=== PATIENT | male | born 1945 | race Caucasian/White ===

== ENCOUNTER 2022-03-19 08:45 | Emergency (ER) | payer MEDICARE, OTHER, SELFPAY ==
[2022-03-19] VITALS (18 sets, daily range): BP systolic 104–157; BP diastolic 66–95; PULSE 64–103; RESP 16–40; TEMP 36.3; O2SAT 93–99; BMI 30.7
--- NOTE | 2022-03-19 10:55 | CRLHL7_ITS ---
For Patients: As a result of the Century Cures Act, medical imaging exams and procedure reports are released immediately into your electronic medical record. You may view this report before your referring provider. If you have questions, please contact your health care provider. INDICATION: SHORTNESS OF BREATH TECHNIQUE: Chest 2 views COMPARISON: 01/22/2021 FINDINGS: Cardiovascular and mediastinum: Postop changes. Cardiac silhouette is mildly prominent. Lungs and pleural spaces: Lungs are clear. No sign of infiltrate or mass. No sign of pleural effusion. No pneumothorax. Bones and soft tissues: No significant findings. IMPRESSION: No acute findings. Dictated by Panda Grullon MD @ 03/19/2022 12:01:42 PM (Electronically Signed)
[2022-03-19 11:39] LABS: Basophils Absolute Auto 0.03 K/uL (0.00-0.30); Basophils Percent Auto 0.4 % (0.0-3.0); Eosinophils Absolute Auto 0.15 K/uL (0.00-0.50); Eosinophils Percent Auto 1.8 % (0.0-7.0); Hematocrit 46.3 % (37.0-53.0); Hemoglobin* 15.8 gm/dL (13.5-17.5); Immature Granulocytes Abs Auto 0.02 K/uL (0.00-0.30); Immature Granulocytes Pct Auto 0.2 %; Lymphocytes Absolute Auto 2.79 K/uL (0.90-2.90); Lymphocytes Percent Auto 33.2 % (20-44); Mean Corpuscular HGB Conc 34 gm/dL (32-36); Mean Corpuscular Hemoglobin 32 pg (26-34); Mean Corpuscular Volume 95 fL (80-100); Monocytes Percent Auto 10.2 % (0.0-11.0); Neutrophils Absolute Auto 4.55 K/uL (1.7-7.0); Neutrophils Percent Auto 54.2 % (42.0-72.0); Platelet Count* 242 K/uL (140-440); RDW Coefficient of Variation % 11.8 % (11.5-15.5); Red Blood Count 4.89 m/uL (4.30-5.90)
[2022-03-19 11:43] LABS: Slide Review Reflex No
[2022-03-19 11:54] LABS: Chloride* 104 mmol/L (96-114); Potassium* 4.3 mmol/L (3.6-5.1); Sodium* 138 mmol/L (135-149)
[2022-03-19 11:55] LABS: INR 2.01 (0.91-1.10); Partial Thromboplastin Time* 43 Seconds (23-33); Prothrombin Time 23.8 Seconds
[2022-03-19 11:57] LABS: Blood Urea Nitrogen* 16 mg/dL (7-30); Carbon Dioxide* 25 mmol/L (20-32); Creatinine* 0.8 mg/dL (0.5-1.5); Est. Creatinine Clearance* 55.83; Estimated Glomerular Filt Rate 91 ml/min; Glucose* 116 mg/dL (60-115)
[2022-03-19 11:58] LABS: Calcium* 9.8 mg/dL (8.4-10.6)
[2022-03-19 12:10] LABS: Troponin I* 0.01 ng/mL (0.01-0.04)
[2022-03-19 12:11] LABS: NT Pro B Type NatriureticPept* 932 pg/mL
[2022-03-19 12:34] LABS: PCR FLU A Negative PCR FLU A (Negative); PCR FLU B Negative PCR FLU B (Negative); PCR RSV Negative PCR RSV (Negative)
[2022-03-19 12:44] LABS: SARS PCR* Negative SARS-CoV-2 (Negative)
--- NOTE | 2022-03-19 12:56 | ED.SOB ---
HPI - SOB/Dyspnea General Date Seen: 03/19/22 Chief Complaint: Shortness of Breath/Dyspnea Stated Complaint: Shortness of breath Time Seen by Provider: 03/19/22 10:46 Source: patient and family Mode of arrival: ambulatory Limitations: no limitations History of Present Illness HPI Narrative: Patient is a very nice 76-year-old gentleman who presents here with the feeling that he needs cardioversion. He has had this multiple times in the past, he has a history of atrial flutter, and since the last 36 hours is noted his heart was a little bit more elevated in nature. By elevated he means rounding faster. He has some very mild shortness of breath when he walks around he denies any chest pain, he has had no leg swelling, coughing hemoptysis fevers chills or other issues. He has been taking his medications regularly, including his Coumadin and is anti dysrhythmic. Presents here with his , Related Data Home oxygen amount: none Home Medications Medication Instructions Recorded Confirmed aspirin 81 mg capsule 81 mg PO DAILY 03/19/22 03/19/22 lisinopril 5 mg tablet 5 mg PO DAILY 03/19/22 03/19/22 metoprolol succinate 100 mg 100 mg PO BID 03/19/22 03/19/22 tablet,extended release 24 hr triamterene-hydrochlorothiazid .ROUTE 03/19/22 warfarin 4 mg tablet 4 mg PO DAILY 03/19/22 03/19/22 Allergies Allergy/AdvReac Type Severity Reaction Status Date / Time No Known Drug Allergies Allergy Verified 03/19/22 09:17 Review of Systems Status of ROS: Reports: 10 or more systems reviewed and unremarkable except as noted in History and below PFSH PFS Social History Smoking Status: Never smoker Do you use any of these nicotine containing products: None Second hand tobacco smoke exposure: No How often do you have a drink containing alcohol: never How often do you have six or more drinks on one occasion: Never AUDIT-C Alcohol total score: 0 Non-prescribed substance use: denies use service: No Exam Narrative: Exam Narrative: Patient is speaking normally, problem with no slurring words, oriented x3. Head eyes ears nose and throat exam show equal pupils, no scleral icterus, extraocular muscles are normal, no facial droop, speech is normal, trachea normal and midline. Thyroid normal midline palpable not enlarged. Chest shows symmetrical rise bilaterally, normal auscultation with no wheezes, no increased work of breathing, no overt bruising or lesions seen, no tenderness is noted on auscultation. Heart sounds normal with no S3-S4 no murmurs clicks or gallops. Abdomen shows no obvious masses or hepatosplenomegaly, no organomegaly, bowel sounds are normal in all quadrants. No tenderness is noted also in all quadrants. Upper and lower extremities show normal power, normal range of motion, pulses are normal, sensations normal, fine motor movements are normal, pelvis is stable to rocking. Cervical spine shows normal range of motion, and palpably not tender. Thoracic spine shows normal range of motion, and palpably not tender, lumbar spine shows no tenderness to palpation percussion and is otherwise normal range of motion. Skin shows no rashes, petechiae or eccymosis. Is rather rate seems to be regular at 110. I reviewed the EKG which showed atrial flutter to 2-1 conduction. Const: Vital Signs, click to edit/add: Vital Signs - 24 hr 03/19/22 09:11 03/19/22 13:37 03/19/22 11:36 Temperature 97.3 F L Pulse Rate 102 H Pulse Rate [Right Pulse Oximeter] 98 Respiratory Rate 16 Blood Pressure Blood Pressure [Ri ght Upper Arm] 134/84 Pulse Oximetry 95 99 93 Oxygen Delivery Me thod Room Air Nasal Cannula Oxygen Flow Rate 2 03/19/22 11:45 03/19/22 12:00 03/19/22 12:02 Temperature Pulse Rate 101 H 100 99 Pulse Rate [Right Pulse Oximeter] Respiratory Rate Blood Pressure 122/88 Blood Pressure [Ri ght Upper Arm] Pulse Oximetry 94 93 93 Oxygen Delivery Me thod Oxygen Flow Rate 03/19/22 12:15 03/19/22 12:30 03/19/22 12:31 Temperature Pulse Rate 99 101 H 101 H Pulse Rate [Right Pulse Oximeter] Respiratory Rate Blood Pressure 112/85 Blood Pressure [Ri t Upper Arm] Pulse Oximetry 95 94 93 Oxygen Delivery Me thod Oxygen Flow Rate 03/19/22 12:45 03/19/22 13:08 03/19/22 13:15 Temperature Pulse Rate 102 H 103 H 102 H Pulse Rate [Right Pulse Oximeter] Respiratory Rate 23 Blood Pressure Blood Pressure [Ri ght Upper Arm] Pulse Oximetry 93 96 98 Oxygen Delivery Me thod Oxygen Flow Rate 03/19/22 13:23 03/19/22 13:27 03/19/22 13:30 Temperature Pulse Rate 67 68 Pulse Rate [Right Pulse Oximeter] Respiratory Rate 20 40 H 33 H Blood Pressure 157/95 H 123/78 Blood Pressure [Ri ght Upper Arm] Pulse Oximetry 97 97 Oxygen Delivery Me thod Oxygen Flow Rate 03/19/22 13:32 03/19/22 13:36 Temperature Pulse Rate 67 64 Pulse Rate [Right Pulse Oximeter] Respiratory Rate 31 H 19 Blood Pressure 117/66 104/67 Blood Pressure [Ri ght Upper Arm] Pulse Oximetry 97 97 Oxygen Delivery Me thod Nasal Cannula Oxygen Flow Rate 2 Documenting provider has reviewed patient's vital signs: yes Common normals: no apparent distress Course Reevaluation(s) Reevaluation #1: With a 2nd ER provider present, we use propofol, for conscious sedation, we were able to do 1 synchronized cardioversion at 50 joules, into normal sinus rhythm, patient tolerated this well is currently in recovery, once he has recovered, we can discharge him home, if he is doing well. Repeat EKG shows normal sinus rhythm, with a rate of 75, Time: 13:34 Vital Signs Vital signs: Initial Vital Signs Temperature 97.3 F L 03/19/22 09:11 Temperature Source Temporal Artery Scan 03/19/22 09:11 Pulse Rate 98 03/19/22 09:11 Respiratory Rate 16 03/19/22 09:11 Blood Pressure 134/84 03/19/22 09:11 Blood Pressure Mean 100 03/19/22 09:11 Blood Pressure Position Sitting 03/19/22 09:11 Pulse Oximetry 95 03/19/22 09:11 Oxygen Delivery Method 03/19/22 09:11 Vital Signs Temperature 97.3 F L 03/19/22 09:11 Pulse Rate 98 03/19/22 09:11 Respiratory Rate 16 03/19/22 09:11 Blood Pressure 134/84 03/19/22 09:11 Pulse Oximetry 95 03/19/22 09:11 Oxygen Delivery Method 03/19/22 09:11 Temperature 97.3 F L 03/19/22 09:11 Pulse Rate 64 03/19/22 13:36 Respiratory Rate 19 03/19/22 13:36 Blood Pressure 104/67 03/19/22 13:36 Pulse Oximetry 99 03/19/22 13:37 Oxygen Delivery Method 03/19/22 13:37 Oxygen Flow Rate 2 03/19/22 13:37 MDM - SOB/Dyspnea MDM Narrative Medical decision making narrative: Differential diagnosis includes but is not limited to psychosocial stress, thyroid abnormalities, CHF, SVT, atrial fibrillation, ventricular tachycardia and ventricular fibrillation. This includes the life-threatening complications of heart failure, V-tach, and VFib Medical Records Attestation: I reviewed the patient's medical records. Lab Data Attestation: I reviewed the patient's lab results. Labs: Lab Results 03/19/22 03/19/22 03/19/22 Range/Units 10:50 10:50 10:50 WBC 8.40 (4.50-11.00) K/uL RBC 4.89 (4.30-5.90) m/uL Hgb 15.8 (13.5-17.5) gm/dL Hct 46.3 (37.0-53.0) % MCV 95 (80-100) fL MCH 32 (26-34) pg MCHC 34 (32-36) gm/dL RDW Coeff of Toy 11.8 (11.5-15.5) % Plt Count 242 (140-440) K/uL Neut % (Auto) 54.2 (42.0-72.0) % Lymph % (Auto) 33.2 (20-44) % [place] % (Auto) 10.2 (0.0-11.0) % Eos % (Auto) 1.8 (0.0-7.0) % Baso % (Auto) 0.4 (0.0-3.0) % Neut # (Auto) 4.55 (1.7-7.0) K/uL Lymph # (Auto) 2.79 (0.90-2.90) K/uL [place] # (Auto) 0.90 (0.00-0.90) K/UL Eos # (Auto) 0.15 (0.00-0.50) K/uL Baso # (Auto) 0.03 (0.00-0.30) K/uL INR 2.01 H (0.91-1.10) APTT 43 H (23-33) Seconds Sodium (135-149) mmol/L Potassium (3.6-5.1) mmol/L Chloride (96-114) mmol/L Carbon Dioxide (20-32) mmol/L BUN (7-30) mg/dL Creatinine (0.5-1.5) mg/dL Estimated Creat Clear Estimated GFR ml/min Glucose (60-115) mg/dL Calcium (8.4-10.6) mg/dL Troponin I (0.01-0.04) ng/mL NT-Pro-B Natriuret Pep pg/mL TSH (0.270-4.20) uIU/mL SARS-CoV-2 (PCR) Negative SARS-CoV-2 (Negative) Influenza Type A (PCR) Negative PCR FLU A (Negative) Influenza Type B (PCR) Negative PCR FLU B (Negative) RSV (PCR) Negative PCR RSV (Negative) 03/19/22 03/19/22 03/19/22 Range/Units 10:50 10:50 10:55 WBC (4.50-11.00) K/uL RBC (4.30-5.90) m/uL Hgb (13.5-17.5) gm/dL Hct (37.0-53.0) % MCV (80-100) fL MCH (26-34) pg MCHC (32-36) gm/dL RDW Coeff of Toy (11.5-15.5) % Plt Count (140-440) K/uL Neut % (Auto) (42.0-72.0) % Lymph % (Auto) (20-44) % [place] % (Auto) (0.0-11.0) % Eos % (Auto) (0.0-7.0) % Baso % (Auto) (0.0-3.0) % Neut # (Auto) (1.7-7.0) K/uL Lymph # (Auto) (0.90-2.90) K/uL [place] # (Auto) (0.00-0.90) K/UL Eos # (Auto) (0.00-0.50) K/uL Baso # (Auto) (0.00-0.30) K/uL INR (0.91-1.10) APTT (23-33) Seconds Sodium 138 (135-149) mmol/L Potassium 4.3 (3.6-5.1) mmol/L Chloride 104 (96-114) mmol/L Carbon Dioxide 25 (20-32) mmol/L BUN 16 (7-30) mg/dL Creatinine 0.8 (0.5-1.5) mg/dL Estimated Creat Clear 55.83 Estimated GFR 91 ml/min Glucose 116 H (60-115) mg/dL Calcium 9.8 (8.4-10.6) mg/dL Troponin I 0.01 (0.01-0.04) ng/mL NT-Pro-B Natriuret Pep 932 pg/mL TSH 1.130 (0.270-4.20) uIU/mL SARS-CoV-2 (PCR) (Negative) Influenza Type A (PCR) (Negative) Influenza Type B (PCR) (Negative) RSV (PCR) (Negative) ECG Data Attestation: I personally reviewed and interpreted this ECG as follows: Prior ECG tracings: available for review Interpretation: atrial flutter 2-1 conduction, Discharge Plan Discharge Clinical Impression: Anticoagulation adequate, Atrial flutter, Encounter for cardioversion procedure Patient Disposition: Home w/ Parent or Adult Condition: Improved Instructions: Atrial Flutter (ED), Safe Use of Anticoagulants (ED) Additional Instructions: home rest continue medications as directed follow-up as needed with primary care, return as needed if increasing chest pain shortness of breath or other symptoms. Prescriptions: No Action metoprolol succinate 100 mg tablet extended release 24 hr 100 mg PO BID aspirin 81 mg capsule 81 mg PO DAILY triamterene-hydrochlorothiazid .ROUTE lisinopril 5 mg tablet 5 mg PO DAILY warfarin 4 mg tablet 4 mg PO DAILY Follow Up/Referrals: Junior Woods MD [Primary Care Provider] - Stand Alone Forms: [employer] Info Instructions
[2022-03-19] MEDS: PROPOFOL 10 MG/ML INJ 75 MG IVP (13:42)
[2022-03-19] MEDS: 0.9 % SODIUM CHLORIDE 1000 ml 1,000 ML IV (13:42)
--- NOTE | 2022-03-19 13:45 | RESP.RT ---
?Cardioversion with propofol, for conscious sedation; patient placed on Nasal Cannula 2 Lpm with EtCO2 in line 36 torr, SaO2 98%, respiratory rate 16/minute. Post cardioversion patient held in jaw thrust maneuver for couple of minutes to assist with patient breathing. Continue with Nasal Cannula 2 Lpm, SaO2 98%, EtCO2 34 torr, respiratory rate 18/minute.
== END 2022-03-19 14:28 | disposition home or self-care (01) ==
PROVIDERS: Emergency Provider Family Medicine; PCP Family Medicine
DX: I48.92 Unspecified atrial flutter (principal); Z79.01 Long term (current) use of anticoagulants
CPT/HCPCS: 36415; 71046; 80048; 83880; 84443; 84484; 85025; 85610; 85730; 87502; 87634; 87635; 92960; 93005; 99285; 99291; J2704; J7030

== ENCOUNTER 2022-07-12 07:01 | Emergency (ER) | payer MEDICARE, OTHER, SELFPAY ==
[2022-07-12] VITALS (41 sets, daily range): BP systolic 88–144; BP diastolic 54–97; PULSE 49–97; RESP 16; TEMP 35.9; O2SAT 88–98; BMI 30.7
--- NOTE | 2022-07-12 07:23 | ED_ITS ---
HPI - General Adult General Time Seen by Provider: 07:10 Date Seen: 07/12/22 Chief complaint: Arrhythmia/Palpitations Stated complaint: afib Time Seen by Provider: 07/12/22 07:08 Source: patient, RN notes reviewed and old records reviewed Mode of arrival: ambulatory Limitations: no limitations History of Present Illness HPI narrative: 77-year-old male with history of atrial fibrillation/flutter who presents today with 2 days of shortness of breath and irregular heartbeat. Patient says he 1st noticed this night before last. He has no chest pain, as noted little bit dyspnea on exertion. No orthopnea, cough, or leg swelling. Reports last INR a month ago was 2.1 and that he has been taking his medications. Took his metoprolol this morning, otherwise has been NPO since last night. Has had prior cardioversion is requesting this again. Denies any recent illness or change of medications. Related Data Home Medications Medication Instructions Recorded Confirmed aspirin 81 mg capsule 81 mg PO DAILY 03/19/22 03/19/22 lisinopril 5 mg tablet 5 mg PO DAILY 03/19/22 03/19/22 metoprolol succinate 100 mg 100 mg PO BID 03/19/22 03/19/22 tablet,extended release 24 hr triamterene-hydrochlorothiazid .ROUTE 03/19/22 warfarin 4 mg tablet 4 mg PO DAILY 03/19/22 03/19/22 Allergies Allergy/AdvReac Type Severity Reaction Status Date / Time No Known Drug Allergies Allergy Verified 03/19/22 09:17 [facility] Social History Smoking Status: Never smoker Do you use any of these nicotine containing products: None Second hand tobacco smoke exposure: No How often do you have a drink containing alcohol: never How often do you have six or more drinks on one occasion: Never AUDIT-C Alcohol total score: 0 Non-prescribed substance use: denies use service: No Exam Narrative: Exam Narrative: General: Well-developed and well-nourished, no acute distress Head: Atraumatic and normocephalic Eyes: Pupils are equal reactive, extraocular motions intact, conjunctiva clear ENT: External nose and ears are normal, posterior pharynx without erythema or exudate Neck: No midline cervical tenderness, full spontaneous range of motion the neck, trachea midline, no adenopathy Heart: Regular rate and rhythm no murmurs or thrills Lungs: Clear to auscultation bilaterally without wheezes or crackles Abdomen: Soft, nontender, nondistended with active bowel sounds Musculoskeletal: No tenderness, deformity, or edema Neurologic: Awake, alert, and oriented x3, no gross focal neurologic deficits, cranial nerves intact as tested Psych: Mood and affect are appropriate Skin: No rashes Const: Vital Signs, click to edit/add: Vital Signs - 24 hr 07/12/22 07:05 Temperature 96.6 F L Pulse Rate [Femora l] 96 Respiratory Rate 16 Blood Pressure [Le ft Upper Arm] 142/97 H Pulse Oximetry 96 Oxygen Delivery Me thod Room Air Course Course Hospital Course: Patient seen and examined, prior records reviewed. Patient presents with dyspnea on exertion, initial EKG demonstrates atrial flutter with 2-1 block. Lungs are clear, no lower extremity swelling. Given time of onset of symptoms and patient is anticoagulated, he is a good candidate for cardioversion. Even if the INR is little bit low today, risk thrombus is low given time of onset of symptoms and patient is requesting to proceed after discussion of risk. Anesthesia is consulted and plan for sedation and cardioversion this morning. Reevaluation(s) Reevaluation #1: Electrical cardioversion for symptomatic atrial flutter. Risks and benefits were discussed with the patient, written consent was signed. Sedation with propofol per anesthesia. A single synchronized shock of 100 joules was delivered with conversion to sinus rhythm initially little bradycardic in the 50s. Patient tolerated this well and was recovered from sedation. Total time 5 minutes Time: 07:32 Reevaluation #2: Labs independently interpreted by me are reassuring with normal electrolytes, normal magnesium, slightly elevated BNP but indeterminate range, INR is pending. When patient recovered from sedation is stable for discharge. Time: 08:01 Vital Signs Vital signs: Initial Vital Signs Temperature 96.6 F L 07/12/22 07:05 Temperature Source Temporal Artery Scan 07/12/22 07:05 Pulse Rate 96 07/12/22 07:05 Pulse Rhythm Regular 07/12/22 07:05 Respiratory Rate 16 07/12/22 07:05 Blood Pressure 142/97 H 07/12/22 07:05 Blood Pressure Mean 112 H 07/12/22 07:05 Pulse Oximetry 96 07/12/22 07:05 Oxygen Delivery Method Room Air 07/12/22 07:05 Vital Signs Temperature 96.6 F L 07/12/22 07:05 Pulse Rate 96 07/12/22 07:05 Respiratory Rate 16 07/12/22 07:05 Blood Pressure 142/97 H 07/12/22 07:05 Pulse Oximetry 96 07/12/22 07:05 Oxygen Delivery Method Room Air 07/12/22 07:05 Temperature 96.6 F L 07/12/22 07:05 Pulse Rate 96 07/12/22 07:05 Respiratory Rate 16 07/12/22 07:05 Blood Pressure 142/97 H 07/12/22 07:05 Pulse Oximetry 96 07/12/22 07:05 Oxygen Delivery Method Room Air 07/12/22 07:05 Medical Decision Making Lab Data Labs: Lab Results 07/12/22 Range/Units 07:20 WBC 7.86 (4.50-11.00) K/uL RBC 5.02 (4.30-5.90) m/uL Hgb 15.8 (13.5-17.5) gm/dL Hct 46.7 (37.0-53.0) % MCV 93 (80-100) fL MCH 32 (26-34) pg MCHC 34 (32-36) gm/dL RDW Coeff of Toy 11.6 (11.5-15.5) % Plt Count 239 (140-440) K/uL Neut % (Auto) 55.8 (42.0-72.0) % Lymph % (Auto) 30.3 (20-44) % [place] % (Auto) 10.1 (0.0-11.0) % Eos % (Auto) 3.1 (0.0-7.0) % Baso % (Auto) 0.3 (0.0-3.0) % Neut # (Auto) 4.40 (1.7-7.0) K/uL Lymph # (Auto) 2.38 (0.90-2.90) K/uL [place] # (Auto) 0.80 (0.00-0.90) K/UL Eos # (Auto) 0.24 (0.00-0.50) K/uL Baso # (Auto) 0.02 (0.00-0.30) K/uL Sodium 133 L (135-149) mmol/L Potassium 3.9 (3.6-5.1) mmol/L Chloride 98 (96-114) mmol/L Carbon Dioxide 25 (20-32) mmol/L BUN 15 (7-30) mg/dL Creatinine 0.8 (0.5-1.5) mg/dL Estimated Creat Clear 54.94 Estimated GFR 91 ml/min Glucose 139 H (60-115) mg/dL Calcium 9.3 (8.4-10.6) mg/dL Magnesium 1.8 (1.5-2.6) mg/dL NT-Pro-B Natriuret Pep 945 pg/mL POC Troponin I 0.02 (0.01-0.04) ng/ml ECG Data Attestation: I personally reviewed and interpreted this ECG as follows: Prior ECG tracings: available for review Interpretation: Performed at 7:05 a.m. demonstrates atrial flutter with 2-1 ventricular block rate 98, left axis deviation, no acute ischemic changes, QTC 464, WI 172. Compared to prior of March 2022, atrial flutter has replaced sinus rhythm but compared to earlier that same day in March 2022, no change Repeat EKG performed after cardioversion at 7:40 a.m. demonstrates sinus rhythm rate 51, nonspecific intraventricular conduction delay, no acute ST elevations or depressions, normal intervals, normal axis. Compared to prior of earlier today sinus rhythm has replaced atrial flutter. Compared to prior of March 04, rate has decreased but otherwise no changes Critical Care Time Critical Care Time Critical Care Time: Yes (Symptomatic atrial flutter (short of breath) ) Attestation: The patient required my highest level preparedness to intervene emergently and I personally spent this critical care time directly and personally managing the patient. This critical care time included: Obtaining a history; Examining the patient; Pulse oximetry; Ordering and reviewing of studies; Arranging urgent treatment with development of a management plan; Evaluation of patients response to treatment; Frequent reassessment discussions with other providers. This critical care time was performed to assess and manage the high probability of imminent life-threatening deterioration that could result in multiorgan failure. It was exclusive of separate billable procedures and treating other patients and teaching time. Total Critical Care Time in Minutes: 25 Discharge Plan Discharge Clinical Impression: Atrial flutter Patient Disposition: Home w/ Parent or Adult Condition: Improved Instructions: Atrial Flutter (DC), Procedural Sedation (ED) Additional Instructions: Continue your current medications and follow up with primary care. No strenuous activity today. Activity Level: No strenuous activity Prescriptions: No Action metoprolol succinate 100 mg tablet extended release 24 hr 100 mg PO BID aspirin 81 mg capsule 81 mg PO DAILY triamterene-hydrochlorothiazid .ROUTE lisinopril 5 mg tablet 5 mg PO DAILY warfarin 4 mg tablet 4 mg PO DAILY Follow Up/Referrals: Junior Woods MD [Primary Care Provider] - Stand Alone Forms: [employer] Info Instructions
[2022-07-12 07:29] LABS: Basophils Absolute Auto 0.02 K/uL (0.00-0.30); Basophils Percent Auto 0.3 % (0.0-3.0); Eosinophils Absolute Auto 0.24 K/uL (0.00-0.50); Eosinophils Percent Auto 3.1 % (0.0-7.0); Hematocrit 46.7 % (37.0-53.0); Hemoglobin* 15.8 gm/dL (13.5-17.5); Immature Granulocytes Abs Auto 0.03 K/uL (0.00-0.30); Immature Granulocytes Pct Auto 0.4 %; Lymphocytes Absolute Auto 2.38 K/uL (0.90-2.90); Lymphocytes Percent Auto 30.3 % (20-44); Mean Corpuscular HGB Conc 34 gm/dL (32-36); Mean Corpuscular Hemoglobin 32 pg (26-34); Mean Corpuscular Volume 93 fL (80-100); Monocytes Percent Auto 10.1 % (0.0-11.0); Neutrophils Percent Auto 55.8 % (42.0-72.0); Platelet Count* 239 K/uL (140-440); RDW Coefficient of Variation % 11.6 % (11.5-15.5); Red Blood Count 5.02 m/uL (4.30-5.90); White Blood Count* 7.86 K/uL (4.50-11.00)
[2022-07-12] MEDS: 0.9 % SODIUM CHLORIDE 1000 ml 1,000 ML IV (07:30)
[2022-07-12 07:42] LABS: Chloride* 98 mmol/L (96-114)
[2022-07-12 07:43] LABS: Potassium* 3.9 mmol/L (3.6-5.1); Sodium* 133 mmol/L (135-149)
[2022-07-12 07:45] LABS: Creatinine* 0.8 mg/dL (0.5-1.5); Est. Creatinine Clearance* 54.94; Estimated Glomerular Filt Rate 91 ml/min
[2022-07-12 07:46] LABS: Blood Urea Nitrogen* 15 mg/dL (7-30); Calcium* 9.3 mg/dL (8.4-10.6); Carbon Dioxide* 25 mmol/L (20-32); Glucose* 139 mg/dL (60-115); Magnesium* 1.8 mg/dL (1.5-2.6)
[2022-07-12 07:47] LABS: Troponin, Point-of-Care* 0.02 ng/ml (0.01-0.04)
[2022-07-12 07:57] LABS: Slide Review Reflex No
[2022-07-12 07:58] LABS: NT Pro B Type NatriureticPept* 945 pg/mL
[2022-07-12 08:00] LABS: INR 2.65 (0.91-1.10); Prothrombin Time 29.5 Seconds
--- NOTE | 2022-07-12 08:04 | W.ANESCHARGE ---
Anesthesia Charges Start Date/Time Anesthesia Start Date: 07/12/22 Anesthesia Start Time: 07:30 Stop Date/Time Anesthesia Stop Date: 07/12/22 Anesthesia Stop Time: 07:38 Summary Emergency: MDA Extremes of Age - Over 70 or under 1: MDA
--- NOTE | 2022-07-12 08:10 | ED.NURSE ---
Cardioversion started at 0732 with jesika leiva and Dr Joseph. Anesthesia gave 75mg propofol at 0732. Pt was cardioverted at 0734. Pt recovered and was able to d/c at 0805. 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 ahas a few appointments and will milk pickup driver pt around [phone]
--- NOTE | 2022-07-12 08:14 | P.ANES_ITS ---
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
--- NOTE | 2022-07-12 08:14 | W.ANESCHARGE ---
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
== END 2022-07-12 09:53 | disposition home or self-care (01) ==
PROVIDERS: Emergency Provider Family Medicine; PCP Family Medicine
DX: I48.92 Unspecified atrial flutter (principal)
CPT/HCPCS: 00410; 36415; 80048; 83735; 83880; 84484; 85025; 85610; 92960; 93005; 94761; 99100; 99140; 99285; 99291; J2704; J7030

== ENCOUNTER 2022-09-03 07:01 | Emergency (ER) | payer OTHER, MEDICARE, SELFPAY ==
[2022-09-03] VITALS (25 sets, daily range): BP systolic 90–141; BP diastolic 56–92; PULSE 49–98; RESP 16–18; TEMP 35.8; O2SAT 91–98; BMI 29.8
--- NOTE | 2022-09-03 07:16 | CRLHL7_ITS ---
For Patients: As a result of the Cures Act, medical imaging exams and procedure reports are released immediately into your electronic medical record. You may view this report before your referring provider. If you have questions, please contact your health care provider. INDICATION: Palpitation COMPARISON: March 19, 2022 TECHNIQUE: Single-view study FINDINGS: TUBES AND LINES: None. HEART AND MEDIASTINUM: The heart size is normal. The mediastinal contour appears normal for patient age.Sternotomy LUNGS AND PLEURAL SPACES: The lungs appear normal.The pleural spaces are unremarkable. OSSEOUS STRUCTURES: Age-appropriate appearance. No acute focal finding. IMPRESSION: No evidence of active pulmonary disease. Sternotomy. Dictated by Natanael Hanks MD @ 09/03/2022 8:02:09 AM (Electronically Signed)
--- NOTE | 2022-09-03 07:17 | ED.ARRPALP ---
HPI - Arrhythmia/Palpitations General Chief Complaint: Arrhythmia/Palpitations Stated Complaint: a-fib Time Seen by Provider: 09/03/22 07:05 History of Present Illness HPI narrative: Patient is a 77-year-old gentleman who has been having symptoms of irregular heartbeat for the last 18-24 hours. Patient has history of paroxysmal atrial flutter and is been cardioverted many times. Patient describes no chest pain no shortness of breath no nausea no vomiting no fevers no chills. His most recent cardioversion was roughly 2 months ago. When asked how many times he has been cardioverted he states more times and he can remember. No other illness recently patient has otherwise been in his usual state of health. Patient is on Coumadin and has been compliant with his medication. Related Data Home Medications Medication Instructions Recorded Confirmed aspirin 81 mg capsule 81 mg PO DAILY 03/19/22 03/19/22 lisinopril 5 mg tablet 5 mg PO DAILY 03/19/22 03/19/22 metoprolol succinate 100 mg 100 mg PO BID 03/19/22 03/19/22 tablet,extended release 24 hr triamterene-hydrochlorothiazid .ROUTE 03/19/22 warfarin 4 mg tablet 4 mg PO DAILY 03/19/22 03/19/22 Allergies Allergy/AdvReac Type Severity Reaction Status Date / Time No Known Drug Allergies Allergy Verified 03/19/22 09:17 Review of Systems Status of ROS: Reports: 6 or more systems reviewed and unremarkable except as noted in History and below [facility] Medical History Hypertension ?I10 - Essential (primary) hypertension (ICD-10) Atrial flutter ?I48.92 - Unspecified atrial flutter (ICD-10) Social History Smoking Status: Never smoker Do you use any of these nicotine containing products: None Second hand tobacco smoke exposure: No How often do you have a drink containing alcohol: never How often do you have six or more drinks on one occasion: Never AUDIT-C Alcohol total score: 0 Non-prescribed substance use: denies use service: Yes Exam Narrative: Exam Narrative: EXAM GENERAL: Patient appears comfortable and well. EYES: No scleral icterus. ENT: Tympanic membranes and oropharynx normal. THYROID: no thyroid nodules or thyromegaly. LYMPH: No supraclavicular or cervical lymphadenopathy. SKIN: Visible skin seen during exam normal or with benign process only. EXT: No dependent lower extremity pedal edema. HEART: Regular rate and rhythm with no murmurs, rubs, or gallops. LUNGS: Clear to auscultation bilaterally with no crackles or wheezes. ABD: Soft, non tender, non distended. PSYCH: Good eye contact, speech is not pressured. Const: Vital Signs, click to edit/add: Vital Signs - 24 hr 09/03/22 07:10 Temperature 96.5 F L Pulse Rate [Right Pulse Oximeter] 96 Respiratory Rate 18 Blood Pressure [Ri ght Upper Arm] 127/92 H Pulse Oximetry 95 Oxygen Delivery Me thod Room Air Course Course Hospital Course: Patient seen examined. Chest x-ray ordered. EKG upon my review shows atrial flutter with 2-1 AV conduction. CBC basic metabolic panel troponin INR pending. Anticipate cardioversion when laboratory studies return. Vital Signs Vital signs: Initial Vital Signs Temperature 96.5 F L 09/03/22 07:10 Temperature Source Temporal Artery Scan 09/03/22 07:10 Pulse Rate 96 09/03/22 07:10 Respiratory Rate 18 09/03/22 07:10 Blood Pressure 127/92 H 09/03/22 07:10 Blood Pressure Mean 103 09/03/22 07:10 Blood Pressure Position Sitting 09/03/22 07:10 Pulse Oximetry 95 09/03/22 07:10 Oxygen Delivery Method Room Air 09/03/22 07:10 Vital Signs Temperature 96.5 F L 09/03/22 07:10 Pulse Rate 96 09/03/22 07:10 Respiratory Rate 18 09/03/22 07:10 Blood Pressure 127/92 H 09/03/22 07:10 Pulse Oximetry 95 09/03/22 07:10 Oxygen Delivery Method Room Air 09/03/22 07:10 Temperature 96.5 F L 09/03/22 07:10 Pulse Rate 96 09/03/22 07:10 Respiratory Rate 18 09/03/22 07:10 Blood Pressure 127/92 H 09/03/22 07:10 Pulse Oximetry 95 09/03/22 07:10 Oxygen Delivery Method Room Air 09/03/22 07:10 MDM - Arrhythmia/Palpitations MDM Narrative Medical decision making narrative: Patient is a 77-year-old gentleman comes in today with atrial flutter with 2-1 conduction. He has been cardioverted many times. I did send off CBC basic metabolic panel on INR. Patient is fully anticoagulated. He is medically stable. I did review the risks and benefits of cardioversion with him and under the sedation of propofol fall with normal saline running at cardiovert him with 50 joules synchronized cardioversion. The the remainder of his laboratory studies will be reviewed by my colleague and patient will be allowed to recover with continuation of his home medications and discharge to home. Critical care time 30 minutes. Differential Diagnosis Differential diagnosis: Likely palpitations, anxiety, sinus tachycardia, artial fibrillation, artial flutter, ventricular premature beats, supraventricular tachycardia, ventricular tachycardia and WPW Lab Data Labs: Lab Results 09/03/22 Range/Units 07:20 WBC 8.71 (4.50-11.00) K/uL RBC 5.17 (4.30-5.90) m/uL Hgb 16.3 (13.5-17.5) gm/dL Hct 48.0 (37.0-53.0) % MCV 93 (80-100) fL MCH 32 (26-34) pg MCHC 34 (32-36) gm/dL RDW Coeff of Toy 11.9 (11.5-15.5) % Plt Count 257 (140-440) K/uL Neut % (Auto) 51.7 (42.0-72.0) % Lymph % (Auto) 35.8 (20-44) % [place] % (Auto) 8.7 (0.0-11.0) % Eos % (Auto) 3.3 (0.0-7.0) % Baso % (Auto) 0.3 (0.0-3.0) % Neut # (Auto) 4.49 (1.7-7.0) K/uL Lymph # (Auto) 3.12 H (0.90-2.90) K/uL [place] # (Auto) 0.80 (0.00-0.90) K/UL Eos # (Auto) 0.29 (0.00-0.50) K/uL Baso # (Auto) 0.03 (0.00-0.30) K/uL INR 2.38 H (0.91-1.10) Sodium 136 (135-149) mmol/L Potassium 4.1 (3.6-5.1) mmol/L Chloride 100 (96-114) mmol/L Carbon Dioxide 23 (20-32) mmol/L BUN 14 (7-30) mg/dL Creatinine 0.7 (0.5-1.5) mg/dL Estimated Creat Clear 56.92 Estimated GFR 94 ml/min Glucose 145 H (60-115) mg/dL Calcium 9.4 (8.4-10.6) mg/dL Discharge Plan Discharge Clinical Impression: Atrial flutter Patient Disposition: Home, Self-Care Condition: Stable Instructions: Atrial Flutter (ED) Additional Instructions: Continue current medications Follow-up with your doctor this week. Activity Level: Activity as Tolerated Discharge Diet: Regular Prescriptions: No Action metoprolol succinate 100 mg tablet extended release 24 hr 100 mg PO BID aspirin 81 mg capsule 81 mg PO DAILY triamterene-hydrochlorothiazid .ROUTE lisinopril 5 mg tablet 5 mg PO DAILY warfarin 4 mg tablet 4 mg PO DAILY Follow Up/Referrals: Junior Woods MD [Primary Care Provider] - Stand Alone Forms: [employer] Info Instructions
[2022-09-03 07:30] LABS: Basophils Absolute Auto 0.03 K/uL (0.00-0.30); Basophils Percent Auto 0.3 % (0.0-3.0); Eosinophils Absolute Auto 0.29 K/uL (0.00-0.50); Eosinophils Percent Auto 3.3 % (0.0-7.0); Hemoglobin* 16.3 gm/dL (13.5-17.5); Immature Granulocytes Abs Auto 0.02 K/uL (0.00-0.30); Immature Granulocytes Pct Auto 0.2 %; Lymphocytes Absolute Auto 3.12 K/uL (0.90-2.90); Lymphocytes Percent Auto 35.8 % (20-44); Mean Corpuscular HGB Conc 34 gm/dL (32-36); Mean Corpuscular Hemoglobin 32 pg (26-34); Mean Corpuscular Volume 93 fL (80-100); Monocytes Percent Auto 8.7 % (0.0-11.0); Neutrophils Absolute Auto 4.49 K/uL (1.7-7.0); Neutrophils Percent Auto 51.7 % (42.0-72.0); Platelet Count* 257 K/uL (140-440); RDW Coefficient of Variation % 11.9 % (11.5-15.5); Red Blood Count 5.17 m/uL (4.30-5.90); White Blood Count* 8.71 K/uL (4.50-11.00)
[2022-09-03 07:38] LABS: Slide Review Reflex No
[2022-09-03 07:49] LABS: Chloride* 100 mmol/L (96-114); Potassium* 4.1 mmol/L (3.6-5.1); Sodium* 136 mmol/L (135-149)
[2022-09-03 07:52] LABS: Blood Urea Nitrogen* 14 mg/dL (7-30); Calcium* 9.4 mg/dL (8.4-10.6); Carbon Dioxide* 23 mmol/L (20-32); Creatinine* 0.7 mg/dL (0.5-1.5); Est. Creatinine Clearance* 56.92; Estimated Glomerular Filt Rate 94 ml/min; Glucose* 145 mg/dL (60-115); INR 2.38 (0.91-1.10); Prothrombin Time 27.2 Seconds
[2022-09-03] MEDS: 0.9 % SODIUM CHLORIDE 1000 ml 1,000 ML IV (08:25)
[2022-09-03] MEDS: PROPOFOL 10 MG/ML INJ 200 MG IVP (08:29)
--- NOTE | 2022-09-03 08:48 | ED.NURSE ---
Conc sedation procedure for 50J cardioversion by Dr. Dave, propofol by Dr. Perry. RT at BS.
--- NOTE | 2022-09-03 08:58 | RESP.RT ---
Airway management for cardioversion. PT tolerated well 4L NC RR 16 before and after procedure. light snoring, no airway management required. SPO2 97%. See nursing charting for the rest of vitals.
[2022-09-03 09:13] LABS: Magnesium* 2.1 mg/dL (1.5-2.6)
[2022-09-03 09:40] LABS: Troponin I* < 0.01 ng/mL (0.01-0.04)
--- NOTE | 2022-09-03 10:04 | PC.NURSE ---
witnessed waste 100mg propofol with Carmelina Joy RN
== END 2022-09-03 09:56 | disposition home or self-care (01) ==
PROVIDERS: Emergency Provider Internal Medicine; PCP Family Medicine
DX: I48.92 Unspecified atrial flutter (principal)
CPT/HCPCS: 36415; 71045; 80048; 83735; 84484; 85025; 85610; 92960; 93005; 99284; 99291; J2704; J7030

== ENCOUNTER 2023-11-13 07:09 | Emergency (ER) | payer MEDICARE, OTHER, SELFPAY ==
[2023-11-13 07:15] VITALS: BP 136/87; PULSE 93; RESP 16; TEMP 36.2; O2SAT 94; BMI 29.8
[2023-11-13 07:48] LABS: Troponin, Point-of-Care* 0.01 ng/ml (0.01-0.04)
--- NOTE | 2023-11-13 08:00 | ED.GENADULT ---
HPI - General Adult General Date Seen: 11/13/23 Chief complaint: Arrhythmia/Palpitations Stated complaint: A-Fib Time Seen by Provider: 11/13/23 07:32 History of Present Illness HPI narrative: 78-year-old gentleman with a history of AFib (and a flutter on 09/03 22 and by 07/12/22 in ER) presenting to the ER this morning for palpitations. He also has a history of previous open cardiac surgery for repair of PFO, stroke about 25 years ago on chronic anticoagulation with warfarin. He says he has had multiple episodes of paroxysmal AFib over the years, roughly about once per year. He underwent cardioversion in August and prior to that had undergone cardioversion in July. He has a history of paroxysmal AFib and is on warfarin for stroke prophylaxis. Patient notes that he checks his vital signs every morning with his blood pressure cuff. Blood pressure is typically normal in pulse rates typically in the 50s because he is on a beta-fredo. Yesterday today when he checked his vital signs he noticed that his pulse rate was higher, in the 90s. She was suspicious that he had gone into AFib. He is not feeling any palpitations but he does feel a little bit jittery and shaky and little bit weak. No chest pain. No shortness of breath. No dizzy spells. No fainting. No swelling in his legs. He came to the ER this morning suspecting that he was in AFib. He has had cardioversions for this in the past. Last meal was 6:00 a.m. last night. Nothing eat or drink this morning. He has had no history of problems with sedation from his previous cardioversions. His summer babysitter is through the [facility]. He sees them at the clinic in [place]. He has some primary care through [facility], [facility] INR in October was about 2.3 Related Data Home Medications ?Medication ?Instructions ?Recorded ?Confirmed aspirin 81 mg capsule 81 mg PO DAILY 03/19/22 03/19/22 lisinopril 5 mg tablet 5 mg PO DAILY 03/19/22 03/19/22 metoprolol succinate 100 mg 100 mg PO BID 03/19/22 03/19/22 tablet,extended release 24 hr triamterene-hydrochlorothiazid .ROUTE 03/19/22 warfarin 4 mg tablet 4 mg PO DAILY 03/19/22 03/19/22 Allergies Allergy/AdvReac Type Severity Reaction Status Date / Time No Known Drug Allergies Allergy Verified 03/19/22 09:17 [facility] Medical History Hypertension ?I10 - Essential (primary) hypertension (ICD-10) Atrial flutter ?I48.92 - Unspecified atrial flutter (ICD-10) Social History Smoking Status: Never smoker Do you use any of these nicotine containing products: None Second hand tobacco smoke exposure: No How often do you have a drink containing alcohol: never How often do you have six or more drinks on one occasion: Never AUDIT-C Alcohol total score: 0 Non-prescribed substance use: denies use service: Yes Exam Narrative: Exam Narrative: Constitutional: Appears well-developed and well-nourished. Alert. Conversant. Non toxic. HENT: Head: Atraumatic. Nose: Nose normal. Mouth/Throat: Oral mucosa is clear and moist. no trismus. Pharynx normal. Tonsils symmetric. No tonsillar enlargement, erythema, or exudate. Mallampati grade 3 Eyes: Conjunctivae normal. EOM normal. Pupils equal, round, and reactive to light. No scleral icterus. Neck: Normal range of motion . full flexion extension. Neck supple. No tracheal deviation present. No JVD Cardiovascular: Normal rate, regular rhythm. No gallop. No friction rub. No murmur heard. Symmetric radial artery pulses Pulmonary/Chest: Effort normal. No stridor. No respiratory distress. No wheezes. No rales. No rhonchi . No tenderness. Abdominal: Soft.No distension. No mass. No tenderness. No rebound. No guarding. Musculoskeletal: RUE: Normal range of motion. No tenderness. No deformity LUE: Normal range of motion. No tenderness. No deformity RLE: Normal range of motion. No edema. No tenderness. No deformity LLE: Normal range of motion. No edema. No tenderness. No deformity Neurological: Alert and oriented to person, place, and time. Normal strength. CN II-VII intact. No sensory deficit. GCS eye subscore is 4. GCS verbal subscore is 5. GCS motor subscore is 6. Normal coordination Skin: Skin is warm and dry. No rash noted. No pallor. Normal capillary refill. Psychiatric: Normal mood. Normal affect. Const: Vital Signs, click to edit/add: Vital Signs - 24 hr 11/13/23 07:15 Temperature 97.1 F L Pulse Rate [Left P ulse Oximeter] 93 Respiratory Rate 16 Blood Pressure [Le ft Upper Arm] 136/87 Pulse Oximetry 94 Oxygen Delivery Me thod Room Air Course Course ED Course: Patient's labs came back showing therapeutic INR. Discussed with cardiology from [facility], Dr. Rosales. He agrees with the plans to cardiovert this morning and if successful discharge home. He will arrange outpatient follow-up with the [facility] and EP clinic. For now stay on the patient is a medications metoprolol, lisinopril, warfarin. Reevaluation(s) Reevaluation #1: We were able to contact [employer]. They came to the ER to help administer some sedation medications and monitor the patient for procedural sedation. See their notes for procedural sedation. We performed synchronized electrical cardioversion for his atrial flutter Procedure: Electrical cardioversion Indication-atrial flutter-symptomatic. Verbal and written consent were obtained from the patient prior to the procedure. Discussed risks and benefits, alternatives. After appropriate anesthesia was induced by [employer] procedure was performed Defibrillator pads were placed in the anterior-posterior position. Positioning and fit was checked by me. We charge the defibrillator to 120 joules. It was synchronized. A single 120 joule shock was administered. Patient had anglican of sinus rhythm. He converted from atrial flutter with 2:1 conduction to sinus bradycardia with occasional PVCs. He awoke from the sedation without complication. He was feeling better after cardioversion. Vital Signs Vital signs: Initial Vital Signs Temperature 97.1 F L 11/13/23 07:15 Temperature Source Temporal Artery Scan 11/13/23 07:15 Pulse Rate 93 11/13/23 07:15 Pulse Rhythm Regular 11/13/23 07:15 Pulse Strength 3+ Normal 11/13/23 07:15 Respiratory Rate 16 11/13/23 07:15 Blood Pressure 136/87 11/13/23 07:15 Blood Pressure Mean 103 11/13/23 07:15 Blood Pressure Position Semi-Fowlers 11/13/23 07:15 Pulse Oximetry 94 11/13/23 07:15 Oxygen Delivery Method Room Air 11/13/23 07:15 Vital Signs Temperature 97.1 F L 11/13/23 07:15 Pulse Rate 93 11/13/23 07:15 Respiratory Rate 16 11/13/23 07:15 Blood Pressure 136/87 11/13/23 07:15 Pulse Oximetry 94 11/13/23 07:15 Oxygen Delivery Method Room Air 11/13/23 07:15 Temperature 97.1 F L 11/13/23 07:15 Pulse Rate 93 11/13/23 07:15 Respiratory Rate 16 11/13/23 07:15 Blood Pressure 136/87 11/13/23 07:15 Pulse Oximetry 94 11/13/23 07:15 Oxygen Delivery Method Room Air 11/13/23 07:15 Medications Administered Medications: Discontinued Medications Generic Name Dose Route Start Last Admin Trade Name Freq PRN Reason Stop Dose Admin Sodium Chloride 1,000 mls @ 1,000 mls/hr 11/13/23 08:34 11/13/23 08:42 0.9 % Sodium Chloride 1000 Ml IV 11/13/23 09:33 1,000 mls/hr .Q1H PREM Administration Medical Decision Making MDM Narrative Medical decision making narrative: This patent presents for evaluation of palpitations. He has a history of paroxysmal AFib in his had this for many years. He is on metoprolol for rate control and warfarin for stroke prophylaxis. Recent INRs have been therapeutic an INR this morning is[]. Time of onset is a little bit unclear but he definitely had it yesterday morning because his heart rate was elevated in the 90s on his monitor, typical rate is in the 50s. Probably started overnight Friday night into Friday. EKG does not show AFib this morning but actually shows atrial flutter with 2:1 conduction. Heart rate is a bit low for 2:1 a flutter (would expect 150) but I suspect this is is slower than normal because he is beta blocked.. Since he does have chronic paroxysmal AFib and is therapeutically anticoagulated on warfarin, I think it is reasonable to proceed with cardioversion. He is a good historian and after obtaining informed consent, electrical cardioversion was successful in converting rhythm back to normal sinus. I doubt acute coronary syndrome, thyroid issues, PE, dissection, drug ingestion, acute electrolyte imbalance, etc. Labs reassuring. Repeat EKG looks excellent. Asymptomatic after cardioversion now and would not hospitalize. Discussed with patient and the patient is in agreement. Discussed post sedation is restrictions and precautions. He will follow-up outpatient with [facility]. Will not change medication at this point as already quite beta-blocked and would not increase. Should see cardiology for recheck. [facility] will reach out to the patient to schedule that appointment. Lab Data Labs: Lab Results 11/13/23 11/13/23 11/13/23 Range/Units 07:30 07:47 08:34 WBC 7.04 (4.50-11.00) K/uL RBC 4.82 (4.30-5.90) m/uL Hgb 15.3 (13.5-17.5) gm/dL Hct 46.1 (37.0-53.0) % MCV 96 (80-100) fL MCH 32 (26-34) pg MCHC 33 (32-36) gm/dL RDW Coeff of Toy 11.9 (11.5-15.5) % Plt Count 252 (140-440) K/uL Neut % (Auto) 54.8 (42.0-72.0) % Lymph % (Auto) 28.7 (20-44) % [place] % (Auto) 10.8 (0.0-11.0) % Eos % (Auto) 4.8 (0.0-7.0) % Baso % (Auto) 0.6 (0.0-3.0) % Neut # (Auto) 3.86 (1.7-7.0) K/uL Lymph # (Auto) 2.02 (0.90-2.90) K/uL [place] # (Auto) 0.80 (0.00-0.90) K/UL Eos # (Auto) 0.34 (0.00-0.50) K/uL Baso # (Auto) 0.04 (0.00-0.30) K/uL Abs Immat Gran (auto) 0.02 (0.00-0.30) K/uL Imm/Tot Granulo (auto) 0.3 % INR 2.00 H (0.91-1.10) Sodium 137 (135-149) mmol/L Potassium 3.8 (3.6-5.1) mmol/L Chloride 103 (96-114) mmol/L Carbon Dioxide 23 (20-32) mmol/L Anion Gap 11 (7-15) mEq/L BUN 16 (7-30) mg/dL Creatinine 0.8 (0.5-1.5) mg/dL Estimated Creat Clear 56.00 Estimated GFR 90 ml/min Glucose 140 H (60-115) mg/dL Calcium 9.2 (8.4-10.6) mg/dL POC Troponin I 0.01 (0.01-0.04) ng/ml Discharge Plan Discharge Clinical Impression: Atrial flutter Patient Disposition: Home, Self-Care Condition: Stable Instructions: Atrial Flutter (DC) Additional Instructions: As we discussed, come back to the ER right away if you have any problems such as more palpitations, dizzy spells, chest pain, trouble breathing. For today be careful. Light activities are okay but avoid strenuous physical activity. Do not drive or operate power tools because the sedation medications may make you a little bit drowsy and slow your reflexes. You should receive a phone call from the [facility] to arrange a follow-up appointment. If you do not hear from them by tomorrow, call your summer babysitter to arrange a follow-up appointment. Continue on your current medications including warfarin and metoprolol at their current doses. Prescriptions: No Action metoprolol succinate 100 mg tablet extended release 24 hr 100 mg PO BID aspirin 81 mg capsule 81 mg PO DAILY triamterene-hydrochlorothiazid .ROUTE lisinopril 5 mg tablet 5 mg PO DAILY warfarin 4 mg tablet 4 mg PO DAILY Follow Up/Referrals: Junior Woods MD [Primary Care Provider] - Stand Alone Forms: [employer] Info Instructions
[2023-11-13 08:19] VITALS: O2SAT 99
[2023-11-13 08:27] LABS: Basophils Absolute Auto 0.04 K/uL (0.00-0.30); Basophils Percent Auto 0.6 % (0.0-3.0); Eosinophils Absolute Auto 0.34 K/uL (0.00-0.50); Eosinophils Percent Auto 4.8 % (0.0-7.0); Hematocrit 46.1 % (37.0-53.0); Hemoglobin* 15.3 gm/dL (13.5-17.5); Immature Granulocytes Abs Auto 0.02 K/uL (0.00-0.30); Immature Granulocytes Pct Auto 0.3 %; Lymphocytes Absolute Auto 2.02 K/uL (0.90-2.90); Lymphocytes Percent Auto 28.7 % (20-44); Mean Corpuscular HGB Conc 33 gm/dL (32-36); Mean Corpuscular Hemoglobin 32 pg (26-34); Mean Corpuscular Volume 96 fL (80-100); Monocytes Percent Auto 10.8 % (0.0-11.0); Neutrophils Absolute Auto 3.86 K/uL (1.7-7.0); Neutrophils Percent Auto 54.8 % (42.0-72.0); Platelet Count* 252 K/uL (140-440); RDW Coefficient of Variation % 11.9 % (11.5-15.5); Red Blood Count 4.82 m/uL (4.30-5.90); White Blood Count* 7.04 K/uL (4.50-11.00)
[2023-11-13 08:30] LABS: Slide Review Reflex No
[2023-11-13 08:40] LABS: Chloride* 103 mmol/L (96-114); Sodium* 137 mmol/L (135-149)
[2023-11-13 08:41] LABS: Potassium* 3.8 mmol/L (3.6-5.1)
[2023-11-13] MEDS: 0.9 % SODIUM CHLORIDE 1000 ml 1,000 ML IV (08:42)
[2023-11-13 08:43] LABS: Creatinine* 0.8 mg/dL (0.5-1.5); Estimated Glomerular Filt Rate 90 ml/min
[2023-11-13 08:44] LABS: Anion Gap 11 mEq/L (7-15); Blood Urea Nitrogen* 16 mg/dL (7-30); Calcium* 9.2 mg/dL (8.4-10.6); Carbon Dioxide* 23 mmol/L (20-32); Glucose* 140 mg/dL (60-115)
--- OUTSIDE RECORDS SUMMARY | 2023-11-13 08:48 | XMS_ITS | Encounter Summary ---
Author Name [facility] Organization [facility] Address [address] [place] [id number] Care Team Providers Care Chief Enterprise Architect Name Role Phone CATIE GAN Primary Care Provider Unavailabl e Insurance Providers: All historical and current Section Date Range: From patient's date of to the date document was created. This section includes the names of all active insurance providers for the patient. Insurance Provider Type of Coverage Plan Name Start of Policy Coverage End of Policy Coverage Group Number Member ID Insurance Provider's Telephone Number Policy Reyez's Name Patient's Relationship to Policy Reyez [employer] [facility] MEDICARE ADVANTAGE [facility] ([facility]) Mar 03, 2018 [id number] FLEX FRAGOSO PATIENT [facility] ([facility]) MEDICARE ADVANTAGE [facility] ([facility]) Mar 03, 2021 [id number] FLEX FRAGOSO PATIENT Selected Encounter This section includes the information on record at [place] for the Encounter. Date/Time Encounter Type Encounter Description Reason Provider Source Mar 11, 2023 09:00 AM OFFICE O/P EST MOD 30 MIN DERMATOLOGY ICD-10-CM D48.5 Neoplasm of uncertain behavior of skin DINORAH SCHWAB Encounter Template Text not used by [place] Assessments - Encounter Diagnoses This section includes the primary and secondary diagnoses documented for the Encounter. Date/Time Primary/Secondary Diagnosis Diagnosis Name Provider Source Mar 11, 2023 09:26 AM PRIMARY Neoplasm of uncertain behavior of skin DYLON MCCRAY [facility] Mar 11, 2023 09:26 AM SECONDARY Personal history of other malignant neoplasm of skin SHAZIADEBORAS MIRANDA Mikki [facility] Plan of Treatment: Future Appointments (+ 6 months) and Future Tests (+/- 45 days) The Plan of Treatment section includes future care activities for the patient from all [place] treatmentfacilities. This section includes future appointments and future orders which are active, pending or scheduled. Future Appointments This section includes appointments that were scheduled to occur 6 months from the date of the Encounter, up to a maximum of 20 appointments. The data comes from all [place] treatment facilities. Appointment Date/Time Appointment Type Appointme nt Facility Name May 06, 2023 08:00 AM AMB[facility]ATORY - NONE [place] [facility] Jun 03, 2023 08:15 AM AMBULATORY - NONE [place] [facility] Jun 03, 2023 08:30 AM AMBULATORY - NONE [place] [facility] Jun 09, 2023 01:30 PM AMBULATORY [place] SURGERY [place] [facility] July 22, 2023 08:15 AM AMBULATORY - NONE [place] [facility] Aug 15, 2023 08:00 AM AMBULATORY - SURGERY [place] [facility] Aug 27, 2023 08:00 AM AMBUL[place]ORY [place]ICINE [place] [facility] Aug 27, 2023 08:45 AM AMBULATORY - NONE [place] [facility] Aug 27, 2023 09:00 AM AM[facility]ORY - NONE [facility] Lab Results: +/- 30 days of the encounter This section includes the Chemistry and Hematology Lab Results on record with [place] for the patient. Radiology Reports and Pathology Reports are provided separately, in subsequent sections. Lab Results This section contains the Chemistry/Hematology Results that were resulted 30 days before or 30 daysafter the date of the Encounter. Date/Time Source Result Type Result - Unit Interpretation Reference Range Comment Mar 11, 2023 07:48 AM [facility] POC INR(COAGUCHEK) Specimen Type: BLOOD No comment entered. Ordering Provider: GUY LINDSAY Report Released Date/Time: Mar 11, 2023 07:51 AM Reporting Lab: [facility] [id number] Performing Lab: [facility] [id number] POC INR(COAGU CHEK) 2.5 {INR} H 0.8-1.1 Social History: Smoking Status (Most current) and Tobacco Use (All prior to encounter date) This section includes the most current, and the historical, smoking and tobacco- related health factors from the [place] facility where the Encounter took place. Current Smoking Status This section includes the most current smoking, or tobacco-related health factor, from the [place] facility where the Encounter took place. Date/Time Current Smoking Status Comment Facil ity May 09, 2022 08:45 AM VA-TOBACCO FORMER USER [facility] Tobacco Use History This section includes a history of the smoking, or tobacco-related health factors, that were collected on or before the date of the Encounter. The data comes from the [place] facility where the Encounter took place. Date/Time Smoking Status/Tobacco Use Comment F acility May 09, 2022 08:45 AM VA-TOBACCO QUIT 15 YRS OR MORE [facility] May 30, 2021 08:15 AM VA-TOBACCO FORMER USER [facility] May 30, 2021 08:15 AM VA-TOBACCO QUIT 15 YRS OR MORE [facility] May 29, 2020 08:30 AM VA-TOBACCO FORMER USER [facility] May 29, 2020 08:30 AM VA-TOBACCO QUIT 15 YRS OR MORE [facility] Feb 09, 2019 09:07 AM VA-TOBACCO FORMER USER [facility] Feb 09, 2019 09:07 AM VA-TOBACCO QUIT 15 YRS OR MORE [facility] Apr 22, 2018 10:04 AM VA-TOBACCO FORMER USER [facility] Apr 22, 2018 10:04 AM VA-TOBACCO QUIT 15 YRS OR MORE [facility] Apr 02, 2017 09:41 AM FORMER TOBACCO USER 7Y OR GREATE R [facility] Apr 02, 2016 02:38 PM FORMER TOBACCO USER 7Y OR GREATE R [facility] Apr 26, 2015 08:09 AM FORMER TOBACCO USER 7Y OR GREATE R [facility] May 17, 2014 08:12 AM FORMER TOBACCO USER 7Y OR GREATE R [facility] Sep 11, 2010 12:27 PM FORMER TOBACCO USER 7Y OR GREATE R [facility] Pathology Reports: +/- 30 days of the encounter Pathology Reports For cases when an order for pathology services may have been completed prior to the date of the Encounter, the report list includes the Pathology Reports that were completed up to 30 days before dateof the Encounter. For cases when an order for pathology services may have been completed after the date of the Encounter, the report list also includes the Pathology Reports that were completed up to30 days after date of the Encounter. The data comes from all [place] treatment facilities. Date/Time Pathology Report Provider Source Mar 14, 2023 01:07 PM LR SURGICAL PATHOL OGY REPORT: LOCAL TITLE: LR SURGICAL PATHOLOGY REPORT STANDARD TITLE: PATHOLOGY REPORT DATE OF NOTE: MAR 14, 2023@13:07:51 ENTRY DATE: MAR 14, 2023@13:07:51 AUTHOR: KASI MÉNDEZ EXP COSIGNER: URGENCY: STATUS: COMPLETED $APHDR Reporting Lab: [facility] [CLIA# [id number]] [place] [address] - - - - - - - - - - - - - - - - - - - - - - - - - - - - - - - - - - - - - - - - MEDICAL RECORD SURGICAL PATHOLOGY - - - - - - - - - - - - - - - - - - - - - - - - - - - - - - - - - - - - - - - - PATHOLOGY REPORT Accession No. [id number] - - - - - - - - - - - - - - - - - - - - - - - - - - - - - - - - - - - - - - - - $TEXT Submitted by: DIONNE MCCRAY Date obtained: Mar 11, 2023 - - - - - - - - - - - - - - - - - - - - - - - - - - - - - - - - - - - - - - - - Specimen (Received Mar 11, 2023 13:22): RIGHT DENOMINATIONAL - - - - - - - - - - - - - - - - - - - - - - - - - - - - - - - - - - - - - - - - BRIEF CLINICAL HISTORY: Pearly papule with telangiectasias Procedure: Shave - - - - - - - - - - - - - - - - - - - - - - - - - - - - - - - - - - - - - - - - PREOPERATIVE DIAGNOSIS: BCC vs vikash hyperplasia - - - - - - - - - - - - - - - - - - - - - - - - - - - - - - - - - - - - - - - - OPERATIVE FINDINGS: - - - - - - - - - - - - - - - - - - - - - - - - - - - - - - - - - - - - - - - - POSTOPERATIVE DIAGNOSIS: Surgeon/physician: DIONNE MCCRAY =-=-=-=-=-=-=-=-=-=-=-=-=- =-=-=-=-=-=-=-=-=-=-=-=-=- =-=-=-=-=-=-=-=-=-=-=-=-=- = - - - - - - - - - - - - - - - - - - - - - - - - - - - - - - - - - - - - - - - - PATHOLOGY REPORT Accession No. [id number] - - - - - - - - - - - - - - - - - - - - - - - - - - - - - - - - - - - - - - - - GROSS DESCRIPTION: The requisition form and specimen identification is confirmed. The specimen is labeled right hinduism and consists of two shave biopsies of indurated abbott skin measuring 0.5 X 0.5 X 0.1 cm and 0.7 X 0.5 X 0.1 cm. Both tissue fragments are inked. ce (D) SMcCoy/er MICROSCOPIC DESCRIPTION: Microscopic examination performed. This case was seen in consultation by Dr. Maverick Medina, dermatopathologist. RS. DIAGNOSIS: Skin, right hinduism, shave biopsy-- - Nodular and infiltrative basal cell carcinoma - Deep and peripheral margins involved /es/ KASI MÉNDEZ STAFF PATHOLOGIST, PATHOLOGY & LABORATORY [facility] [place] Signed Mar 14, 2023@13:07 Performing Laboratory: Surgical Pathology Report Performed By: [facility] [CLIA# [id number]] [place] [address] $FTR - - - - - - - - - - - - - - - - - - - - - - - - - - - - - - - - - - - - - - - - (End of report) KASI ellis Date Mar 14, 2023 - - - - - - - - - - - - - - - - - - - - - - - - - - - - - - - - - - - - - - - - CECI FRAGOSO STANDARD FORM 515 ID:[id number] SEX:M :[id number] AGE: 77 LOC:[id number] PCP: AXEL Young /bryant/ KASI MÉNDEZ STAFF PATHOLOGIST, PATHOLOGY & LABORATORY [facility] [place] Signed: 03/14/2023 13:07 KASI MÉNDEZ [facility] Encounter Notes: All associated encounter notes This section contains the clinical notes associated to the Encounter. 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 This case was seen in consultation by Dr. Maverick Medina, dermatopathologist. RS. DIAGNOSIS: Skin, right hinduism, shave biopsy-- - Nodular and infiltrative basal cell carcinoma - Deep and peripheral margins involved S: Otherwise feeling well and biopsy site healing well. A/P: Informed patient of results above. Patient will be referred for Mohs at [facility]. Procedure explained to patient. Will await call for scheduling MMS. Clinically indicated date 12 W Total encounter time: 15 min Staff: Dr. Hernandez /bryant/ DIONNE MCCRAY DO RESIDENT, DERM Signed: 03/18/2023 11:40 Receipt Acknowledged By: 04/29/2023 09:42 /bryant/ NARESH HERNANDEZ MD [facility]AIN JERK 03/19/2023 ADDENDUM STATUS: COMPLETED I have attempted to reach the pateinet to schedule his MOHS appt no answer. I left with my name and phone number. /bryant/ ASIA ORTEGA state director Nurse Surgery Coordinator Signed: 03/19/2023 11:07 04/29/2023 ADDENDUM STATUS: COMPLETED I discussed the patient with the resident, reviewed any available photos and agree with the assessment and plan as written in the resident's note. /bryant/ NARESH HERNANDEZ MD [facility] [employer] Signed: 04/29/2023 09:42 DIONNE MCCRAY [facility] Mar 11, 2023 10:22 AM DERMATOLOGY NURSIN G OUTPATIENT NOTE: LOCAL TITLE: DERMATOLOGY CLINIC NURSING NOTE STANDARD TITLE: DERMATOLOGY NURSING OUTPATIENT NOTE DATE OF NOTE: MAR 11, 2023@10:22 ENTRY DATE: MAR 11, 2023@10:22:21 AUTHOR: SRAVANTHI COLEMAN COSIGNER: URGENCY: STATUS: COMPLETED Dermatology Clinic Nursing Note Post Procedure Nursing Note vaseline, band-aid applied to biopsy site on the right scalp. This bandage should be kept clean and dry for 1 days. After 1 days the bandage can be removed and the biopsy site should be gently cleaned once per day with a damp washcloth, patted dry, then covered with vaseline and a bandage. Daily cleaning and dressing changes should be done until skin is fully healed. No other products should be used on the biopsy site i.e., hydrogen peroxide, rubbing alcohol, skin oils, creams, prescriptions until the area is completely healed. Educational Screening: Barriers to Learning/Special Needs: No Barriers Identified Preferred Style of Learning: No preference stated Teaching Strategy: 1:1 Written/printed material Instruction: Patient/family/caregiver instructed in standard Post-Biopsy and Cryotherapy wound care. Printed instruction sheet provided for home reference: Skin Biopsy Patient Instruction, Care After Freezing with Liquid Nitrogen Understanding: Patient/family/caregiver: Able to verbalize understanding. 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 - Patient reports that he has a spot on his right hinduism that he has noticed, referred from [facility] - Personal history of skin cancer: as above - Family history of skin cancer: no history of melanoma - Denies other lesions that are tender, non-healing or bleeding. - Dermatitis has improved after triamcinolone, no concerns on this at this time - No other spots or areas of concern OBJECTIVE: GEN: A&O x3. No acute distress. SKIN: UBSE of the head, neck, chest, abdomen, back, bilateral upper extremities, and hands was performed and notable for the following significant findings: - small linear pigemented lesion to the glabella, pigement network regular 2-3 mm - pearly papule ~ 4 mm in diameter with arborizing vessels and heaped borders present, no umbilication noted - On the trunk and extremities, there are scattered flesh-colored to brown, waxy, stuck-on papules and plaques - On the trunk and extremities with accentuation in sun-exposed areas, there are light brown macules with uniform appearance - On the trunk and extremities, there are scattered medium brown macules with uniform pigment networkds under dermoscopy - On trunk and extremities, there are scattered bright red papules. - Previous sites of skin cancer noted above were examined. No evidence for recurrence by inspection or palpation ASSESSMENT & PLAN: # NUB, right hinduism, s/p shave 03/11/2023 - ddx: bcc vs vikash hyperplasia # History of NMSC. - No evidence of recurrence on exam today. # iSK, right popliteal fossa - LN2 as below # Benign skin findings - Seborrheic keratoses - Solar lentigines - Sethi hemangiomas - Clinically benign melanocytic nevi - Reassured of benign etiology - ABCDEs of melanoma discussed - Encouraged sunscreen and sun protective behaviors PROCEDURES CRYOTHERAPY PROCEDURE NOTE: iSK on right popliteal fossa On the, 1 lesion(s) treated with 1-2 freeze-thaw cycles of liquid nitrogen cryotherapy. Counseled that lesions will become red, may blister, and then heal in 1-2 weeks. Risks including recurrence and scarring were dicussed. Patient endorsed understanding. SHAVE BIOPSY PRODEDURE NOTE: right hinduism A time-out was taken prior to the procedure to verify correct patient, correct site(s) and correct procedure. After verifying patients identification and obtaining verbal informed consent, including discussions of the risks of bleeding, infection, and scarring, the lesion(s) was cleansed with an alcohol swab then injected with 1% lidocaine with epinephrine. A Berenice blade and/or Dermablade was used to shave the lesion(s). Specimen(s) was labeled and sent to pathology in formalin. Aluminum chloride was applied for chemical cauterization. Petrolatum and bandaid were applied to the biopsy site(s). Post- biopsy wound care was discussed in detail. RTC [address] Schwab saw and evaluated the patient with me, and agrees with the findings, assessment and plan as outlined. /bryant/ DIONNE MCCRAY DO RESIDENT, DERM Signed: 03/11/2023 09:36 Receipt Acknowledged By: 03/22/2023 18:56 /po SCHWAB MD INTERNAL MEDICINE/DERMATOLOGY STAFF 03/22/2023 ADDENDUM STATUS: COMPLETED I saw and evaluated the patient. I reviewed the resident's note and agree. I was physically present during the granados portions of the procedure and available during the entire procedure as the attending surgeon, providing medically necessary supervision, and ready to perform any service required as the surgeon. /po SCHWAB MD INTERNAL MEDICINE/DERMATOLOGY STAFF Signed: 03/22/2023 18:56 DOINNE MCCRAY [facility]
--- OUTSIDE RECORDS SUMMARY | 2023-11-13 08:48 | XMS_ITS | Encounter Summary ---
Author Name [facility] [place] [place] Organization [facility] [place] [facility] [place] Address [address] [place] [address] Care Team Providers Care Heating Unit Mechanic Name Role Phone CATIE GAN Primary Care [...] Name Patient's Relationship to Policy Reyez HUMANA [facility] ([facility]) MEDICARE ADVANTAGE [facility] ([facility]) Mar 03, 2018 [id number] FLEX BETHEA IP PATIENT [facility] ([facility]) MEDICARE ADVANTAGE [facility] ([facility]) Mar 03, 2021 [id number] FLEX BETHEA PATIENT Selected Encounter This section includes the information on record at [place] for the Encounter. Date/Time Encounter Type Encounter Description Reason Provider Source Jan 14, 2023 08:45 AM OFFICE O/P EST LOW 20-29 MIN PRIMARY CARE/MEDICINE ICD-10-CM I10 Essential (primary) hypertension ERIC JESUS Maria Esther Encounter Template Text not used by [place] Assessments - Encounter Diagnoses This section includes the primary and secondary diagnoses documented for the Encounter. Date/Time Primary/Secondary Diagnosis Diagnosis Name Provider Source Jan 19, 2023 04:06 PM PRIMARY Essential (primary) hypertension ERIC JESUS [facility] Jan 19, 2023 04:06 PM SECONDARY Carcinoma in situ of skin of other sites ERIC JESUS [facility] Jan 19, 2023 04:06 PM SECONDARY Encounter for immunization LYNNE WILSON [facility] Jan 19, 2023 04:06 PM SECONDARY Hyperlipidemia, unspecified ERIC JESUS [facility] Jan 19, 2023 04:06 PM SECONDARY Nummular dermatitis ERIC JESUS [facility] Jan 19, 2023 04:06 PM SECONDARY Obstructive sleep apnea (adult) (pediatric) ERIC JESUS [facility] Jan 19, 2023 04:06 PM SECONDARY Paroxysmal atrial fibrillation ERIC JESUS [facility] Jan 19, 2023 04:06 PM SECONDARY Type 2 diabetes mellitus without complications ERIC JESUS [facility] Plan of Treatment: Future Appointments (+ 6 months) and Future Tests (+/- 45 days) The Plan of Treatment section includes future care activities for the patient from all [place] [facility]. This section includes future appointments and future orders which are active, pending or scheduled. Future Appointments This section includes appointments that were scheduled to occur 6 months from the date of the Encounter, up to a maximum of 20 appointments. The data comes from all [facility] facilities. Appointment Date/Time Appointment Type Appointme nt Facility Name Mar 11, 2023 08:00 AM AMBULATORY - NONE [facility] Mar 11, 2023 09:00 AM AMBULATORY - SURGERY [facility] May 06, 2023 08:00 AM AMBULATORY - NONE [facility] Jun 03, 2023 08:15 AM AMBULATORY NONE [facility] Jun 03, 2023 08:30 AM AMBULATORY - NONE [facility] Jun 09, 2023 01:30 PM AMBULATORY - SURGERY [facility] Lab Results: +/- 30 days of the encounter This section includes the Chemistry and Hematology Lab Results on record with [place] for the patient. Radiology Reports and Pathology Reports are provided separately, in subsequent sections. Lab Results This section contains the Chemistry/Hematology Results that were resulted 30 days before or 30 daysafter the date of the Encounter. Date/Time Source Result Type Result - Unit Interpretation Reference Range Comment Jan 14, 2023 07:42 AM [facility] POC INR([place]K) Specimen Type: BLOOD No comment entered. Ordering Provider: GUY LINDSAY Report Released Date/Time: Jan 14, 2023 07:47 AM Reporting Lab: [facility] [id number] Performing Lab: [facility] [id number] POC INR([place]K) 2.1 {INR} H Jan 14, 2023 07:40 AM [facility] HEMOGLOBIN A1C Specimen Type: BLOOD Comment: Values obtained from A1C measurements can vary. For typical A1C assays, a reported value of 7.0 could actually be between 6.7 and 7.3 if measured by a reference method. A reported value of 9.0 could actually be between 8.7 and 9.3. Ref: http://www.ng sp.org/CAPdat a.asp Ordering Provider: LAURA XIAO Report Released Date/Time: May 09, 2022 09:23 AM Reporting Lab: [facility] [id number] Performing Lab: [facility] [phone] HEMOGLOBIN A1C 6.2 H 4.0-6.0 Jan 14, 2023 07:40 AM [facility] COMPREHENSIVE METABOLIC PANEL+MG Specimen Type: PLASMA No comment entered. Ordering Provider: LAURA XIAO Report Released Date/Time: May 09, 2022 09:23 AM Reporting Lab: [facility] [id number] Performing Lab: [facility] [phone] CREATININE 0.8 mg/dL 0.7-1.2 UREA NITROGEN 11 mg/dL 8-26 GLUCOSE 131 mg/dL H 70-100 SODIUM 136 mmol/L 136-145 POTASSIUM 4.1 mmol/L 3.5-5.1 CHLORIDE 101 mmol/L 98-107 CO2 26 mmol/L 22-29 CALCIUM 9.3 mg/dL 8.4-10.2 PROTEIN,TOTAL 7.2 g/dL 6.0-8.3 ALBUMIN 4.4 g/dL 3.5-5.2 BILIRUBIN, TOTAL 0.7 mg/dL 0.2-1.2 MAGNESIUM 2.1 mg/dL 1.6-2.6 ANION GAP 9 mmol/L 5-15 ALKALINE PHOSPHATASE 47 U/L 40-150 ALT/SGPT 41 U/L <55 AST/SGOT 31 U/L <34 .CREAT EGFR(CKD-EPI) >90 >60 Vital Signs: All taken on the encounter date This section contains inpatient and outpatient Vital Signs collected on the date of the Encounter. Date/Time Temperature Pulse Blood Pressure Respiratory Rate SP02 Pain Height Weight Body Mass Index Source Jan 14, 2023 08:40 AM 98.4 F 50 /min 148/65 mm[Hg] 18 /min 95 % 0 198 lb 31 [place] [facility] Immunizations: All administered on the encounter date This section contains immunizations associated to the Encounter. Immunization Series Date Issued Reaction Comments COVID-19 (PFIZER), MRNA, LNP -S, PF, [place]-SUCROSE, 30 MCG/0.3 ML (AGES 12+ YEARS) 1 Jan 14, 2023 INFLUENZA, HIGH-DOSE, QUADRIVALENT Jan 14, 2023 Social History: Smoking Status (Most current) and Tobacco Use (All prior to encounter date) This section includes the most current, and the historical, smoking and tobacco- related health factors from the [place] facility where the Encounter took place. Current Smoking Status This section includes the most current smoking, or tobacco-related health factor, from the [place] facility where the Encounter took place. Date/Time Current Smoking Status Comment Facil ity May 09, 2022 08:45 AM VA-TOBACCO FORMER USER [facility] Tobacco Use History This section includes a history of the smoking, or tobacco-related health factors, that were collected on or before the date of the Encounter. The data comes from the [place] facility where the Encounter took place. Date/Time Smoking Status/Tobacco Use Comment F acility May 09, 2022 08:45 AM VA-TOBACCO QUIT 15 YRS OR MORE [facility] May 30, 2021 08:15 AM VA-TOBACCO FORMER USER [facility] May 30, 2021 08:15 AM VA-TOBACCO QUIT 15 YRS OR MORE [facility] May 29, 2020 08:30 AM VA-TOBACCO FORMER USER [facility] May 29, 2020 08:30 AM VA-TOBACCO QUIT 15 YRS OR MORE [facility] Feb 09, 2019 09:07 AM VA-TOBACCO FORMER USER [facility] Feb 09, 2019 09:07 AM VA-TOBACCO QUIT 15 YRS OR MORE [facility] Apr 22, 2018 10:04 AM VA-TOBACCO FORMER USER [facility] Apr 22, 2018 10:04 AM VA-TOBACCO QUIT 15 YRS OR MORE [facility] Apr 02, 2017 09:41 AM FORMER TOBACCO USER 7Y OR GREATE R [facility] Apr 02, 2016 02:38 PM FORMER TOBACCO USER 7Y OR MELVINE R [facility] Apr 26, 2015 08:09 AM FORMER TOBACCO USER 7Y OR COLETTE R [facility] May 17, 2014 08:12 AM FORMER TOBACCO USER 7Y OR COLETTE R [facility] Sep 11, 2010 12:27 PM FORMER TOBACCO USER 7Y OR COLETTE R [facility] Encounter Notes: All associated encounter notes This section contains the clinical notes associated to the Encounter. Date/Time Encounter Note(s) Provider Source Jan 14, 2023 08:56 AM INTERNAL MEDICINE NOTE: LOCAL TITLE: MEDICINE CLINIC NOTE STANDARD TITLE: INTERNAL MEDICINE NOTE DATE OF NOTE: JAN 14, 2023@08:56 ENTRY DATE: JAN 14, 2023@08:57 AUTHOR: ERIC JESUSIGNER: URGENCY: STATUS: COMPLETED Nurse's Notes Reviewed. Chief Complaint: 6 month f/u (PACT DIMITRI) HPI: Ceci Bethea is a 77 year old male with hypertension, hyperlipidemia, PFO (S/P repair 2000), sleep apnea, Paroxysmal atrial fibrillation, diabetes type II, CVA 2000, who presents for 6 month co-managed care visit; followd via [facility]. Episode of atrial flutter and underwent a cardioversion 03/19/2022. f/u appt w/community [facility] in August, and interim visit w/community PCP for UTI. Today he concerned about a lesion on his L adventism that was previously treated w/LN and then returned. Hx of both SCC and BCC. He does not recall Derm f/u for previously dx skin cancers. In addition, rash on neck - scattered erythematous, pruritic macules. He also c/o coughing up clear phlegm w/clear rhinorrhea every day for 2-3 days. Home SBPs 120s-130s, takes lisinopril in evening, due to increased BP in the evening. Dental hygiene 4x/year, RX for amoxicillin prior. Liver enzymes previously elevated (mild), now normalized. Past medical history/Active Problems: Active Problems: Active problems - Computerized Problem List is the source for the followin. Hearing loss (SNOMED CT 71336084) - Total loss leftear( [place] did not rec cochlear implant - Hearing aid - right ear. 2. Insomnia (SNOMED CT 701346743) 3. Hypertension 4. PATENT FORAMEN OVALE - Repair through sternotomy 2000- [facility] 5. Long-term current use of anticoagulant (SNOMED CT 924582375) 6. History of malignant neoplasm of skin - H/O of SCCA and BCCA. 7. Hyperlipidemia 8. Obstructive sleep apnea 9. Paroxysmal atrial fibrillation 10. co-mgd - [facility] Dr. Jimenez 11. History of colonoscopy - 2013 Cscope w/diverticuli o/w nl, [facility]. F/u rec 10yr 12. Diabetes mellitus 13. History of cerebrovascular accident - Cerebellar infarct 07/17/2000 14. Ex-smoker - 30pack yr. Quit 15. Aortic root dilatation - 2014 echo ([facility]) aortic root 4.3cm; ascending aorta 3.9cm - TTE 10/2018: EF 61%, ascending aorta 4.0cm, arch 3.0cm Tobacco/ETOH Use: former pipe smoker Physical Exam: VS: Temp: 98.4 F [36.9 C] (01/14/2023 08:40) BP: 148/65 (01/14/2023 08:40) Pulse:50 (01/14/2023 08:40) Resp: 18 (01/14/2023 08:40) Weight: 198 lb [89.81 kg] (01/14/2023 08:40) Pain: 0 (01/14/2023 08:40) O2 Sat: 95% (01/14/2023 08:40) BMI: 31.1 General: alert and oriented, normal unassisted gait without focal deficit, NAD HEENT: PERRL EOMI Cardiac: RRR with normal S1 and S2; + murmur, gallop, rub. Chest/Lungs: Bilaterally clear, Clear to auscultation Abdominal: Soft, Non-Tender, Non-Distended, Bowel Sounds Present Extremities: trace edema Assessment/Plan: # hypertension: BP mildly elevated today, home BPs at goal on lisinopril, HCTZ/triamterene, Metoprolol. Lytes/renal function WNL, check annually # Hyperlipidemia: at goal on Pravastatin # Paroxysmal afib/PFO closure 2000, continues with Warfarin. Following with [facility]. S/P recent cardioversion for atrial flutter (symptomatic) # Murmur, following with cardiology through [facility]. Recent echocardiogram completed 05/2021. # Sleep apnea: adherent w/APAP # Diabetes type II, HgbA1c 6.2, stable. Diet controlled at this time. # lesion on R adventism: previously treated w/LN, recurrent, concern for BCC vs. SCC - Tele-Derm consult # scattered lesions on neck: appearance of numular eczema - RX triamcinolone ointment, Tele-Derm consult for confirmation # Elevated liver enzymes: resolved RTC in 1 year w/labs (co-managed) sooner prn More than 50% of this 30 min appt was spent counseling/coordinating care for the medical problems outlined above. Medication Reconciliation: Education Evaluations *Was medication education provided for NEW medications or CHANGES to medications? (including medication name, dose, route, reason for use, and potential side effects). Yes. Verbal education was provided to patient/caregiver and patient/caregiver verbalized understanding. Additional Comment: triamcinolone No new medications or medication changes during this encounter. TERATOGENIC MED & CONTRACEPTION REVIEW (Optional)... ======= MEDICATION RECONCILIATION ======= Review Done: The medication list shown below was verified for accuracy and it includes all pending medications/active medications/all medications or discontinued within the last 90 days/all remote medications and non-VA medications. If a given category (i.e. remote meds) is not shown, that means that a patient doesn't have a medication(s) in that category. Allergies listed below were also reviewed/updated for accuracy. Allergies/ADR from [employer] may not display in CPRS. Use JLV MRT5 - Allergies/ADRs FACILITY ALLERGY/ADR -------- No Remote Allergy/ADR Data available for this patient [facility] No Known Allergies Active and Recently Outpatient Medications (including Supplies): Issue Date Status Last Fill Active Outpatient Medications Refills Expiration 1) HCTZ 50/TRIAMTERENE 75MG TAB Qty: 90 ACTIVE Issu:03-11-22 for 90 days Sig: TAKE 1 TABLET BY Refills: 0 Last:12-28-22 MOUTH EVERY MORNING FOR BLOOD PRESSURE Expr:03-12-23 2) LISINOPRIL 10MG TAB Qty: 45 for 90 days ACTIVE Issu:11-11-22 Sig: TAKE ONE-HALF TABLET BY MOUTH Refills: 2 Last:12-28-22 EVERY DAY Expr:11-12-23 3) METOPROLOL TARTRATE 100MG TAB Qty: 180 ACTIVE Issu:03-11-22 for 90 days Sig: TAKE ONE TABLET BY Refills: 1 Last:09-27-22 MOUTH TWICE A DAY Expr:03-12-23 4) MULTIVITAMIN CAP/TAB Qty: 100 for 90 ACTIVE Issu:03-11-22 days Sig: TAKE 1 TABLET BY MOUTH Refills: 1 Last:10-29-22 EVERY MORNING Expr:03-12-23 5) PRAVASTATIN NA 80MG TAB Qty: 90 for 90 ACTIVE Issu:03-11-22 days Sig: TAKE ONE TABLET BY MOUTH Refills: 1 Last:11-14-22 DAILY FOR CHOLESTEROL Expr:03-12-23 6) PSYLLIUM SF ORAL PWD Qty: 300 for 20 ACTIVE Issu:06-25-22 days Sig: TAKE 1 TABLESPOONFUL BY Refills: 3 Last:12-19-22 MOUTH EVERY DAY MIXED IN JUICE OR Expr:06-26-23 WATER DIRECTED 7) WARFARIN NA ([place]) 5MG TAB Qty: ACTIVE Issu:03-12-22 50 for 90 days Sig: TAKE ONE-HALF Refills: 2 Last:08-18-22 TABLET BY MOUTH EVERY DAY OR Expr:03-13-23 DIRECTED BY [facility] TO TREAT AND/OR PREVENT BLOOD CLOTS 8) ZOLPIDEM TARTRATE 10MG TAB Qty: 30 for ACTIVE Issu:08-21-22 30 days Sig: TAKE ONE TABLET BY MOUTH Refills: 2 Last:08-21-22 AT BEDTIME FOR SLEEP. TAKE ON AN EMPTY Expr:02-21-23 STOMACH Issue Date Status Last Fill Inactive Outpatient Medications Refills Expiration 1) AMOXICILLIN 500MG CAP Qty: 4 for 10 Issu:12-17-21 days Sig: TAKE FOUR CAPSULES BY MOUTH Refills: 0 Last:08-18-22 DIRECTED ONE HOUR BEFORE PROCEDURE Expr:12-18-22 2) ASPIRIN 81MG EC TAB Qty: 120 for 90 Issu:12-12-21 days Sig: TAKE ONE TABLET BY MOUTH Refills: 0 Last:11-10-22 EVERY DAY Expr:12-13-22 3) LISINOPRIL 10MG TAB Qty: 45 for 90 days DISCONTINUED Issu:03-11-22 Sig: TAKE ONE-HALF TABLET BY MOUTH Refills: 0 Last:10-09-22 EVERY DAY Expr:03-12-23 Start Date Active Non-VA Medications Refills Expiration 1) Non-VA IBUPROFEN 200MG TAB SiMG ACTIVE MOUTH NEEDED 2) Non-VA ZINC GLUCONATE TAB Sig: ACTIVE 13 Total Medications /es/ ERIC JESUS APRN, FAST FOOD ATTENDANT NURSE PRACTITIONER Signed: 01/19/2023 16:06 ERIC JESUS [facility] Jan 14, 2023 08:42 AM INTERNAL MEDICINE OUTPATIENT NOTE: LOCAL TITLE: MEDICINE CLINIC NURSING NOTE STANDARD TITLE: INTERNAL MEDICINE OUTPATIENT NOTE DATE OF NOTE: JAN 14, 2023@08:42 ENTRY DATE: JAN 14, 2023@08:42:52 AUTHOR: LYNNE WILSON EXP COSIGNER: URGENCY: STATUS: COMPLETED MEDICINE CLINIC NURSING NOTE Has ADDENDA TYPE OF VISIT: Appointment Check In Type of appointment: In-person appointment REASON FOR VISIT: F/u 6 month ALLERGIES: Patient has answered NKA VITAL SIGNS: Blood Pressure: 148/65 (01/14/2023 08:40)re check 152/77 denies chest pain Pulse: 50 (01/14/2023 08:40) Respiration: 18 (01/14/2023 08:40) Temperature: 98.4 F [36.9 C] (01/14/2023 08:40) Weight: 198 lb [89.81 kg] (01/14/2023 08:40) Height: 67 in [170.2 cm] (05/09/2022 08:20) BMI: 31.1 O2 Sat: 95% (01/14/2023 08:40) Pain: 0 (01/14/2023 08:40) PAIN SCREEN: Patient is not having significant pain that they wish to discuss with their provider today. Alcohol Use Screen (AUDIT-C): Alcohol Screen: SCREEN FOR ALCOHOL (AUDIT-C) An alcohol screening test (AUDIT-C) was negative (score=4). 1. How often did you have a drink containing alcohol in the past year? Four or more times a week 2. How many drinks containing alcohol did you have on a typical day when you were drinking in the past year? One or two drinks 3. How often did you have six or more drinks on one occasion in the past year? Never Homelessness/Food Insecurity Screen: In the past 2 months, have you been living in stable housing that you own, rent, or stay in as part of a household? Yes - Living in stable housing. Are you worried or concerned that in the next 2 months you may NOT have stable housing that you own, rent, or stay in as part of a household? No - Not worried about housing near future The reports the following: Within the past 12 months, you worried whether your food would run out before you got money to buy more. Never true Within the past 12 months, the food you bought just didn't last and you didn't have money to get more. Never true Food Insecurity Resources Nursing Annual Screening: Fall History Screen During the past 12 months, have you had any falls? Patient does not report any falls in the past 12 months. MEDICATIONS: Patient is on one of the following medication classes: Antihypertensives, Antidepressants, Antipsychotics, Diuretics, or Controlled substance medication used for pain. FALL RISK ADVICE: Fall Risk Advice provided. Handout entitled Fall Prevention At Home reviewed and given to patient and/or significant other. Script Talk Screen Are you able to read your prescription bottles with your glasses, magnifiers or other aids? Yes or patient not taking any prescriptions. Skin Screen Patient reports any current pressure ulcers, a history of pressure ulcers, or a wound from a medical accountant or Patient is bed-confined or a wheelchair-user or Patient requires assistance to transfer/change position No, Skin Screen is Negative Home Abuse/Violence Screen Is your home free of abuse and violence? Yes MOVE! Program Screen Body Mass Index (BMI)= 31.1 [place]: Collection DT Specimen Test Name Result Units Ref Range 01/14/2023 07:40 BLOOD !! HEMOGLOBIN A1C 6.2 H % 4.0 - 6.0 !! Indicates COMMENTS AVAILABLE...Refer to Interim Lab Report. Ayan Brady Hgb A1C: No data available [place] Hgb A1C: No data available Point of Care Hgb A1C: POC HGB A1C____ Outpatient Nutrition Screen Body Mass Index (BMI)= 31.1 [place]: Collection DT Specimen Test Name Result Units Ref Range 01/14/2023 07:40 BLOOD !! HEMOGLOBIN A1C 6.2 H % 4.0 - 6.0 !! Indicates COMMENTS AVAILABLE...Refer to Interim Lab Report. Ayan [place] Hgb A1C: No data available [place] Hgb A1C: No data available Point of Care Hgb A1C: POC HGB A1C____ Is patient's BMI less than 18.5? No Does patient have swallowing, coughing, or chewing problems affecting oral intake? No Has patient experienced unplanned weight loss or gain greater than 10 pounds over the last 2 months? No Is patient's Hgb A1C (Glycosylated Hemoglobin) greater than 9.5? No Is patient receiving Total Parenteral Nutrition (TPN) or Tube Feedings? No Patient Health Education Screen BARRIERS/SPECIAL NEEDS: No barriers identified PREFERRED STYLE OF LEARNING: Listening Client Assistive Service (ELISABETH) Screen Does the patient require assistance with outpatient visit? Sade /bryant/ LYNNE WILSON LPN LPN Signed: 01/14/2023 08:46 01/14/2023 ADDENDUM STATUS: COMPLETED Influenza Immunization: The patient was given the influenza VIS which lists the benefits and side effects of the vaccine and which reviews the risks of not receiving the flu vaccine. The VIS was reviewed with the patient and they were given an opportunity to ask questions. The patient was provided education on how to decrease the risk of influenza infection including social distancing and use of good hand hygiene. The patient denied any prior severe reaction to the flu vaccine or its components. The patient gave verbal consent to receive the vaccine. Influenza, High Dose, Quadrivalent (Fluzone - syringe) Administered: INFLUENZA, HIGH-DOSE, QUADRIVALENT Date Administered: Jan 14, 2023 08:45 Card Grinder: [employer] PA[employer] Lot: [id number] Exp Date: Aug 31, 2023 [facility]: [phone] Admin Route/Site: INTRAMUSCULAR/RIGHT DELTOID Dosage: 0.7mL Vaccine Information Statement(s): INFLUENZA(FLU) VACC(INACTIVATED OR RECOMBINANT)VIS Oct 06, 2020 (VIET[place]ESE) Order By: Policy Administered By: Lynne Wilson COVID-19 Immunization: Pfizer Monovalent (Comirnaty) Vaccine information reviewed with the patient. The patient denied any prior severe reaction to this vaccine or its components or a severe allergic reaction such as anaphylaxis to any vaccine or to any injectable therapy. The patient gave verbal consent to receive vaccine. Administered: COVID-19 (PFIZER), MRNA, LNP-S, PF, [place]-SUCROSE, 30 MCG/0.3 ML (AGES 12+ YEARS) Date Administered: Jan 14, 2023 08:45 Series: Series 1 Card Grinder: [employer] Lot: [id number] Exp Date: Mar 02, 2023 [place]: [id number] Admin Route/Site: INTRAMUSCULAR/LEFT DELTOID Dosage: 0.3mL Vaccine Information Statement(s): COVID-19 MRNA VACCINE (12+ YRS) VACCINE VIS Dec 19, 2022 (VIET[place]ESE) Order By: Policy Administered By: Lynne Wilson Vaccine administered without complications. The patient was advised to remain in the facility for 15 minutes post vaccination. /bryant/ LYNNE WILSON LPN LPN Signed: 01/14/2023 08:49 LYNNE WILSON [facility]
--- OUTSIDE RECORDS SUMMARY | 2023-11-13 08:48 | XMS_ITS | Encounter Summary ---
Author Name [facility] [place] Organization [facility] [place] Address [address] [place] [id number] Care Team Providers Care Thread Cutter Tender Name Role Phone CATIE GAN Primary Care [...] Name Patient's Relationship to Policy Reyez HUMANA [facility] ([facility]) MEDICARE ADVANTAGE [facility] ([facility]) Mar 03, 2018 [id number] FLEX FRAGOSO PATIENT [facility] ([facility]) MEDICARE ADVANTAGE [facility] ([facility]) Mar 03, 2021 [id number] FLEX FRAGOSO PATIENT Selected Encounter This section includes the information on record at [place] for the Encounter. Date/Time Encounter Type Encounter Description Reason Provider Source Aug 15, 2023 08:00 AM OFFICE O/P EST MOD 30 MIN OPHTHALMOLOGY ICD-10-CM E11.9 Type 2 diabetes mellitus without complications ROBERT MORALES Maria Esther Encounter Template Text not used by [place] Assessments - Encounter Diagnoses This section includes the primary and secondary diagnoses documented for the Encounter. Date/Time Primary/Secondary Diagnosis Diagnosis Name Provider Source Aug 15, 2023 08:23 AM PRIMARY Type 2 diabetes mellitus without complications ROBERT MORALES [facility] Aug 15, 2023 08:23 AM SECONDARY Age-related nuclear cataract, left eye ROBERT MORALES [facility] Aug 15, 2023 08:23 AM SECONDARY Dermatochalasis of left upper eyelid ROBERT MORALES [facility] Aug 15, 2023 08:23 AM SECONDARY Dermatochalasis of right upper eyelid ROBERT MORALES [facility] Aug 15, 2023 08:23 AM SECONDARY Preglaucoma, unspecified, right eye ROBERT MORALES [facility] Aug 15, 2023 08:23 AM SECONDARY Presence of intraocular lens ROBERT MORALES [facility] Aug 15, 2023 08:23 AM SECONDARY Unspecified astigmatism, bilateral ROBERT MORALES [facility] Plan of Treatment: Future Appointments (+ 6 months) and Future Tests (+/- 45 days) The Plan of Treatment section includes future care activities for the [facility] [place] [facility] This section includes future appointments and future orders which are active, pending or scheduled. Future Appointments This section includes appointments that were scheduled to occur 6 months from the date of the Encounter, up to a maximum of 20 appointments. The data comes from all [place] treatment facilities. Appointment Date/Time Appointment Type Appointme nt Facility Name Aug 27, 2023 08:00 AM AMBULATORY - MEDICINE [facility] Aug 27, 2023 08:45 AM AMBULATORY - NONE [facility] Aug 27, 2023 09:00 AM AMBULATORY - NONE [facility] Oct 27, 2023 08:00 [facility] Dec 22, 2023 08:00 AM AMBULATORY - NONE [facility] Lab Results: +/- 30 days of the encounter This section includes the Chemistry and Hematology Lab Results on record with [place] for the patient. Radiology Reports and Pathology Reports are provided separately, in subsequent sections. Lab Results This section contains the Chemistry/Hematology Results that were resulted 30 days before or 30 daysafter the date of the Encounter. Date/Time Source Result Type Result - Unit Interpretation Reference Range Comment Aug 27, 2023 04:58 PM [facility] ALBUMIN/CREATININE RATIO URINE Specimen Type: URINE No comment entered. Ordering Provider: GUY LINDSAY Report Released Date/Time: Aug 27, 2023 08:33 AM Reporting Lab: [facility] [id number] Performing Lab: [facility] [id number] CREATININE,U R RANDOM 46.8 mg/dL L 58.0-161.0 ALB/CREAT RATIO,UR 16.9 mg/g{creat} <29.9 ALBUMIN,UR 7.9 mg/L <29.9 Aug 27, 2023 08:38 AM [facility] POC INR(COAGUCHEK) Specimen Type: BLOOD No comment entered. Ordering Provider: GUY LINDSAY Report Released Date/Time: Aug 27, 2023 08:41 AM Reporting Lab: [facility] [id number] Performing Lab: [facility] [id number] POC INR([place]AGUCHE K) 2.2 {INR} H 0.8-1.1 Aug 27, 2023 08:35 AM [facility] BASIC METABOLIC PANEL+MG Specimen Type: PLASMA No comment entered. Ordering Provider: GUY LINDSAY Report Released Date/Time: Aug 27, 2023 08:33 AM Reporting Lab: [facility] [id number] Performing Lab: [facility] [id number] CREATININE 0.8 mg/dL 0.7-1.2 UREA NITROGEN 12 mg/dL 8-26 GLUCOSE 112 mg/dL H 70-100 SODIUM 136 mmol/L 136-145 POTASSIUM 4.0 mmol/L 3.5-5.1 CHLORIDE 103 mmol/L 98-107 CO2 24 mmol/L 22-29 CALCIUM 9.6 mg/dL 8.4-10.2 MAGNESIUM 2.2 mg/dL 1.6-2.6 ANION GAP 9 mmol/L 5-15 .CREAT EGFR(CKD-EPI ) 90 >60 July 22, 2023 07:48 AM [facility] POC INR([place]) Specimen Type: BLOOD No comment entered. Ordering Provider: GUY LINDSAY Report Released Date/Time: July 22, 2023 07:51 AM Reporting Lab: [facility] [id number] Performing Lab: [facility] [id number] POC INR([place]AGUCHE K) 2.9 {INR} H 0.8-1.1 Social History: Smoking Status (Most current) and Tobacco Use (All prior to encounter date) This section includes the most current, and the historical, smoking and tobacco- related health factors from the [facility] where the Encounter took place. Current Smoking Status This section includes the most current smoking, or tobacco-related health factor, from the [place] facility where the Encounter took place. Date/Time Current Smoking Status Comment Facil ity May 09, 2022 08:45 AM VA-TOBACCO FORMER USER [facility] Tobacco Use History This section includes a history of the smoking, or tobacco-related health factors, that were collected on or before the date of the Encounter. The data comes from the [place] facility where the Encounter took place. Date/Time Smoking Status/Tobacco Use Comment F acility May 09, 2022 08:45 AM VA-TOBACCO QUIT 15 YRS OR MORE [facility] May 30, 2021 08:15 AM VA-TOBACCO FORMER USER [facility] May 30, 2021 08:15 AM VA-TOBACCO QUIT 15 YRS OR MORE [facility] May 29, 2020 08:30 AM VA-TOBACCO FORMER USER [facility] May 29, 2020 08:30 AM VA-TOBACCO QUIT 15 YRS OR MORE [facility] Feb 09, 2019 09:07 AM VA-TOBACCO FORMER USER [facility] Feb 09, 2019 09:07 AM VA-TOBACCO QUIT 15 YRS OR MORE [facility] Apr 22, 2018 10:04 AM VA-TOBACCO FORMER USER [facility] Apr 22, 2018 10:04 AM VA-TOBACCO QUIT 15 YRS OR MORE [facility] Apr 02, 2017 09:41 AM FORMER TOBACCO USER 7Y OR GREATE R [facility] Apr 02, 2016 02:38 PM FORMER TOBACCO USER 7Y OR GREATE R [facility] Apr 26, 2015 08:09 AM FORMER TOBACCO USER 7Y OR GREATE R [facility] May 17, 2014 08:12 AM FORMER TOBACCO USER 7Y OR GREATE R [facility] Sep 11, 2010 12:27 PM FORMER TOBACCO USER 7Y OR GREATE R [facility] Encounter Notes: All associated encounter notes This section contains the clinical notes associated to the Encounter. Date/Time Encounter Note(s) Provider Source Aug 15, 2023 08:10 AM OPHTHALMOLOGY ATTE MOOSE NOTE: LOCAL TITLE: OPHTHALMOLOGY CLINIC NOTE STANDARD TITLE: OPHTHALMOLOGY ATTENDING NOTE DATE OF NOTE: AUG 15, 2023@08:10 ENTRY DATE: AUG 15, 2023@08:10:26 AUTHOR: ROBERT MORALES COSIGNER: URGENCY: STATUS: COMPLETED 78 yo here for a DM exam. Results HEMOGLOBIN A1C BLOOD SP LB #[id number] Collection time: Jan 14, 2023@07:40 Test Name Result Units Range --------- ------ ----- ----- HEMOGLOBIN A1C 6.2 H % 4.0 - 6.0 I have reviewed and agree with the hazardous waste material technician note of today Patient is alert and oriented X3 and mood and affect are appropriate. SLE: Ext: Nl ou LLL: Nl ou C/S: W and Q ou K: Clear ou AC: D and Q ou Iris: R and F ou Lens: PCL OD, 1+ NSC 2+ CC OS DFE ON: Enlarged cupping OD C/D: 0.5/0.4 MVP: Nl OU Assessment/Plan: # DM - No DR, control BS/BP. # Enlarged ON cupping OD - Will get an RNFL next year. # Cataract OS - Some decreased vision but the pt is happy with his vision. # PCL OD - Stable. # Dermatochalasis OU - No complaints. # Atigmatism OU - New Rx today. RTC: 1 year vtdmr rnfl LOCAL TITLE: GUM WORKER NOTE STANDARD TITLE: GUM WORKER NOTE DATE OF NOTE: AUG 15, 2023@07:49 ENTRY DATE: AUG 15, 2023@07:49:28 AUTHOR: SEAN PRINCE EXP COSIGNER: URGENCY: STATUS: COMPLETED Eye Start Exam Patient: CECI FRAGOSO Sex: MALE SSN: [id number] Birthdate: [birth year] CC/HPI: Diabetic Eye exam, VTDMR. Patient reports no vision changes OU. Denies eye pain, discomfort, new flashes or floaters OU. No eye drops/ eye vitamins. Active Problems List: Active problems - Computerized Problem List is the source for the followin. Hearing loss (SNOMED CT 01302037) - Total loss leftear( [facility] not rec cochlear implant - Hearing aid - right ear. 2. Insomnia (SNOMED CT 726164398) 3. Hypertension 4. PATENT FORAMEN OVALE - Repair through sternotomy 2000- [facility] 5. Long-term current use of anticoagulant (SNOMED CT 822890324) 6. 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 Hyperlipidemia 8. Obstructive sleep apnea 9. Paroxysmal atrial fibrillation 10. co-mgd - [facility] Dr. Jimenez 11. History of colonoscopy - 2013 Cscope w/diverticuli o/w nl, [facility]. F/u rec 10yr 12. Diabetes mellitus 13. History of cerebrovascular accident - Cerebellar infarct 07/17/2000 14. Ex-smoker - 30pack yr. Quit 1970s 15. Aortic root dilatation - 2014 echo ([place]) aortic root 4.3cm; ascending aorta 3.9cm - TTE 10/2018: EF 61%, ascending aorta 4.0cm, arch 3.0cm Surgeries: JUN 21, 2020 Proc: CE IOL RIGHT EYE Follow Up Exam Eye Medications Allergies: Patient has answered NKA Last refraction: Vision: OD:CC(with glasses) OD: 20/20 Pinhole: 20/ Vision: OS:CC(with glasses) 0S: 20/30-1 Pinhole: 20/ NEW MR: OD: -1.50 +1.25 x003 20/20 OS: -1.25 +1.25 x180 20/30-2 OU: 20/20-1 Add: +2.75 20/30 BAT: 20/80 OS Confrontational Zhao: Full to finger counting: Right: Yes, full with lid lift Left: Yes, full with lid lift Extra Ocular Movement: Normal Pupils: Right: Round Left: Round Size: Right: 4 Left: 4 React to light: Right: Yes Left: Afferent pupil defect: Right:No Grade: Left: No Grade: Note: Intra-ocular pressure (IOP): OD: 12 OS: 13 iCare Dilation: mydriacyl 1% and neosynephrine OU @ 8:03AM /bryant/ [facility] Retail Support Manager Signed: 08/15/2023 08:04 /es/ ROBERT MORALES MD STAFF MILL CONTROL OPERATOR Signed: 08/15/2023 08:24 ROBERT MORALES [facility] Aug 15, 2023 07:49 AM OPHTHALMOLOGY TECH NICIAN NOTE: LOCAL TITLE: GUM WORKER NOTE STANDARD TITLE: GUM WORKER NOTE DATE OF NOTE: AUG 15, 2023@07:49 ENTRY DATE: AUG 15, 2023@07:49:28 AUTHOR: SEAN PRINCE EXP COSIGNER: URGENCY: STATUS: COMPLETED Eye Start Exam Patient: CECI FRAGOSO Sex: MALE SSN: [id number] Birthdate: [birth year] CC/HPI: Diabetic Eye exam, VTDMR. Patient reports no vision changes OU. Denies eye pain, discomfort, new flashes or floaters OU. No eye drops/ eye vitamins. Active Problems List: Active problems - Computerized Problem List is the source for the followin. Hearing loss (SNOMED CT 15379057) - Total loss leftear( [facility] not rec cochlear implant - Hearing aid - right ear. 2. Insomnia (SNOMED CT 238200912) 3. Hypertension 4. PATENT FORAMEN OVALE - Repair through sternotomy 2000- [facility] 5. Long-term current use of anticoagulant (SNOMED CT 222987474) 6. 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 Hyperlipidemia 8. Obstructive sleep apnea 9. Paroxysmal atrial fibrillation 10. co-mgd - [place] Dr. Phyo 11. History of colonoscopy - 2013 Cscope w/diverticuli o/w nl, [facility]. F/u rec 10yr 12. Diabetes mellitus 13. History of cerebrovascular accident - Cerebellar infarct 07/17/2000 14. Ex-smoker - 30pack yr. Quit 1970s 15. Aortic root dilatation - 2014 echo ([place]) aortic root 4.3cm; ascending aorta 3.9cm - TTE 10/2018: EF 61%, ascending aorta 4.0cm, arch 3.0cm Surgeries: JUN 21, 2020 Proc: CE IOL RIGHT EYE Follow Up Exam Eye Medications Allergies: Patient has answered NKA Last refraction: Vision: OD:CC(with glasses) OD: 20/20 Pinhole: 20/ Vision: OS:CC(with glasses) 0S: 20/30-1 Pinhole: 20/ NEW MR: OD: -1.50 +1.25 x003 20/20 OS: -1.25 +1.25 x180 20/30-2 OU: 20/20-1 Add: +2.75 20/30 BAT: 20/80 OS Confrontational Zhao: Full to finger counting: Right: Yes, full with lid lift Left: Yes, full with lid lift Extra Ocular Movement: Normal Pupils: Right: Round Left: Round Size: Right: 4 Left: 4 React to light: Right: Yes Left: Afferent pupil defect: Right:No Grade: Left: No Grade: Note: Intra-ocular pressure (IOP): OD: 12 OS: 13 iCare Dilation: mydriacyl 1% and neosynephrine OU @ 8:03AM /bryant/ Sean Prince [facility] Retail Support Manager Signed: 08/15/2023 08:04 SEAN PRINCE [facility]
--- OUTSIDE RECORDS SUMMARY | 2023-11-13 08:48 | XMS_ITS | Continuity of Care Document ---
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 It does not include entries that were removed or entered in error. Problem Status Onset Date Problem Type Date of Resolution Comments Source Aortic root dilatation Active Condition May 30, 2020 Entered By: FABIAN GIBSON Comment: 2014 echo ([place]) aortic root 4.3cm; ascending aorta 3.9cmApr 2020 Entered By: FABIAN GIBSON Comment: TTE 10/2018: EF 61%, ascending aorta 4.0cm, arch 3.0cm [facility] Basal cell carcinoma of forehead Active Condition May 17, 2014 Entered By: TERRIE PARK Comment: H/O of SCCA and BCCA.Aug 27, 2023 Entered By: GUY LINDSAY Comment: BCC 1-24 Bx, MOHS 4-24 [facility] co-mgd Active Condition Apr 22 19 Entered By: FABIAN GIBSON Comment: [place] [facility] Jim[facility] Diabetes mellitus [facility] Ex-smoker Active Condition May 30 Entered By: FABIAN GIBSON Comment: 30pack yr. Quit 1970s [facility] Hearing loss (SNOMED CT 50123765) Active Condition Mar 20, 2011 Entered By: JUDITH THOMPSON Comment: Total loss leftear( [place] did not rec cochlear implantMar 20, 2011 Entered By: JUDITH THOMPSON Comment: Hearing aid - right ear. [facility] History of cerebrovascular accident Active Condition May 30, 2020 Entered By: FABIAN GIBSON Comment: Cerebellar infarct 07/17/2000 [facility] History of colonoscopy Active Condition May 06, 2019 Entered By: FABIAN GIBSON Comment: 2013 Cscope w/diverticuli o/w nl, [facility]. F/u rec 10yr [facility] Hyperlipidemia Active Condition [facility] Hypertension Active Condition [facility] Insomnia (SNOMED CT 673683948) Active Condition [facility] Long-term current use of anticoagulant (SNOMED CT 903189634) Active Condition [facility] Obstructive sleep apnea Active Condition [facility] Paroxysmal atrial fibrillation Active Condition [facility] PATENT FORAMEN OVALE Active Condition Mar 20, 2011 Entered By: JUDITH THOMPSON Comment: Repair through sternotomy 2000- [facility] Diagnosis: ICD-10-CM Z51.81 Encounter for therapeutic drug level monitoring [facility] Diagnosis: ICD-10-CM I10 Essential (primary) hypertension Active Diagnosis [facility] Diagnosis: ICD-10-CM E11.9 Type 2 diabetes mellitus without complications Active Diagnosis [facility] Diagnosis: ICD-10-CM Z23 Encounter for immunization Active Diagnosis [facility] Diagnosis: ICD-10-CM Z79.01 detention (current) use of anticoagulants Active Diagnosis SCAR Wallace [facility] Diagnosis: ICD-10-CM D48.5 Neoplasm of uncertain behavior of skin Active Diagnosis [facility] Diagnosis: ICD-10-CM R21 Rash and other nonspecific skin eruption Active Diagnosis [facility] Medications Combined list of outpatient medications from Department of Defense and Veterans Affairs facilities.Medications provided include 1) outpatient medications from the last 15 months, and 2) patient-reported medications. Medication Details Route Status Patient Instructions Prescription Expires Prescription Number Last Dispense Date Ordering Provider Order Date Order Qty Source AMOXICILLIN TRIHYDRATE 500MG CAP AMOXICIL RAMAN TRIHYDRA TE 500MG CAP Active TAKE FOUR CAPSULES BY MOUTH DIRECTED ONE HOUR BEFORE PROCEDUR E Jan 14, 2023 4 Jan 15, 2024 [id number] E Aug 22, 2023 ALBERTO JESUS [facility] 01/15/2024 [id number] MEGHAN JESUS 2022 4 [facility] AMOXICILLIN TRIHYDRATE 500MG CAP AMOXICIL RAMAN TRIHYDRA TE 500MG CAP Disconti nued TAKE FOUR CAPSULES BY MOUTH DIRECTED ONE HOUR BEFORE PROCEDUR E Dec 17, 2021 4 Dec 18, 2022 [id number] D Aug 18, 2022 NANETTE CUEVAS [facility] ORAL DISCONT INUED 12/18/2022 [id number] JENNYFER CUEVAS 2021 4 [facility] ASPIRIN 81MG TAB,EC ASPIRIN 81MG TAB,EC Disconti nued TAKE ONE TABLET BY MOUTH EVERY DAY Jan 14, 2023 120 Jan 15, 2024 [id number] A Jan 29, 2023 EDINALBERTO Brewster [facility] ORAL DISCONT INUED BY PROVIDE R 01/15/2024 [id number] MEGHAN JESUS 2022 120 [facility] ASPIRIN 81MG TAB,EC ASPIRIN 81MG TAB,EC Disconti nued TAKE ONE TABLET BY MOUTH EVERY DAY Dec 12, 2021 120 Dec 13, 2022 [id number] Nov 10, 2022 ERNESTINA XIAO [facility] ORAL DISCONT INUED 12/13/2022 [id number] EMILY XIAO 2021 120 [facility] HYDROCHLORO THIAZIDE 50MG/TRIAMT ERENE 75MG TAB HYDROCHL OROTHIAZ MAIKOL 50MG/TRI AMTERENE 75MG TAB Active TAKE 1 TABLET BY MOUTH EVERY MORNING FOR BLOOD PRESSURE Jan 14, 2023 90 Jan 15, 2024 [id number] H Sep 12, 2023 ALBERTO JESUS Narcisa [facility]ARK [facility] ORAL ACTIVE 01/15/2024 [id number] MEGHAN JESUS 2023 90 [facility] HYDROCHLORO THIAZIDE 50MG/TRIAMT ERENE 75MG TAB HYDROCHL OROTHIAZ MAIKOL 50MG/TRI AMTERENE 75MG TAB Disconti nued TAKE 1 TABLET BY MOUTH EVERY MORNING FOR BLOOD PRESSURE Mar 11, 2022 90 Mar 12, 2023 [id number] G Dec 28, 2022 ERNESTINA XIAO [facility] ORAL DISCONT INUED 03/12/2023 [id number] EMILY XIAO 2022 90 [facility] LISINOPRIL 10MG TAB LISINOPR [place] 10MG TAB Active TAKE ONE TABLET BY MOUTH EVERY DAY FOR BLOOD PRESSURE FOR BLOOD PRESSURE Aug 27, 2023 90 Aug 27, 2024 [id number] Aug 28, 2023 JAYE LINDSAY [facility] 08/27/2024 [id number] SHAE LINDSAY 2023 90 [facility] LISINOPRIL 10MG TAB LISINOPR [place] 10MG TAB Disconti nued TAKE ONE-HALF TABLET BY MOUTH EVERY DAY July 16, 2023 45 July 16, 2024 [id number] D Sep 14, 2023 JAYE LINDSAY [facility] ORAL DISCONT INUED (EDIT) 07/16/2024 [id number] SHAE LINDSAY 2023 45 [facility] LISINOPRIL 10MG TAB LISINOPR [place] 10MG TAB Disconti nued TAKE ONE-HALF TABLET BY MOUTH EVERY DAY Nov 11, 2022 45 Nov 12, 2023 [id number] C Jun 16, 2023 INES ORTEGA W [facility] ORAL DISCONT INUED 11/12/2023 [id number] KANNAN ORTEGA 2022 45 [facility] LISINOP[facility]MG TAB LISINOPR [place] 10MG TAB Disconti nued TAKE ONE-HALF TABLET BY MOUTH EVERY DAY Mar 11, 2022 45 Mar 12, 2023 [id number] B Oct 09, 2022 ERNESTINA XIAO [facility] ORAL DISCONT INUED 03/12/2023 [id number] EMILY XIAO 2022 45 [facility] METOPROLOL TARTRATE 100MG TAB METOPROL OL TARTRATE 100MG TAB Active: Susp TAKE ONE TABLET BY MOUTH TWICE A DAY Mar 19, 2023 180 Mar 19, 2024 [id number] Dec 05, 2023 [facility] ORAL SUSPEND ED 03/19/2024 [id number] SHAE LINDSAY 2023 180 [facility] METOPROLOL TARTRATE 100MG TAB METOPROL OL TARTRATE 100MG TAB Disconti nued TAKE ONE TABLET BY MOUTH TWICE A DAY Mar 11, 2022 180 Mar 12, 2023 [id number] Sep 27, 2022 ERNESTINA XIAO [facility] ORAL DISCONT INUED 03/12/2023 [id number] EMILY XIAO 2022 180 [facility] MULTIVITAMI NS CAP/TAB MULTIVIT AMINS CAP/TAB Active: Susp TAKE 1 TABLET BY MOUTH EVERY MORNING Mar 19, 2023 100 Mar 19, 2024 [id number] K Dec 05, 2023 JAYE LINDSAY [facility] ORAL SUSPEND ED 03/19/2024 [id number] SHAE LINDSAY A 2023 100 [facility] MULTIVITAMI NS CAP/TAB MULTIVIT AMINS CAP/TAB Disconti nued TAKE 1 TABLET BY MOUTH EVERY MORNING Mar 11, 2022 100 Mar 12, 2023 [id number] J Oct 29, 2022 ERNESTINA XIAO [facility] ORAL DISCONT INUED 03/12/2023 [id number] 3 EMILY XIAO 2022 100 [facility] PRAVASTATIN NA 80MG TAB PRAVASTA TIN NA 80MG TAB Active: Susp TAKE ONE TABLET BY MOUTH DAILY FOR CHOLESTE ROL Mar 19, 2023 90 Mar 19, 2024 [id number] I Dec 05, 2023 JAYE LINDSAY [facility] ORAL SUSPEND ED 03/19/2024 [id number] 4 SHAE LINDSAY A 2023 90 [facility] PRAVASTATIN NA 80MG TAB PRAVASTA TIN NA 80MG TAB Disconti nued TAKE ONE TABLET BY MOUTH DAILY FOR CHOLESTE ROL Mar 11, 2022 90 Mar 12, 2023 [id number] H Nov 14, 2022 ERNESTINA XIAO [facility] ORAL DISCONT INUED 03/12/2023 [id number] 3 EMILY XIAO 2022 90 [facility] PSYLLIUM SUGAR FREE PWDR,ORAL PSYLLIUM SUGAR FREE PWDR,ORA L Active TAKE 1 TABLESPO ONFUL BY MOUTH EVERY DAY MIXED IN JUICE OR WATER DIRECTED Mar 26, 2023 300 Mar 26, 2024 [id number] A Sep 12, 2023 NEFTALIJAYE HUGGINS A [facility] 03/26/2024 [id number] 4 NEFTALISHAE NISHI A 2023 300 [facility] PSYLLIUM SUGAR FREE PWDR,ORAL PSYLLIUM SUGAR FREE PWDR,ORA L Disconti nued TAKE 1 TABLESPO ONFUL BY MOUTH EVERY DAY MIXED IN JUICE OR WATER DIRECTED Jun 25, 2022 300 Jun 26, 2023 [id number] Mar 15, 2023 Mikki JONES Y [facility] ORAL DISCONT INUED 06/26/2023 [id number] TONI JONES NDE Y 2022 300 [facility] TRIAMCINOLO NE ACETONIDE 0.1% CREAM,TOP TRIAMCIN OLONE ACETONID E 0.1% CREAM,TO P Active APPLY THIN LAYER TOPICALL Y TWICE A DAY FOR RASH ON NECK FOR RASH Jan 14, 2023 80 Jan 15, 2024 [id number] Sep 11, 2023 ALBERTO JESUS [facility] TOPICA L ACTIVE 01/15/2024 [id number] MEGHAN JESUS 2022 80 [facility] WARFARIN NA ([place]) 5MG TAB WARFARIN NA ([place]) 5MG TAB Active TAKE THIS MEDICATI ON BY MOUTH EVERY DAY TO PREVENT STROKES DIRECTED BY THE [facility] (PHONE: ) TO PREVENT STROKES Mar 12, 2023 50 Mar 12, 2024 [id number] Aug 29, 2023 SARAH BOO [facility] ORAL ACTIVE 03/12/2024 [id number] Shabana BOO 2023 50 [facility] WARFARIN NA ([place]) 5MG TAB WARFARIN NA ([place]) 5MG TAB Disconti nued TAKE ONE-HALF TABLET BY MOUTH EVERY DAY OR DIRECTED BY [facility] TO TREAT AND/OR PREVENT BLOOD CLOTS Mar 12, 2022 50 Mar 13, 2023 [id number] C Aug 18, 2022 Shabana BOLDEN [facility] ORAL DISCONT INUED 03/13/2023 [id number] INES BOLDEN 2022 50 [facility] ZINC GLUCONATE TAB ZINC GLUCONAT E TAB Non-VA TAKE Apr 16, 2012 Non-VA Document ed by: JUDITH THOMPSON Document ed at: [facility] Mikki THOMPSON 2012 [facility] ZOLPIDEM TARTRATE 10MG TAB ZOLPIDEM TARTRATE 10MG TAB TAKE ONE TABLET BY MOUTH AT BEDTIME FOR SLEEP. TAKE ON AN EMPTY STOMACH Aug 21, 2022 30 Feb 21, 2023 [id number] B Feb 20, 2023 ASHLEY,MARIZA PAN A [facility] ORAL 02/21/2023 [id number] NORMAN RAMIREZ ER A 2022 30 [facility] Immunizations Combined list of available immunizations from the Department of Defense and [facility] Affairs facilities. Immunization Series Date Given Administered By Site Reaction Lot Number CVX Code Drug Computer Application Developer Status Comments Source COVID-19 (Dopios), MRNA, LNP-S, PF, [place]-SUCROSE, 30 MCG/0.3 ML (AGES 12+ YEARS) 1 2023 Yeimy GREEN E LEFT DELTO ID [id number] 309 complet ed [facility] COVID-19 (Dopios), MRNA, LNP-S, PF, [place]-SUCROSE, 30 MCG/0.3 ML (AGES 12+ YEARS) 1 2022 COSTA ,ANDOM G LEFT DELTO ID [id number] 309 complet ed [facility] INFLUENZA, HIGH-DOSE, QUADRIVALENT 2022 HABTESELASSIE ,ANDOM G RIGHT DELTO ID [id number] 197 complet ed [facility] COVID-19 (PFIZER), MRNA, LNP-S, BIVALENT BOOSTER, PF, 30 MCG/0.3 ML DOSE 2 2022 EVETTE ROBLERO L LEFT DELTO ID [id number] 300 complet ed [facility] COVID-19, MRNA, LNP-S, BIVALENT BOOSTER, PF, 30 MCG/0.3 ML DOSE 1 2021 300 complet ed PFR; [id number]; 3 [facility] INFLUENZA VACCINE, QUADRIVALENT, ADJUVANTED 2021 205 complet ed [facility] COVID-19 (PFIZER), MRNA, LNP-S, PF, 30 MCG/0.3 ML DOSE, [place]OR[place]-SUCROSE (AGES 12+ YEARS) 4 2021 217 complet ed PFR; [id number]; 2 [facility] COVID-19 (Dopios), MRNA, LNP-S, PF, 30 MCG/0.3 ML DOSE 3 2020 208 complet ed PFR; [id number]; 1 [facility] INFLUENZA, INJECTABLE, QUADRIVALENT, PRESERVATIVE FREE 2020 150 complet ed [facility] INFLUENZA, HIGH DOSE SEASONAL 2020 135 complet ed [facility] TD (ADULT), 2 LF TETANUS TOXOID, PRESERVATIVE FREE, ADSORBED 2020 09 complet ed SD [facility] COVID-19 (PFIZER), MRNA, LNP-S, PF, 30 MCG/0.3 ML DOSE 2 2020 208 complet ed [facility] COVID-19 (Dopios), MRNA, LNP-S, PF, 30 MCG/0.3 ML DOSE 1 2020 208 complet ed [facility] INFLUENZA, INJECTABLE, QUADRIVALENT, PRESERVATIVE FREE 2019 150 complet ed [facility] INFLUENZA, HIGH DOSE SEASONAL 2019 135 complet ed [facility] INFLUENZA, RECOMBINANT, QUADRIVALENT, INJECTABLE, PRESERVATIVE FREE 2018 185 complet ed [facility] INFLUENZA, HIGH DOSE SEASONAL 2018 135 complet ed [facility] ZOSTER RECOMBINANT 2 2018 187 complet ed [facility] ZOSTER RECOMBINANT 1 2018 187 complet ed [facility] INFLUENZA, SEASONAL, INJECTABLE, PRESERVATIVE FREE 2017 140 complet ed [facility] INFLUENZA, HIGH DOSE SEASONAL 2017 135 complet ed [facility] INFLUENZA, HIGH DOSE SEASONAL 2016 135 complet ed [facility] INFLUENZA, HIGH DOSE SEASONAL 2015 135 complet ed [facility] INFLUENZA, SEASONAL, INJECTABLE 2015 141 complet ed [facility] INFLUENZA, HIGH DOSE SEASONAL 2014 135 complet ed [facility] INFLUENZA, UNSPECIFIED FORMULATION 2014 88 complet ed [facility] PNEUMOCOCCAL CONJUGATE PCV 13 2014 133 complet ed [facility] PNEUMOCOCCAL CONJUGATE PCV 13 2014 133 complet ed [facility] INFLUENZA, SEASONAL, INJECTABLE 2013 141 complet ed [facility] INFLUENZA, HIGH DOSE SEASONAL 2013 135 complet ed [facility] ZOSTER LIVE 2013 121 complet ed [facility] INFLUENZA, UNSPECIFIED FORMULATION 2012 88 complet ed [facility] INFLUENZA, UNSPECIFIED FORMULATION 2012 88 complet ed [facility] ZOSTER LIVE 2011 121 complet ed [employer] Lot# [id number] Exp.11/28 [facility] INFLUENZA, UNSPECIFIED FORMULATION 2011 88 complet ed [facility] INFLUENZA, SEASONAL, INJECTABLE 2011 141 complet ed [facility] INFLUENZA, UNSPECIFIED FORMULATION 2010 88 complet ed [facility] INFLUENZA, UNSPECIFIED FORMULATION 2010 88 complet ed [facility] TDAP 2010 115 complet ed glaxPersonal Style Finderit hkline, [id number] A, 05/25/12 [facility] PNEUMOCOCCAL POLYSACCHARID E PPV23 2010 33 complet ed [facility] PNEUMOCOCCAL, UNSPECIFIED FORMULATION 2010 109 complet ed [place], [id number], [id number] [facility] INFLUENZA, UNSPECIFIED FORMULATION 2009 88 complet ed [facility] NOVEL INFLUENZA-H1N 1-09, ALL FORMULATIONS 2008 128 complet ed [facility] PNEUMOCOCCAL, UNSPECIFIED FORMULATION 2000 109 complet ed [facility] Results Combined list of recent chemistry, hematology and other laboratory results from Department of Defense and Veterans Affairs, ranging from 15 months to all on record, depending upon the facility. Order Name Results Value Reference Range Date Interpretation Specimen Comments Source POC INR(COAGU CHEK) INR IN BLOOD BY COAGULATION ASSAY 2.3 {INR} 0.8 - 1.1 10/26 H Specimen Type: BLOOD No comment entered. Ordering Provider: GUY LINDSAY Report Released Date/Time: Oct 27, 2023 07:48 AM Reporting Lab: [facility] [phone] Performing Lab: [facility] [address] [facility] ALBUMIN/C REATININE RATIO URINE CREATININE [MASS/VOLUM E] IN URINE 46.8 mg/dL 58.0 - 161.0 08/26 L Specimen Type: URINE No comment entered. Ordering Provider: GUY LINDSAY Report Released Date/Time: Aug 27, 2023 08:33 AM Reporting Lab: [facility] [address] Performing Lab: [facility] [phone] [facility] ALBUMIN/C REATININE RATIO URINE MICROALBUMI N/CREATININ E [MASS RATIO] IN URINE 16.9 mg/g{c reat} <29.9 - 29.9 08/26 Specimen Type: URINE No comment entered. Ordering Provider: GUY LINDSAY Report Released Date/Time: Aug 27, 2023 08:33 AM Reporting Lab: [facility] [address] Performing Lab: [facility] [address] [facility] ALBUMIN/C REATININE RATIO URINE MICROALBUMI N [MASS/VOLUM E] IN URINE 7.9 mg/L <29.9 - 29.9 08/26 Specimen Type: URINE No comment entered. Ordering Provider: GUY LINDSAY Report Released Date/Time: Aug 27, 2023 08:33 AM Reporting Lab: [facility] [phone] Performing Lab: [facility] [phone] [facility] POC INR(COAGU CHEK) INR IN BLOOD BY COAGULATION ASSAY 2.2 {INR} 0.8 - 1.1 08/26 H Specimen Type: BLOOD No comment entered. Ordering Provider: GUY LINDSAY Report Released Date/Time: Aug 27, 2023 08:41 AM Reporting Lab: [facility] [phone] Performing Lab: [facility] [address] [place] [facility] BASIC METABOLIC PANEL+MG CREATININE [MASS/VOLUM E] IN SERUM OR PLASMA 0.8 mg/dL 0.7 - 1.2 08/26 Specimen Type: PLASMA No comment entered. Ordering Provider: GUY LINDSAY Report Released Date/Time: Aug 27, 2023 08:33 AM Reporting Lab: [facility] [address] Performing Lab: [facility] [address] [place] [facility] BASIC METABOLIC PANEL+MG UREA NITROGEN [MASS/VOLUM E] IN SERUM OR PLASMA 12 mg/dL 8 - 08/26 Specimen Type: PLASMA No comment entered. Ordering Provider: GUY LINDSAY Report Released Date/Time: Aug 27, 2023 08:33 AM Reporting Lab: [facility] [address] Performing Lab: [facility] [address] [place] [facility] BASIC METABOLIC PANEL+MG GLUCOSE [MASS/VOLUM E] IN SERUM OR PLASMA 112 mg/dL 70 - 100 08/26 H Specimen Type: PLASMA No comment entered. Ordering Provider: GUY LINDSAY Report Released Date/Time: Aug 27, 2023 08:33 AM Reporting Lab: [facility] [address] Performing Lab: [facility] [address] [place] [facility] BASIC METABOLIC PANEL+MG SODIUM [MOLES/VOLU ME] IN SERUM OR PLASMA 136 mmol/L 136 - 145 08/26 Specimen Type: PLASMA No comment entered. Ordering Provider: GUY LINDSAY Report Released Date/Time: Aug 27, 2023 08:33 AM Reporting Lab: [facility] [address] Performing Lab: [facility] [address] [place] [facility] BASIC METABOLIC PANEL+MG POTASSIUM [MOLES/VOLU ME] IN SERUM OR PLASMA 4.0 mmol/L 3.5 - 5.1 08/26 Specimen Type: PLASMA No comment entered. Ordering Provider: GUY LINDSAY Report Released Date/Time: Aug 27, 2023 08:33 AM Reporting Lab: [facility] [address] Performing Lab: [facility] [address] [place] [facility] BASIC METABOLIC PANEL+MG CHLORIDE [MOLES/VOLU ME] IN SERUM OR PLASMA 103 mmol/L 98 - 107 08/26 Specimen Type: PLASMA No comment entered. Ordering Provider: GUY LINDSAY Report Released Date/Time: Aug 27, 2023 08:33 AM Reporting Lab: [facility] [address] Performing Lab: [facility] [address] [place] [facility] BASIC METABOLIC PANEL+MG CARBON DIOXIDE, TOTAL [MOLES/VOLU ME] IN SERUM OR PLASMA 24 mmol/L 22 - 29 08/26 Specimen Type: PLASMA No comment entered. Ordering Provider: GUY LINDSAY Report Released Date/Time: Aug 27, 2023 08:33 AM Reporting Lab: [facility] [address] Performing Lab: [facility] [address] [place] [facility] BASIC METABOLIC PANEL+MG CALCIUM [MASS/VOLUM E] IN SERUM OR PLASMA 9.6 mg/dL 8.4 - 10.2 08/26 Specimen Type: PLASMA No comment entered. Ordering Provider: GUY LINDSAY Report Released Date/Time: Aug 27, 2023 08:33 AM Reporting Lab: [facility] [address] Performing Lab: [facility] [address] [place] [facility] BASIC METABOLIC PANEL+MG MAGNESIUM [MASS/VOLUM E] IN SERUM OR PLASMA 2.2 mg/dL 1.6 - 2.6 08/26 Specimen Type: PLASMA No comment entered. Ordering Provider: GUY LINDSAY Report Released Date/Time: Aug 27, 2023 08:33 AM Reporting Lab: [facility] [address] Performing Lab: [facility] [address] [place] [facility] BASIC METABOLIC PANEL+MG ANION GAP IN SERUM OR PLASMA 9 mmol/L 5 - 15 08/26 Specimen Type: PLASMA No comment entered. Ordering Provider: GUY LINDSAY Report Released Date/Time: Aug 27, 2023 08:33 AM Reporting Lab: [facility] [address] Performing Lab: [facility] [address] [place] [facility] BASIC METABOLIC PANEL+MG GLOMERULAR FILTRATION RATE/1.73 SQ M.PREDICTED [VOLUME RATE/AREA] IN SERUM, PLASMA OR BLOOD BY CREATININE- BASED FORMULA (CKD-EPI 2020) 90 60 08/26 Specimen Type: PLASMA No comment entered. Ordering Provider: GUY LINDSAY Report Released Date/Time: Aug 27, 2023 08:33 AM Reporting Lab: [facility] [address] Performing Lab: [facility] [address] [place] [facility] POC INR(COAGU CHEK) INR IN BLOOD BY COAGULATION ASSAY 2.9 {INR} 0.8 - 1.1 07/21 H Specimen Type: BLOOD No comment entered. Ordering Provider: GUY LINDSAY Report Released Date/Time: July 22, 2023 07:51 AM Reporting Lab: [facility] [address] Performing Lab: [facility] [address] [place] [facility] PT/INR(AN TICOAG) INR IN PLATELET POOR PLASMA BY COAGULATION ASSAY 2.2 0.8 - 1.1 06/02 H Specimen Type: PLASMA No comment entered. Ordering Provider: DIONNE MCCRAY Report Released Date/Time: Mar 20, 2023 01:50 PM Reporting Lab: [facility] [phone] Performing Lab: [facility] [address] [place] [facility] PT/INR(AN TICOAG) PROTHROMBIN TIME (PT) 26.5 s 9.4 - 12.5 06/02 H Specimen Type: PLASMA No comment entered. Ordering Provider: DIONNE MCCRAY Report Released Date/Time: Mar 20, 2023 01:50 PM Reporting Lab: [facility] [phone] Performing Lab: [facility] [address] [place] [facility] CBC LEUKOCYTES [#/VOLUME] IN BLOOD BY AUTOMATED COUNT 9.60 10*3/u L 4.0 - 11.0 06/02 Specimen Type: BLOOD No comment entered. Ordering Provider: CHEYENNE VELASCO Report Released Date/Time: May 07, 2023 08:55 AM Reporting Lab: [facility] [id number] Performing Lab: [facility] [phone] [place] [facility] CBC ERYTHROCYTE S [#/VOLUME] IN BLOOD BY AUTOMATED COUNT 4.67 10*6/u L 4.6 - 6.2 06/02 Specimen Type: BLOOD No comment entered. Ordering Provider: CHEYENNE VELASCO Report Released Date/Time: May 07, 2023 08:55 AM Reporting Lab: [facility] [address] Performing Lab: [facility] [address] [place] [facility] CBC HEMOGLOBIN [MASS/VOLUM E] IN BLOOD 15.4 g/dL 13.5 - 17.9 06/02 Specimen Type: BLOOD No comment entered. Ordering Provider: CHEYENNE VELASCO Report Released Date/Time: May 07, 2023 08:55 AM Reporting Lab: [facility] [phone] Performing Lab: [facility] [address] [place] [facility] CBC HEMATOCRIT [VOLUME FRACTION] OF BLOOD BY AUTOMATED COUNT 44.8 41 - 54 06/02 Specimen Type: BLOOD No comment entered. Ordering Provider: CHEYENNE VELASCO Report Released Date/Time: May 07, 2023 08:55 AM Reporting Lab: [facility] [address] Performing Lab: [facility] [address] [place] [facility] CBC MCV [ENTITIC VOLUME] BY AUTOMATED COUNT 95.9 fL 80 - 100 06/02 Specimen Type: BLOOD No comment entered. Ordering Provider: CHEYENNE VELASCO Report Released Date/Time: May 07, 2023 08:55 AM Reporting Lab: [facility] [address] Performing Lab: [facility] [address] [place] [facility] CBC MCH [ENTITIC MASS] BY AUTOMATED COUNT 33.0 pg 27 - 33 06/02 Specimen Type: BLOOD No comment entered. Ordering Provider: CHEYENNE VELASCO Report Released Date/Time: May 07, 2023 08:55 AM Reporting Lab: [facility] [address] Performing Lab: [facility] [address] [place] [facility] CBC MCHC [MASS/VOLUM E] BY AUTOMATED COUNT 34.4 g/dL 32.0 - 37.5 06/02 Specimen Type: BLOOD No comment entered. Ordering Provider: CHEYENNE VELASCO Report Released Date/Time: May 07, 2023 08:55 AM Reporting Lab: [facility] [address] Performing Lab: [facility] [address] [place] [facility] CBC PLATELETS [#/VOLUME] IN BLOOD BY AUTOMATED COUNT 254 10*3/u L 150 - 400 06/02 Specimen Type: BLOOD No comment entered. Ordering Provider: CHEYENNE VELASCO Report Released Date/Time: May 07, 2023 08:55 AM Reporting Lab: [facility] [address] Performing Lab: [facility] [address] [place] [facility] CBC PLATELET MEAN VOLUME [ENTITIC VOLUME] IN BLOOD BY AUTOMATED COUNT 9.7 fL 7.4 - 10.4 06/02 Specimen Type: BLOOD No comment entered. Ordering Provider: CHEYENNE VELASCO Report Released Date/Time: May 07, 2023 08:55 AM Reporting Lab: [facility] [address] Performing Lab: [facility] [address] [place] [facility] CBC ERYTHROCYTE DISTRIBUTIO N WIDTH [RATIO] BY AUTOMATED COUNT 11.9 11.5 - 14.5 06/02 Specimen Type: BLOOD No comment entered. Ordering Provider: CHEYENNE VELACSO Report Released Date/Time: May 07, 2023 08:55 AM Reporting Lab: [facility] [address] Performing Lab: [facility] [address] [facility] POC INR(COAGU CHEK) INR IN BLOOD BY COAGULATION ASSAY 2.6 {INR} 0.8 - 1.1 05/05 H Specimen Type: BLOOD No comment entered. Ordering Provider: GUY LINDSAY Report Released Date/Time: May 06, 2023 07:58 AM Reporting Lab: [facility] [address] Performing Lab: [facility] [address] [facility] POC INR(COAGU CHEK) INR IN BLOOD BY COAGULATION ASSAY 2.5 {INR} 0.8 - 1.1 03/11 H Specimen Type: BLOOD No comment entered. Ordering Provider: GUY LINDSAY Report Released Date/Time: Mar 11, 2023 07:51 AM Reporting Lab: [facility] [address] Performing Lab: [facility] [address] [facility] POC INR(COAGU CHEK) INR IN BLOOD BY COAGULATION ASSAY 2.1 {INR} 01/14 H Specimen Type: BLOOD No comment entered. Ordering Provider: GUY LINDSAY Report Released Date/Time: Jan 14, 2023 07:47 AM Reporting Lab: [facility] [address] Performing Lab: [facility] [address] [facility] Vital Signs Combined list of inpatient and outpatient Vital Signs from Department of Defense and Veterans Affairs, ranging from 12 months to all on record, depending upon the facility. Vital Sign Value Date Comments Source SYSTOLIC BLOOD PRESSURE 153 08/27/2023 07:55:21 [facility] DIASTOLIC BLOOD PRESSURE 71 08/27/2023 07:55:21 [facility] PULSE OXIMETRY 96 08/27/2023 07:55:21 [place] [facility] WEIGHT 200 08/27/2023 07:55:21 [facility] BMI 31kg/m2 08/27/2023 07:55:21 [facility] PAIN 0 08/27/2023 07:55:21 [facility] HEIGHT 67 08/27/2023 07:55:21 [facility] TEMPERATURE 97.9 08/27/2023 07:55:21 [facility] PULSE 50 08/27/2023 07:55:21 [facility] RESPIRATION 18 08/27/2023 07:55:21 [facility] SYSTOLIC BLOOD PRESSURE 162 06/09/2023 13:28:12 [facility] DIASTOLIC BLOOD PRESSURE 77 06/09/2023 13:28:12 [facility] PULSE OXIMETRY 94 06/09/2023 13:28:12 [facility] TEMPERATURE 98.1 06/09/2023 13:28:12 [facility] PULSE 62 06/09/2023 13:28:12 [facility] SYSTOLIC BLOOD PRESSURE 148 01/14/2023 08:40:24 [facility] DIASTOLIC BLOOD PRESSURE 65 01/14/2023 08:40:24 [facility] PULSE OXIMETRY 95% 01/14/2023 08:40:24 [facility] WEIGHT 198 01/14/2023 08:40:24 [facility] BMI 31kg/m2 01/14/2023 08:40:24 [facility] PAIN 0 01/14/2023 08:40:24 [facility] TEMPERATURE 98.4 01/14/2023 08:40:24 [facility] PULSE 50 01/14/2023 08:40:24 [facility] RESPIRATION 18 01/14/2023 08:40:24 [facility] Encounters Combined list of: 1) Encounters from 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 Location Location Details Encounter Type Encounter Number Reason For Visit Attending Provider ADM Date DC Date Status Disposition Source [facility] PRO PHONE CALL 5-10 MIN [id number] Diagnos is: ICD-10- CM Z51.81 Encount er for therape utic drug level monitor ing<br/ > DC BOO Y 06/07 [place] [facility] Outpatient Encounter [id number] 07[facility]12 [place] [facility] Outpatient Encounter [id number] ALEXANDER VERDUGO 07/15 [facility] OFFICE O/P EST MOD 30-39 MIN [id number] Diagnos is: ICD-10- CM E11.9 Type 2 diabete s mellitu s without complic ations< br/> DEVIN MORALES ER S 07/31 [facility] [place]UN[place] ADMIN [id number] Diagnos is: ICD-10- CM Z23 Encount er for immuniz ation<b r/> MAYURI ROBLERO 07/31 [facility] QNHP OL DIG ASSMT&MGMT 5-10 [id number] Diagnos is: ICD-10- CM Z51.81 Encount er for therape utic drug level monitor ing<br/ > JASON YI 08/01 [facility] Outpatient Encounter [id number] 08/21 [facility] Outpatient Encounter [id number] ALEXANDER VERDUGO 09/05 [place] [facility] QNHP OL DIG ASSMT&MGMT 5-10 [id number] Diagnos is: ICD-10- CM Z51.81 Encount er for therape utic drug level monitor ing<br/ > PRASHANTH WILSON RA 09/26 [place] [facility] QNHP OL DIG ASSMT&MGMT 5-10 [id number] Diagnos is: ICD-10- CM Z51.81 Encount er for therape utic drug level monitor ing<br/ > MACKENZIE BOLDENPorfirio M 11/20 [facility] Outpatient Encounter [id number] 12/02 [facility] OFFICE O/P EST LOW 20-29 MIN [id number] Diagnos is: ICD-10- CM I10 Essenti al (primar y) hyperte nsion<b r/> DREW JESUS M 01/14 [facility] UNLISTED SPEC DERM SVC/PX [id number] Diagnos is: ICD-10- CM R21 Rash and other nonspec ific skin eruptio n
MANOHAR CHÁVEZ 01/14 [facility] QNHP OL DIG ASSMT&MGMT 5-10 [id number] Diagnos is: ICD-10- CM Z51.81 Encount er for therape utic drug level monitor ing<br/ > Konstantin PRUETT M 01/15 [facility] Outpatient Encounter [id number] Diagnos is: ICD-10- CM D48.5 Neoplas m of uncerta in behavio r of skin
BERSHOW,AN CORAL L 01/15 [facility] OFFICE O/P EST MOD 30 MIN [id number] Diagnos is: ICD-10- CM D48.5 Neoplas m of uncerta in behavio r of skin
JOSSELIN,N OAH I 03/11 [facility] PRO PHONE CALL 11-20 MIN [id number] Diagnos is: ICD-10- CM Z51.81 Encount er for therape utic drug level monitor ing<br/ > WINTER,PRASHANTH RA A 03/12 [place] [facility] [place] [facility] Outpatient Encounter [id number] NANETTE MÉNDEZ LUDY 03/14 [place] [facility] [place] [facility] Out[facility] Encounter [id number] 03/20 [place] [facility] [place] [facility] Outpatient Encounter [id number] FRAN ISAK Mirian 04/21 [place] [facility] Out[facility] Encounter [id number] 04/22 [place] [facility] QNHP OL DIG ASSMT&MGMT 11- [id number] Diagnos is: ICD-10- CM Z79.01 detention (curren t) use of anticoa gulants
STRMARIBEL MCDONNELL 05/06 [facility] Out[facility] Encounter [id number] 06/02 [place] [facility] ADMN SARSCOV2 VACC 1 DOSE [id number] Diagnos is: ICD-10- CM Z23 Encount er for immuniz ation<b r/> ROCCO OSCAR 06/02 [facility] QNHP OL DIG ASSMT&MGMT 5-10 [id number] Diagnos is: ICD-10- CM Z51.81 Encount er for therape utic drug level monitor ing<br/ > CHELY MCDONOUGH 06/03 [facility] CMPLX RPR F/C/C/M/N/ AX/G/H/F [id number] Diagnos is: ICD-10- CM I10 Essenti al (primar y) hyperte nsion<b r/> ALEX WEEKS 06/08 [facility] Outpatient Encounter [id number] 06/08 [place] [facility] [place] [facility] Outpatient Encounter [id number] CADY LÓPEZ Mirian 06/15 [place] [facility] [place] [facility] Outpatient Encounter [id number] JAZIEL SWAN L 06/23 [place] [facility] [place] [facility] Outpatient Encounter [id number] 06/29 [place] [facility] [place] [facility] Outpatient Encounter [id number] ANISHA OCHOA E 07/06 [place] [facility] Outpatient Encounter [id number] 07/13 [place] [facility] QNHP OL DIG ASSMT&MGMT 5-10 [id number] Diagnos is: ICD-10- CM Z51.81 Encount er for therape utic drug level monitor ing<br/ > CHELY MCDONOUGH NAH 07/22 [facility] OFFICE O/P EST MOD 30 MIN [id number] Diagnos is: ICD-10- CM E11.9 Type 2 diabete s mellitu s without complic ations< br/> DEVIN MORALES ER S 08/14 [facility] OFF[facility] O/P EST MOD 30 MIN [id number] [id number] Diagnos is: ICD-10- CM I10 Essenti al (primar y) hyperte nsion<b r/> MARQUISE LINDSAY Y A 08/26 [place] [facility] QNHP OL DIG ASSMT&MGMT 5-10 [id number] Diagnos is: ICD-10- CM Z51.81 Encount er for therape utic drug level monitor ing<br/ > POEPPING,H EATHER L 08/27 [place] [facility] QNHP OL DIG ASSMT&MGMT 5-10 [id number] [id number] Diagnos is: ICD-10- CM Z51.81 Encount er for therape utic drug level monitor ing<br/ > ERNESTINA PATEL TTHEW S 10/27 [facility] Out[facility] Encounter [id number] 11/10 [place] [facility] Social History Combined list of available smoking, tobacco, and other social history from Department of Defense and [facility] facilities. Social History Type Response Date Comment Sour e Tobacco smoking status [facility]-TOBACCO FORMER USER 08/27/2023 [facility] of [facility] MORE [facility]27[facility]2023 [facility] History of tobacco use DC-TOBACCO FORMER USER 05/09/2022 [facility] History of tobacco use DC-TOBACCO FORMER USER 05/30/2021 [facility] History of tobacco use DC-TOBACCO FORMER USER 05/29/2020 [facility] 5 [facility] OR MORE 02/09/2019 [facility] History of tobacco use DC-TOBACCO FORMER USER 04/22/2018 [facility] History of tobacco use FORMER TOBACCO US ER 7Y OR GREATER 04/02/2017 [facility] History of tobacco use FORMER TOBACCO US ER 7Y OR GREATER 04/02/2016 [facility] History of tobacco use FORMER TOBACCO US ER 7Y OR GREATER 04/26/2015 [facility] History of tobacco use FORMER TOBACCO US ER 7Y OR GREATER 05/17/2014 [facility] History of tobacco use FORMER TOBACCO US ER 7Y OR GREATER 09/11/2010 [facility] Plan of Care List of future care activities from Department [facility] facilities. Additional future care activities may be listed in the Assessment and Plan section. Date/Time Care Activity Care Activity Detail Facili ty 12/22/2023 AMBULATORY - NONE AMBULATORY - NONE [facility] 03/09/2024 AMBULATORY - SURGERY AMBULATORY - SURGERY [facility]
--- OUTSIDE RECORDS SUMMARY | 2023-11-13 08:48 | XMS_ITS | Encounter Summary ---
Author Name [place] Address [address] [place] [address] Care Team Providers Care Cold Header Operator Name Role Phone CATIE GAN Primary Care [...] Name Patient's Relationship to Policy Reyez HUMANA [facility] ([facility]) MEDICARE ADVANTAGE [facility] ([facility]) Mar 03, 2018 [id number] [facility] ([facility]) MEDICARE ADVANTAGE [facility] ([facility]) Mar 03, 2021 [id number] FLEX FRAGOSO PATIENT Selected Encounter This section includes the information on record at [place] for the Encounter. Date/Time Encounter Type Encounter Description Reason Provider Source Jan 15, 2023 11:41 AM Outpatient Encounter DERMATOLOGY ICD-10-CM D48.5 Neoplasm of uncertain behavior of skin RAFAEL PAIGE Maria Esther Encounter Template Text not used by [place] Assessments - Encounter Diagnoses This section includes the primary and secondary diagnoses documented for the Encounter. Date/Time Primary/Secondary Diagnosis Diagnosis Name Provider Source Jan 15, 2023 12:16 PM PRIMARY Neoplasm of uncertain behavior of skin RAFAEL PAIGE [facility] Jan 15, 2023 12:16 PM SECONDARY Other atopic dermatitis RAFAEL PAIGE [facility] Plan of Treatment: Future Appointments (+ 6 months) and Future Tests (+/- 45 days) The Plan of Treatment section includes future care activities for the patient from all [place] [facility]. This section includes future appointments and future orders which are active, pending or scheduled. Future Appointments This section includes appointments that were scheduled to occur 6 months from the date of the Encounter, up to a maximum of 20 appointments. The data comes from all [facility] facilities. Appointment Date/Time Appointment Type Appointme nt Facility Name Mar 11, 2023 08:00 AM AMBULATORY - NONE [facility] Mar 11, 2023 09:00 AM AMBULATORY - SURGERY [facility] May 06, 2023 08:00 AM AMBULATORY - NONE [facility] Jun 03, 2023 08:15 AM AMBULATORY NONE [facility] Jun 03, 2023 08:30 AM AMBULATORY NONE [facility] Jun 09, 2023 01:30 PM AMBULATORY - SURGERY [facility] Lab Results: +/- 30 days of the encounter This section includes the Chemistry and Hematology Lab Results on record with [place] for the patient. Radiology Reports and Pathology Reports are provided separately, in subsequent sections. Lab Results This section contains the Chemistry/Hematology Results that were resulted 30 days before or 30 daysafter the date of the Encounter. Date/Time Source Result Type Result - Unit Interpretation Reference Range Comment Jan 14, 2023 07:42 AM [facility] POC INR(COAGUCHEK) Specimen Type: BLOOD No comment entered. Ordering Provider: GUY LINDSAY Report Released Date/Time: Jan 14, 2023 07:47 AM Reporting Lab: [facility] [id number] Performing Lab: [facility] [id number] POC INR(COAGUCHEK) 2.1 {INR} H Jan 14, 2023 07:40 AM [facility] HEMOGLOBIN A1C Specimen Type: BLOOD Comment: Values [...] May 09, 2022 09:23 AM Reporting Lab: [facility] [id number] Performing Lab: [facility] [id number] HEMOGLOBIN A1C 6.2 H 4.0-6.0 Jan 14, 2023 07:40 AM [facility] COMPREHENSIVE METABOLIC PANEL+MG Specimen Type: PLASMA No comment entered. Ordering Provider: LAURA XIAO Report Released Date/Time: May 09, 2022 09:23 AM Reporting Lab: [facility] [id number] Performing Lab: [facility] [id number] CREATININE 0.8 mg/dL 0.7-1.2 UREA NITROGEN 11 [...] 31 U/L <34 .CREAT EGFR(CKD-EPI) >90 >60 Social History: Smoking Status (Most current) and Tobacco Use (All prior to encounter date) This section includes the most current, and the historical, smoking and tobacco- related health factors from the [place] facility where the Encounter took place. Current Smoking Status This section includes the most current smoking, or tobacco-related health factor, from the [place] facility where the Encounter took place. Date/Time Current Smoking Status Comment Geronimo cross May 09, 2022 08:45 AM VA-TOBACCO FORMER USER [facility] Tobacco Use History This section includes a history of the smoking, or tobacco-related health factors, that were collected on or before the date of the Encounter. The data comes from the [place] facility where the Encounter took place. Date/Time Smoking Status/Tobacco Use Comment Naina blantonility May 09, 2022 08:45 AM VA-TOBACCO QUIT 15 YRS OR MORE [facility] May 30, 2021 08:15 AM VA-TOBACCO FORMER USER [facility] May 30, 2021 08:15 AM VA-TOBACCO QUIT 15 YRS OR MORE [facility] May 29, 2020 08:30 AM VA-TOBACCO FORMER USER [facility] May 29, 2020 08:30 AM VA-TOBACCO QUIT 15 YRS OR MORE [facility] Feb 09, 2019 09:07 AM VA-TOBACCO FORMER USER [facility] Feb 09, 2019 09:07 AM VA-TOBACCO QUIT 15 YRS OR MORE [facility] Apr 22, 2018 10:04 AM VA-TOBACCO FORMER USER [facility] Apr 22, 2018 10:04 AM VA-TOBACCO QUIT 15 YRS OR MORE [facility] Apr 02, 2017 09:41 AM FORMER TOBACCO USER 7Y OR GREATE R [facility] Apr 02, 2016 02:38 PM FORMER TOBACCO USER 7Y OR GREATE R [facility] Apr 26, 2015 08:09 AM FORMER TOBACCO USER 7Y OR GREATE R [facility] May 17, 2014 08:12 AM FORMER TOBACCO USER 7Y OR GREATE R [facility] Sep 11, 2010 12:27 PM FORMER TOBACCO USER 7Y OR GREATE R [facility] Encounter Notes: All associated encounter notes This section contains the clinical notes associated to the Encounter. Date/Time Encounter Note(s) Provider Source Jan 15, 2023 01:06 PM ADDENDUM: LOCAL TITLE: Addendum STANDARD TITLE: ADDENDUM DATE OF NOTE: JAN 15, 2023@13:06:57 ENTRY DATE: JAN 15, 2023@13:06:58 AUTHOR: ERIC JESUS EXP COSIGNER: URGENCY: STATUS: COMPLETED Please notify pt of Tele-Derm response. /bryant/ ERIC JESUS APRN, WOOD CRAFTSMAN NURSE PRACTITIONER Signed: 01/15/2023 13:07 Receipt Acknowledged By: 01/15/2023 13:22 /bryant/ ALEX MCGOWAN RN --- Original Document --- 01/15/23 TELEDERMATOLOGY IMAGING REPORT CONSULT: HISTORY: HISTORY: Prior skin history: Yes Have you had a skin cancer before? Basal Cell Carcinoma (BCC), Squamous Cell Carcinoma (SCC) Patient reports no family history of melanoma. Taking new med/supplements: None reported Immunosuppression history: None reported Other significant history: None reported Chief Complaint: non healing lesion on R advent, treated w/LN, recurredAND pruritic, erythematous lesions on neck PROBLEM A LOCATION(S): R advent DURATION: consult states months, pt reports a couple years SYMPTOMS: Ulceration History CHANGES: None TREATMENT: Yes Details: LN2 cryo in May 2022 BIOPSY: No PROBLEM B: LOCATION(S): neck DURATION: 4-5 years SYMPTOMS: Itch, Redness CHANGES: more spots popping up. Pt reports these spots never completely go away TREATMENT: No BIOPSY: No Cloth Finisher's comments: PCP rx'd triamcinolone today. OVERALL CONSULT/IMAGE QUALITY: Fully satisfactory EXAM: A. 14 mm, pearly pink telangiectatic plaque on the right advent. B. Several pink, juicy papules on the neck. No concerning features on dermoscopy. IMPRESSION BASED ON IMAGES AND INFORMATION REVIEWED: PROBLEM A: Diagnosis: Neoplasm uncertain behavior PROBLEM B: Diagnosis: Eczematous dermatitis. Favor Sulzberger Garbe type. RECOMMENDATIONS FOR REFERRING PROVIDER: PROBLEM A: Biopsy: PROBLEM B: Medication: Continue triamcinolone 0.1% ointment twice daily to the lesions on the neck RECOMMENDED FOLLOW-UP: Visit to Dermatology clinic for follow up DAVINA: Jan Cumulative time of review and management: 5 minutes or more I have placed a return to clinic order and CCed the Derm MSA for scheduling # # # # # # # # # # # # # # # # # # # # # # # # # # # # # # # # # # # # Diagnosis: The spot on your forehead needs a biopsy for diagnosis The spots on your neck look like a type of eczema. This can occur with age, or can sometimes be due to new medicines, something coming into contact with the skin, or rarely from another cause. Treatment: We recommend a biopsy in clinic for the lesion on your forehead. I have recommended to your primary care doctor that we continue treating the spots on your neck with triamcinolone 0.1% ointment twice a day until the spots are gone. Follow up: The dermatology schedulers will be calling you to make an appointment to be seen in the dermatology clinic. /es/ RAFAEL PAIGE MD CHIEF DERMATOLOGY Signed: 01/15/2023 12:16 Receipt Acknowledged By: * AWAITING SIGNATURE * JAVIER PARK 01/15/2023 ADDENDUM STATUS: COMPLETED Called and left voicemail to return call to discuss telederm results. /es/ ALEX MCGOWAN RN Signed: 01/15/2023 13:24 ERIC JESUS [facility] Jan 15, 2023 11:41 AM TELEIMAGING REPORT : LOCAL TITLE: TELEDERMATOLOGY IMAGING REPORT CONSULT STANDARD TITLE: TELEIMAGING REPORT DATE OF NOTE: JAN 15, 2023@11:41 ENTRY DATE: JAN 15, 2023@11:42:03 AUTHOR: RAFAEL PAIGE EXP COSIGNER: URGENCY: STATUS: COMPLETED TELEDERMATOLOGY IMAGING REPORT CONSULT Has ADDENDA HISTORY: HISTORY: Prior skin history: Yes Have you had a skin cancer before? Basal Cell Carcinoma (BCC), Squamous Cell Carcinoma (SCC) Patient reports no family history of melanoma. Taking new med/supplements: None reported Immunosuppression history: None reported Other significant history: None reported Chief Complaint: non healing lesion on R advent, treated w/LN, recurredAND pruritic, erythematous lesions on neck PROBLEM A LOCATION(S): R advent DURATION: consult states months, pt reports a couple years SYMPTOMS: Ulceration History CHANGES: None TREATMENT: Yes Details: LN2 cryo in May 2022 BIOPSY: No PROBLEM B: LOCATION(S): neck DURATION: 4-5 years SYMPTOMS: Itch, Redness CHANGES: more spots popping up. Pt reports these spots never completely go away TREATMENT: No BIOPSY: No Cloth Finisher's comments: PCP rx'd triamcinolone today. OVERALL CONSULT/IMAGE QUALITY: Fully satisfactory EXAM: A. 14 mm, pearly pink telangiectatic plaque on the right advent. B. Several pink, juicy papules on the neck. No concerning features on dermoscopy. IMPRESSION BASED ON IMAGES AND INFORMATION REVIEWED: PROBLEM A: Diagnosis: Neoplasm uncertain behavior PROBLEM B: Diagnosis: Eczematous dermatitis. Favor Sulzberger Garbe type. RECOMMENDATIONS FOR REFERRING PROVIDER: PROBLEM A: Biopsy: PROBLEM B: Medication: Continue triamcinolone 0.1% ointment twice daily to the lesions on the neck RECOMMENDED FOLLOW-UP: Visit to Dermatology clinic for follow up DAVINA: Jan Cumulative time of review and management: 5 minutes or more I have placed a return to clinic order and CCed the Derm MSA for scheduling # # # # # # # # # # # # # # # # # # # # # # # # # # # # # # # # # # # # Diagnosis: The spot on your forehead needs a biopsy for diagnosis The spots on your neck look like a type of eczema. This can occur with age, or can sometimes be due to new medicines, something coming into contact with the skin, or rarely from another cause. Treatment: We recommend a biopsy in clinic for the lesion on your forehead. I have recommended to your primary care doctor that we continue treating the spots on your neck with triamcinolone 0.1% ointment twice a day until the spots are gone. Follow up: The dermatology schedulers will be calling you to make an appointment to be seen in the dermatology clinic. /es/ RAFAEL PAIGE MD CHIEF DERMATOLOGY Signed: 01/15/2023 12:16 Receipt Acknowledged By: 01/18/2023 09:51 /bryant/ MELONIE KEVIN MSA LEAD THREAD SINGER 01/15/2023 ADDENDUM STATUS: COMPLETED Please notify pt of Tele-Derm response. /es/ ERIC JESUS APRN, WOOD CRAFTSMAN NURSE PRACTITIONER Signed: 01/15/2023 13:07 Receipt Acknowledged By: 01/15/2023 13:22 /bryant/ ALEX MCGOWAN RN 01/15/2023 ADDENDUM STATUS: COMPLETED Called and left voicemail to return call to discuss telederm results. /bryant/ ALEX MCGOWAN RN Signed: 01/15/2023 13:24 RAFAEL PAIGE [facility]
--- OUTSIDE RECORDS SUMMARY | 2023-11-13 08:48 | XMS_ITS | Encounter Summary ---
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 Name Role Phone CATIE GAN Primary Care [...] Name Patient's Relationship to Policy Reyez HUMANA [facility] ([facility]) MEDICARE ADVANTAGE [facility] ([facility]) Mar 03, 2018 [id number] FLEX FRAGOSO PATIENT [facility] ([facility]) MEDICARE ADVANTAGE [facility] ([facility]) Mar 03, 2021 [id number] FLEX FRAGOSO PATIENT Selected Encounter This section includes the information on record at [place] for the Encounter. 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 Date/Time Primary/Secondary Diagnosis Diagnosis Name Provider Source May 07, 2023 08:40 AM PRIMARY [facility] (current) use of anticoagulants MARISOL VELASCO Shabana [facility] May 07, 2023 08:40 AM SECONDARY Unspecified atrial fibrillation RODMARISOL Shabana [facility] Plan of Treatment: Future Appointments (+ 6 months) and Future Tests (+/- 45 days) The Plan of Treatment section includes future care activities for the patient from all [place] [facility]. This section includes future appointments and future orders which are active, pending or scheduled. Future Appointments This section includes appointments that were scheduled to occur 6 months from the date of the Encounter, up to a maximum of 20 appointments. The data comes from all [place] treatment facilities. Appointment Date/Time Appointment Type Appointme nt Facility Name Jun 03, 2023 08:15 AM AM[place]ULATORY - NONE [place] [facility] Jun 03, 2023 08:30 AM [place]ATORY [place] [facility] Jun 09, 2023 01:30 PM AMBUL[facility]ORY [facility] SUR[facility] July 22, 2023 08:15 AM AM[place]ULATORY - [place] [facility] Aug 15, 2023 08:00 AM AMBULATORY - SURGERY [facility] Aug 27, 2023 08:00 AM [place] [facility] Aug 27, 2023 08:45 AM AM[place]ULATORY - [place] [facility] Aug 27, 2023 09:00 AM [place]ORY [place] [facility] Oct 27, 2023 08:00 [facility] Lab Results: +/- 30 days of [...] Result - Unit Interpretation Reference Range Comment Jun 03, 2023 08:01 AM [facility] PT/INR(ANTICOAG) Specimen Type: PLASMA No comment entered. Ordering Provider: DYLON MCCRAY Report Released Date/Time: Mar 20, 2023 01:50 PM Reporting Lab: [facility] [id number] Performing Lab: [facility] [id number] .INR 2.2 H 0.8-1.1 .PT 26.5 s H 9.4-12.5 Jun 03, 2023 08:01 AM [facility] CBC Specimen Type: BLOOD No comment entered. Ordering Provider: MARISOL VELASCO Report Released Date/Time: May 07, 2023 08:55 AM Reporting Lab: [facility] [id number] Performing Lab: [facility] [id number] WBC 9.60 10*3/uL 4.0-11.0 RBC 4.67 10*6/uL 4.6-6.2 HGB 15.4 g/dL 13.5-17.9 HCT 44.8 41-54 MCV 95.9 fL 80-100 MCH 33.0 pg 27-33 MCHC 34.4 g/dL 32.0-37.5 PLT 254 10*3/uL 150-400 MPV 9.7 fL 7.4-10.4 RDW 11.9 11.5-14.5 May 06, 2023 07:55 AM [facility] POC INR(COAGUCHEK) Specimen Type: BLOOD No comment entered. Ordering Provider: GUY LINDSAY Report Released Date/Time: May 06, 2023 07:58 AM Reporting Lab: [facility] [id number] Performing Lab: [facility] [id number] POC INR(COAGU CHEK) 2.6 {INR} H 0.8-1.1 Social History: Smoking Status [...] 09, 2022 08:45 AM VA-TOBACCO FORMER USER [facility] Tobacco Use History This section includes a history of the smoking, or tobacco-related health factors, that were collected on or before the date of the Encounter. The data comes from the [place] facility where the Encounter took place. Date/Time Smoking Status/Tobacco Use Comment F acility May 09, 2022 08:45 AM VA-TOBACCO QUIT 15 YRS OR MORE [facility] May 30, 2021 08:15 AM VA-TOBACCO FORMER USER [facility] May 30, 2021 08:15 AM VA-TOBACCO QUIT 15 YRS OR MORE [facility] May 29, 2020 08:30 AM VA-TOBACCO FORMER USER [facility] May 29, 2020 08:30 AM VA-TOBACCO QUIT 15 YRS OR MORE [facility] Feb 09, 2019 09:07 AM VA-TOBACCO FORMER USER [facility] Feb 09, 2019 09:07 AM VA-TOBACCO QUIT 15 YRS OR MORE [facility] Apr 22, 2018 10:04 AM VA-TOBACCO FORMER USER [facility] Apr 22, 2018 10:04 AM VA-TOBACCO QUIT 15 YRS OR MORE [facility] Apr 02, 2017 09:41 AM FORMER TOBACCO USER 7Y OR GREATE R [facility] Apr 02, 2016 02:38 PM FORMER TOBACCO USER 7Y OR GREATE R [facility] Apr 26, 2015 08:09 AM FORMER TOBACCO USER 7Y OR GREATE R [facility] May 17, 2014 08:12 AM FORMER TOBACCO USER 7Y OR GREATE R [facility] Sep 11, 2010 12:27 PM FORMER TOBACCO USER 7Y OR GREATE R [facility] Encounter Notes: All associated encounter notes This section contains the clinical notes associated to the Encounter. Date/Time Encounter Note(s) Provider Source May 07, 2023 08:30 AM PHARMACY OUTPATIEN T MEDICATION MGT NOTE: LOCAL TITLE: PHARMACY ANTICOAGULATION CLINIC F/U STANDARD TITLE: PHARMACY OUTPATIENT MEDICATION MGT NOTE DATE OF NOTE: MAY 07, 2023@08:30 ENTRY DATE: MAY 07, 2023@08:30:39 AUTHOR: MARISOL VELASCO EXP COSIGNER: URGENCY: STATUS: COMPLETED PHARMACY ANTICOAGULATION CLINIC F/U Has ADDENDA Warfarin indication: A-fib Relevant PMH: - CVA and PFO (repaired in 2000), HTN - Prior major bleeds: None - Prior anticoagulants: None Goal INR range: 2-3 Perioperative interruption history: No bridging previously Date started: 06/02/11 Anticipated duration: Lifelong - CHADS2-VASC = 5 (age, CVA, HTN) = moderate risk - HAS-BLED = 3 (age, CVA, ASA) = high risk DOAC Assessment (05/20/19: Pt declined, stable pattern. SUBJECTIVE/OBJECTIVE: Assessment completed as chart review; pt was not interviewed. Warfarin dose: 2.5mg daily (17.5mg/wk); PM Collection DT Spec INR mg in last 7 days 05/06/2023 07:55 BLOOD 2.6 17.5 letter 03/11/2023 07:48 BLOOD 2.5 17.5 01/14/2023 07:42 BLOOD 2.1 17.5 letter 11/19/2022 08:16 BLOOD 2.4 17.5 letter 09/25/2022 13:53 BLOOD 3.0 17.5 letter + VMs 07/31/2022 12:41 BLOOD 2.0 17.5 letter 06/06/2022 07:57 BLOOD 2.3 17.5 letter 05/09/2022 07:52 BLOOD 3.0 17.5 letter Other Recent Labs Collection DT Spec WBC HGB HCT PLT MCV NEUT LYMPHS 05/09/2022 07:45 BLOOD 7.84 14.4 42.8 224 96.4 05/09/2022 07:45 BLOOD 7.91 14.4 42.7 235 96.4 35.4 49.3 ASSESSMENT/PLAN: Therapeutic INR. Reassess in 8 weeks. - Warfarin dose: CONTINUE: 2.5mg daily (17.5mg/wk) - Next INR/CBC: 07/01/23 @[facility] POC @8am - Rx reviewed - Letter sent Time Spent: 10 Minutes /bryant/ MARISOL VELASCO PharmD PHARMACIST Signed: 05/07/2023 08:53 05/12/2023 ADDENDUM STATUS: COMPLETED VM from pt requesting next INR 06/03/23 with other labs (dermatology has INR ordered pre MOHS). Will r/s. Attempted to reach pt by phone. LM confirming r/s as he requested. - Next INR/CBC: 06/03/23 @[facility] POC @8am *dermatology has venous INR ordered already, will add on CBC /es/ SARAH BOO PHARMACIST Signed: 05/12/2023 09:36 MARISOL VELASCO [facility]
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
--- OUTSIDE RECORDS SUMMARY | 2023-11-13 08:49 | XMS_ITS | Referral Summary ---
Author Organization [facility] Address [address] [place] [id number] Care Team Providers Care Demonstrator Knitting Name Role Phone Junior Woods M.D. Primary Care Denzel zepeda Source Comments Patient records contain information from all sites at [facility]. For routine questions regarding patient records, call [phone] during business hours, M-F 8:00 AM - 5:00 PM Central Time. Record requests for emergency care only can be directed to [phone] at any time.[facility] Encounters Date Type Department Care Team Description 11/11/2023 9:30 AM CDT - 11/11/2023 11:59 PM CDT Hospital Encounter Department of Laboratory Medicine in [address] [phone] Junior Woods M.B.B.S., M.D. Atrial Fibrillation Unspecified (HCC); Hypertension Essential Primary; Hyperlipidemia; Impaired Fasting Glucose Discharge Disposition: Home or Self Care 11/11/2023 8:30 AM CDT Comprehensive Visit Department of Family Medicine, [facility], in [address] [phone] Junior Woods M.B.B.S., M.D. Atrial Fibrillation Unspecified (HCC) (Primary Dx); Hypertension Essential Primary; Peripheral Vascular Disease (HCC); Apnea Sleep Obstructive; Hyperlipidemia; Impaired Fasting Glucose 08/28/2023 Clinical Communication Department of Family Medicine, [facility], in [place], [place] [address] [facility] [place] [phone] Junior Woods M.B.B.S., M.D. Hypertension - Quality Improvement from Last 3 Months Allergies No known active allergies Medications Medication Sig Dispensed Refills Start Date End Date Status amoxicillin (for_AMOXIL) 500 mg capsule Take 4 capsules by mouth See Admin Instructions. Prior to dental appointments 03/26/2011 Active MULTIVITAMIN ORAL Take 1 tablet by mouth every morning. 07/14/2009 Active PSYLLIUM SEED, WITH SUGAR, (PSYLLIUM ORAL) Take by mouth daily. 07/14/2009 Active acetaminophen (TYLENOL) 500 mg tablet Take 1,000 mg by mouth as needed. 09/07/2015 Active triamcinolone (KENALOG) 0.1 % cream APPLY THIN LAYER TOPICALLY TWICE A DAY FOR RASH ON NECK 01/14/2023 Active lisinopriL 10 mg tabletIndications :Hypertension Essential Primary Take 1 tablet (10 mg total) by mouth daily. 90 tablet 3 11/11/2023 5 Active metoprolol tartrate (Lopressor) 100 mg tabletIndications :Hypertension Essential Primary Take 1 tablet (100 mg total) by mouth 2 (two) times a day. 180 tablet 3 11/11/2023 5 Active pravastatin (PravachoL) 80 mg tabletIndications :Hyperlipidemia Take 1 tablet (80 mg total) by mouth at bedtime. 90 tablet 3 11/11/2023 5 Active triamterene-hydro CHLOROthiazide (Maxzide) 75-50 mg per tabletIndications :Hypertension Essential Primary Take 1 tablet by mouth every morning. 90 tablet 3 11/11/2023 5 Active warfarin (Jantoven) 5 mg tabletIndications :Atrial Fibrillation Unspecified (HCC) Take as directed per After Visit Summary. 100 tablet 3 11/11/2023 Active metoprolol tartrate (LOPRESSOR) 100 mg tablet Take 1 tablet by mouth 2 (two) times a day. 09/21/2010 4 Discontinue d(Reorder) pravastatin (for_PRAVACHOL) 80 mg tablet Take 1 tablet by mouth at bedtime. 09/07/2015 4 Discontinue d(Reorder) triamterene-hydro CHLOROthiazide (for_MAXZIDE) 75-50 mg per tablet Take 1 tablet by mouth every morning. 09/11/2015 4 Discontinue d(Reorder) warfarin (for_COUMADIN) 5 mg tablet warfarin 5 mg oral tablet See Instructions, 1/2 tab (2.5mg) daily per mouth PHARMACY - NO REFILLS NEEDED AT THIS TIME, 45 each 07/10/2011 4 Discontinue d(Reorder) zolpidem (AMBIEN) 10 mg tablet TAKE ONE TABLET BY MOUTH ONE TIME DAILY AT BEDTIME NEEDED FOR SLEEP 30 tablet 5 12/26/2020 4 Discontinue d(Therapy completed) lisinopriL (PRINIVIL,ZESTRIL ) 5 mg tabletIndications :Hypertension Essential Primary Take 1 tablet (5 mg total) by mouth daily. 30 tablet 2 01/10/2021 4 Discontinue d(Dose adjustment) lisinopriL 10 mg tablet Take 10 mg by mouth daily. 08/27/2023 4 Discontinue d(Reorder) Active Problems Patient Care Coordination No te Formatting of this note migh t be different from the original. 10/07/2016- Release of information signed for patient's spouse, Ynes. This will be good for life unless the patient would chose to revoke it. 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) Anticoagulant Treatment 10/2012 Dilatation Ascending Aorta 06/23/2011 Overview (07/23/2016): Ascending aorta dilatation, 40 mm at mid level Atrial Fibrillation Unspecified 05/01/2011 Bradycardia Sinus 08/22/2010 Overview (07/23/2016): Sinus bradycardia Peripheral Vascular Disease 08/22/2010 Overview (07/23/2016): Peripheral vascular disease, Mild Apnea Sleep Obstructive 08/22/2010 Hypertension Essential Primary 07/17/2009 Overview (10/09/2017): Hypertension Loss Hearing Sensorineural Bilateral 04/25/2009 Immunizations Name Administration Dates Next Due DT, Pediatric 10/16/1999 DTaP (Infanrix, Tripedia) 09/11/2010 H1N1 All Forms 02/21/2009 HZV (ZOSTAVAX) 10/01/2013,12/30/2011 Influenza TIV (IM) 11/02/2015, 4,12/16/2011,2007 Influenza high dose QV(65 ye ars or older) (PF) 01/14/2023 Influenza, Injectable, Quadrivalent 12/05/2020 Influenza, Quadrivalent, Adj uvanted, Preservative Free 11/29/2021 Influenza, Seasonal, Injectable 12/16/2011 Influenza, Unspecified 12/01/2014,2012,12/16/2011,2010,12/01/2010,12/01/2009,11/17/2008 PCV13 08/29/2014 PPSV23 09/11/2010,01/05/2001 Pneumococcal, Unspecified 09/11/2010,01/05/2001 RZV (SHINGRIX) 06/24/2018,04/22/2018 SARS-COV-2 (COVID-19) - PFIZ ER (Discontinued)(12 years or older) 12/05/2020,05/10/2020,04/19/2020 SARS-COV-2 (COVID-19) - PFIZ ER BIVALENT TS(Discontinued)(12 YEARS OR OLDER) 11/29/2021 SARS-COV-2 (COVID-19) - PFIZ ER TS(Discontinued)(12 years or older) 08/01/2021 Td, (Adult) Unspecified 05/29/2020 Tdap 09/11/2010 influenza trivalent high dos e (HD)(PF) 12/05/2020,11/16/2019,11/01/2018,2017,12/03/2016,12/15/2015,12/07/2014,0 11/26/2013 influenza trivalent vaccine (6 months and older)(PF) 12/31/2017 influenza vaccine QV(FLUBLOK ) (18 years or older) (PF) 12/03/2018 influenza vaccine quad (FLUZONE/FLUARIX) (6 months and older)(PF) 11/16/2019 Social History Tobacco Use Types Packs/Day Years Used Date Smoking Tobacco: Former Cigarettes 1977 Pipe Smokeless Tobacco: Never Tobacco Cessation:Counseling Given: Not Answered Alcohol Use Standard Drinks/Week Comments Yes 14 (1 standard drink = 0.6 oz pu re alcohol) 2 bottles beer daily Humiliation, Afraid, Rape, and Kick questionnair e Answer Date Recorded Within the last year, have y ou been afraid of your partner or ex-partner? No 11/21/2020 Within the last year, have y ou been humiliated or emotionally abused in other ways by your partner or ex-partner? No Within the last year, have y ou been kicked, hit, slapped, or otherwise physically hurt by your partner or ex-partner? No 11/21/2020 Within the last year, have y ou been raped or forced to have any kind of sexual activity by your partner or ex-partner? No 11/21/2020 Social Connection and Isolation Panel [NHANES] A nswer Date Recorded In a typical week, how many times do you talk on the phone with family, friends, or neighbors? Once a week 11/21/2020 How often do you get together with friends or re latives? Once a week 11/21/2020 Attends [employer]ism Services Not on file 11/21 Do you belong to any clubs o r organizations such as latter-day groups, unions, fraternal or athletic groups, or school groups? No 11/21/2020 How often do you attend meet ings of the clubs or organizations you belong to? Never 11/21/2020 Are you , , di vorced, , never , or living with a partner? 11/21/2020 AUDIT-C Answer Date Recorded Q1: How often do you have a drink containing alc ohol? 2-3 times a week 11/21/2020 Q2: How many drinks containi ng alcohol do you have on a typical day when you are drinking? 1 or 2 11/21/2020 Q3: How often do you have si x or more drinks on one occasion? Never 11/21/2020 Overall Financial Resource Strain (CARDIA) Answe r Date Recorded How hard is it for you to pa y for the very basics like food, housing, medical care, and heating? Not very hard 11/21/2020 PHQ-2 Answer Date Recorded PHQ-2 Score 0 03/12/2023 [facility] - Occupational Stress Questionnaire Answer Date Recorded Do you feel stress - tense, restless, nervous, or anxious, or unable to sleep at night because your mind is troubled all the time - these days? Not at all 11/21/2020 Exercise Vital Sign Answer Date Recorde d On average, how many days pe r week do you engage in moderate to strenuous exercise (like a brisk walk)? 2 days 11/21/2020 On average, how many minutes do you engage in exercise at this level? 30 min 11/21/2020 Hunger Vital Sign Answer Date Recorded Within the past 12 months, y ou worried that your food would run out before you got the money to buy more. Never true 11/22/19 21 Within the past 12 months, t he food you bought just didn't last and you didn't have money to get more. Never true 11/21/2020 PRAPARE - Transportation Answer Date Re corded In the past 12 months, has l ack of transportation kept you from medical appointments or from getting medications? No 11/02 In the past 12 months, has l ack of transportation kept you from meetings, work, or from getting things needed for daily living? No 11/21/2020 Housing Stability Vital Sign Answer Fortunato e Recorded In the last 12 months, was t here a time when you were not able to pay the mortgage or rent on time? No 11/21/2020 In the last 12 months, how many places have you lived? 1 11/21/2020 In the last 12 months, was t here a time when you did not have a steady place to sleep or slept in a long term (including now)? No 11/21/2020 Nutrition Answer Date Recorded On average, how many serving s of fruits and vegetables do you eat per day (serving size is equal to 1 cup or approximately the size of a tennis ball)? 2-3 11/21/2020 Dental Answer Date Recorded Dental: Regular Dentist Yes 03/05/19 Employment Answer Date Recorded Employment status Retired 11/21/2020 Education Answer Date Recorded What is the highest level of school you have completed or the highest degree you have received? Some college, no degree 11/21/2020 Sex and Gender Information Value Date Recorded Sex Assigned at Not on file Gender Identity Not on file Sexual Orientation Not on file Last Filed Vital Signs Vital Sign Reading Time Taken Comments Blood Pressure 135/63 11/11/2023 8:24 AM CDT Pulse 43 11/11/2023 8:24 AM CDT Temperature 35.5 ??C (95.9 ??F) 11/11/2023 8 :18 AM CDT Respiratory Rate 16 11/11/2023 8:18 AM CDT Oxygen Saturation 98% 03/12/2023 11: 37 AM DUCTFIXING PLUMBER room air Inhaled Oxygen Concentration - - Weight 87.6 kg (193 lb 1.9 oz) 11/11/2023 8:18 AM CDT Height 170 cm (5' 6.93) 11/11/2023 8:1 8 AM CDT with shoes on Body Mass Index 30.31 11/11/2023 8:18 AM CDT Plan of Treatment Not on file Medical Devices Implanted Type Area Supervisor Order Takers Device Identifier Shelf Expiration Date Model / Serial / Lot [place] [employer] Fuzzy 1 X 1 [facility] [id number] Implanted:Qty: 1 on 12/24/2000 Mesh or Patch Impra Description:Device Manufactu rer - Impra. Device Status Text - [id number]. Procedures Procedure Name Priority Date/Time Associated Diagnosis Comments HEMOGLOBIN A1C, B Routine 11/11/2023 9:4 5 AM CDT Impaired Fasting Glucose CBC WITH DIFFERENTIAL, B Routine 11/11/2023 9:45 AM CDT Hypertension Essential Primary LIPID PANEL, S Routine 11/11/2023 9:45 AM CDT Hyperlipidemia BASIC METABOLIC PANEL, S/P Routine 11/11/2023 9:45 AM CDT Atrial Fibrillation Unspecified (HCC) Hypertension Essential Primary HCV AB SCRN W/REFLEX TO HCV PCR, S Routine 10/07/2016 11:48 AM CDT from Last 3 Months or Most Recently Relevant to Health Maintenance Results * (ABNORMAL) Lipid Panel (11/11/2023 9:45 AM CDT) Triglycerides 157(H) mg/dL 11/11/2023 2:39 PM CDT OWAT Comment: ----REFERENCE VALUE---- Normal: <150 mg/dL Borderline High: 150-199 mg/dL High: 200-499 mg/dL Very High: > or =500 mg/dL Cholesterol, Total 176 mg/dL 2023 2:39 PM CDT OWAT Comment: ----REFERENCE VALUE---- Desirable: < 200 mg/dL Borderline High: 200 - 239 mg/dL High: > or = 240 mg/dL Cholesterol, LDL, Calculated 101 mg/dL 11/11/2023 2:39 PM CDT OWAT Comment: ----REFERENCE VALUE---- Desirable: <100 mg/dL Above Desirable: 100-129 mg/dL Borderline High: 130-159 mg/dL High: 160-189 mg/dL Very High: >=190 mg/dL ----ADDITIONAL INFORMATION---- LDL cholesterol calculated using the Rangel/NIH equation. Cholesterol, HDL 48 >=40 mg/dL 11/11/19 2:39 PM CDT OWAT Cholesterol, Non-HDL, Calculated 128 mg/dL 11/11/2023 2:39 PM CDT OWAT Comment: ----REFERENCE VALUE---- Desirable: <130 mg/dL Above Desirable: 130-159 mg/dL Borderline High: 160-189 mg/dL High: 190-219 mg/dL Very High: > or =220 mg/dL Fasting (8 HR or more) Yes 11/11/2023 9:45 AM CDT OWAT Blood (Blood, Venous) 11/11/2023 9:45 AM CDT 11/11/2023 1:53 PM CDT Junior Shah M.D. LAB BLO OD ADD-ON [facility] [address] [place] [address], [facility] OWAT [facility] [place] [address] [place] [address] * (ABNORMAL) CBC with Differential, Blood (11/11/2023 9:45 AM CDT) Hemoglobin 14.2 13.2 - 16.6 g/dL 11/11/2023 9:54 AM CDT FB60 Hematocrit 41.3 38.3 - 48.6 % 11/11/2023 9:54 AM CDT FB60 Erythrocytes 4.36 4.35 - 5.65 x10(12)/L 11/11/2023 9:54 AM CDT FB60 MCV 94.7 78.2 - 97.9 fL 11/11/2023 9:54 AM CDT FB60 RBC Distrib Width 11.9 11.8 - 14.5 % 11/11/2023 9:54 AM CDT FB60 Platelet Count 217 135 - 317 x10(9)/L 11/11/2023 9:54 AM CDT FB60 Leukocytes 8.0 3.4 - 9.6 x10(9)/L 11/11/2023 9:54 AM CDT FB60 Neutrophils 3.58 1.56 - 6.45 x10(9)/L 11/11/2023 9:54 AM CDT FB60 Lymphocytes 3.24(H) 0.95 - 3.07 x10(9)/L 11/11/2023 9:54 AM CDT FB60 Monocytes 0.87(H) 0.26 - 0.81 x10(9)/L 11/11/2023 9:54 AM CDT FB60 Eosinophils 0.29 0.03 - 0.48 x10(9)/L 11/11/2023 9:54 AM CDT FB60 Basophils <0.04 0.01 - 0.08 x10(9)/L 11/11/2023 9:54 AM CDT FB60 Blood (Blood, Venous) 11/11/2023 9:45 AM CDT 11/11/2023 9:46 AM CDT Junior Shah M.D. LAB BLO OD ADD-ON [facility] [address] [place] [address], [facility] FB60 [facility] [place] [address] [place] [address] * (ABNORMAL) Hemoglobin A1c (11/11/2023 9:45 AM CDT) Hemoglobin A1c, B 6.5(H) 4.2 - 5.6 % 11/11/2023 2:21 PM CDT OWAT Comment: Hemoglobin A1c values greater than or equal to 6.5 percent are diagnostic for diabetes mellitus. ??Diagnosis should be confirmed by repeat testing. ??In diabetic patients, HbA1c goals should be discussed with healthcare provider. Blood (Blood, Venous) 11/11/2023 9:45 AM CDT 11/11/2023 1:53 PM CDT Junior Shah M.D. LAB BLO OD ADD-ON [facility] [address] [place] [address], [place] OWAT [facility] [place] [address] [place] [address] * Basic Metabolic Panel (11/11/2023 9:45 AM CDT) Potassium, P 4.4 3.6 - 5.2 mmol/L 11/11/2023 2:39 PM CDT OWAT Sodium, P 139 135 - 145 mmol/L 11/11/2023 2:39 PM CDT OWAT Chloride, P 100 98 - 107 mmol/L 11/11/2023 2:39 PM CDT OWAT Bicarbonate, P 27 22 - 29 mmol/L 11/11/2023 2:39 PM CDT OWAT Anion Gap, P 12 7 - 15 11/11/2023 2:39 PM CDT OWAT BUN (Blood Urea Nitrogen), P 14 8 - 24 mg/dL 11/11/2023 2:39 PM CDT OWAT Creatinine 0.80 0.74 - 1.35 mg/dL 11/11/2023 2:39 PM CDT OWAT Estimated GFR (eGFR) >90 >=60 mL/min/BSA 11/11/2023 2:39 PM CDT OWAT Comment: Estimated GFR calculated using the 2020 CKD_EPI creatinine equation. Calcium, Total, P 9.6 8.8 - 10.2 mg/dL 11/11/2023 2:39 PM CDT OWAT Glucose, P 120 70 - 140 mg/dL 11/11/2023 2:39 PM CDT OWAT Blood (Blood, Venous) 11/11/2023 9:45 AM CDT 11/11/2023 1:53 PM CDT Junior Shah M.D. LAB BLO OD ADD-ON [facility] [address] [place] [address], [place] OWAT [facility] [place] [address] [place] [address] * HCV AB Scrn w/Reflex to HCV PCR, S (10/07/2016 11:48 AM CDT) HXHCV Ab [facility] Negative Negative POWERCHART Comment: Nszxsf-[id number]-[id number] ratio is <1.00. Test Performed by: [facility] - [address] [address] Blood 10/07/2016 11:4 8 AM CDT Rodolfo Jimenez M.D. 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 See document viewer. Care Teams Demonstrator Knitting Relationship Specialty Start Date End Date Junior Woods M.B.BBebetoSBebeto, M.Yeimy. [address] [place] [address] NORMA Ramirez [phone] PCP - General Family Medicine 08/13/19
--- OUTSIDE RECORDS SUMMARY | 2023-11-13 08:49 | XMS_ITS | Clinical Summary ---
Author Organization [facility] Address [address] [place] [address] Care Team Providers Care Supervisor Tower Name Role Phone Junior Woods M.D. Primary Care Denzel zepeda Source Comments Patient records contain information from all sites at [facility]. For routine questions regarding patient records, call [phone] during business hours, M-F 8:00 AM - 5:00 PM Central Time. Record requests for emergency care only can be directed to [phone] at any time.[facility] Allergies No known active allergies Medications Medication [...] by mouth daily. 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) Anticoagulant Treatment 10/2012 Dilatation Ascending Aorta 06/23/2011 Overview (07/23/2016): Ascending aorta dilatation, 40 mm at mid level Atrial Fibrillation Unspecified 05/01/2011 Bradycardia Sinus 08/22/2010 Overview (07/23/2016): Sinus bradycardia Peripheral Vascular Disease 08/22/2010 Overview (07/23/2016): Peripheral vascular disease, Mild Apnea Sleep Obstructive 08/22/2010 Hypertension Essential Primary 07/17/2009 Overview (10/09/2017): Hypertension Loss Hearing Sensorineural Bilateral 04/25/2009 Encounters Date Type Department Care Team Description 11/11/2023 9:30 AM CDT - 11/11/2023 11:59 PM CDT Hospital Encounter Department of Laboratory Medicine in [address] [address] Junior Woods M.Rufino.B.SBebeto, M.D. Atrial Fibrillation Unspecified (HCC); Hypertension Essential Primary; Hyperlipidemia; Impaired Fasting Glucose Discharge Disposition: Home or Self Care 11/11/2023 8:30 AM CDT Comprehensive Visit Department of Family Medicine, [facility], in [address] [address] Junior Woods M.B.B.S., M.D. Atrial Fibrillation Unspecified (HCC) (Primary Dx); Hypertension Essential Primary; Peripheral Vascular Disease (HCC); Apnea Sleep Obstructive; Hyperlipidemia; Impaired Fasting Glucose 08/28/2023 Clinical Communication Department of Family Medicine, [facility], in [place] [address] [address] [place] [address] Junior Woods M.B.B.S., M.D. Hypertension - Quality Improvement from Last 3 Months Immunizations Name Administration Dates Next Due DT, [...] quad (FLUZONE/FLUARIX) (6 months and older)(PF) 11/16/2019 Family History Medical History Relation Name Comments Cataracts Brother Diabetes Brother Hearing loss Brother Hyperlipidemia Brother Hypertension Brother Coronary artery disease Father Hearing loss Father Heart attack Father Hypertension Father Alzheimer's disease Mother Dementia Mother Hearing loss Mother Hypertension Mother Cataracts Sister Hyperlipidemia Sister Hypertension Sister Skin cancer Sister Relation Name Status Comments Brother Father (Age 62) Mother Sister Social History Tobacco Use Types Packs/Day Years [...] re latives? Once a week 11/21/2020 Attends Taoist Services Not on file 11/21 Do you belong to any clubs o r organizations such as jewish groups, unions, fraternal or athletic groups, or [...] Answer Date Recorded PHQ-2 Score 0 03/12/2023 [facility] - Occupational [...] place to sleep or slept in a penitentiary (including now)? No 11/21/2020 Nutrition Answer Date [...] Oxygen Saturation 98% 03/12/2023 11: 37 AM JEWEL SAWYER room air Inhaled Oxygen Concentration - - Weight 87.6 kg (193 lb 1.9 oz) 11/11/2023 8:18 AM CDT Height 170 cm (5' 6.93) 11/11/2023 8:1 8 AM CDT with shoes on Body Mass Index 30.31 11/11/2023 8:18 AM CDT Plan of Treatment Health Maintenance Due Date Last Done Comments Visit: Medicare Annual Wellness 1945 Influenza Vaccine (#1) 2023 , 11/29/2021, 12/05/2020, Additional history exists Creatinine Level (Kidney Fun ction Test) 11/10/2024 11/11/2023, 09/17/2022, 10/26/2020, Additional history exists Fasting Glucose for Diabetes Screening 11/10/2024 11/11/2023, 11/11/2023, 03/12/2023, Additional history exists Office Visit for Blood Press ure Check / Re-check 11/10/2024 11/11/2023 Potassium Level 11/10/2024 11/11/2023, 08/31, 05/11/2021, Additional history exists Sodium Level 11/10/2024 11/11/2023, 08/31, 10/26/2020, Additional history exists Visit: Chronic Disease, age 18+ 11/10/2024 DTaP,Tdap,and Td Vaccines (5 - Td or Tdap) 05/29/2030 05/29/2020, 09/11/2010, 09/11/2010, Additional history exists Pneumococcal vaccine (65+ years) Completed 08/29/2014, 09/11/2010, 09/11/2010, Additional history exists Hepatitis C Screening Completed 10/07/2016 Zoster Vaccines Completed 06/24/2018, 04/04, 10/01/2013, Additional history exists Depression Screening (Annual PHQ-2) Completed 03/12/2023, 03/12/2023 Fall Risk Screen (Annual) Completed 03/12/2023 COVID-19 Vaccine Completed 06/03/2023, , 07/31/2022, Additional history exists Medical Devices Implanted Type Area Fuel Cell Repairer Device Identifier Shelf Expiration Date Model / Serial / Lot Shamrock Steve Fuzzy 1 X 1 [facility] - [id number] Implanted:Qty: 1 on 12/24/2000 [...] Junior Shah M.D. LAB BLO OD ADD-ON [facility] [address] [place] [address], [facility] OWAT [facility] [place] [address] [place] [address] * (ABNORMAL) CBC with Differential, Blood (11/11/2023 9:45 AM CDT) [facility] Signature Hemoglobin 14.2 13.2 - 16.6 g/dL 11/11/2023 [...] Junior Shah M.D. LAB BLO OD ADD-ON [facility] [address] [place] [address], [facility] [address] [facility] in [place] [address] [place] [address] * (ABNORMAL) Hemoglobin A1c (11/11/2023 9:45 AM [...] Junior Shah M.D. LAB BLO OD ADD-ON [facility] [address] [place] [address], [place] [facility] [facility] [place] [address] [place] [address] * Basic Metabolic Panel (11/11/2023 9:45 AM [...] Junior Shah M.D. LAB BLO OD ADD-ON [facility] [address] [place] [address], [facility] OW[facility] in [place] [address] [place] [address] * HCV AB Scrn w/Reflex to HCV PCR, S (10/07/2016 11:48 AM CDT) HXHCV Ab [facility] Negative Negative POWERCHART Comment: Azouue-gs-hcvqst ratio is <1.00. Test Performed by: [address] [address] Blood 10/07/2016 11:4 8 AM CDT Rodolfo Jimenez M.D. 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 See document viewer. Care Teams Supervisor Tower Relationship Specialty Start Date End Date Junior Woods M.B.BBebetoSBebeto, MTaisha. [address] [place] [address] NORMA Ramirez [phone] PCP - General Family Medicine 08/13/19
--- OUTSIDE RECORDS SUMMARY | 2023-11-13 08:49 | XMS_ITS | Clinical Summary ---
Author Organization [facility] Address [place], [place] [address] Care Team Providers Care Match Up Worker Name Role Phone Junior Woods Primary Care Provider Allergies No known active allergies Medications Medication Sig Dispensed Refills Start Date End Date Status METOPROLOL 50 MG TAB Take 100 mg by mouth 2 times daily. 0 Active triamterene-hydrochlo rothiazide, 75-50 mg, (MAXZIDE) 75-50 mg tablet Take by mouth every morning. 0 Active pravastatin (PRAVACHOL) 80 mg tablet take 1 tablet (20 mg) by oral route once daily 0 Active aspirin chewable 81 mg chewable tablet once daily 0 Active MULTIVITAMIN TAB take 1 tablet by oral route once daily with food 0 Active zolpidem (AMBIEN) 10 mg tablet Take 1 tablet by mouth at bedtime if needed. 30 tablet 3 01/01/2010 Active warfarin (COUMADIN) 2.5 mg tablet Take 2.5 mg by mouth once daily. 6 days a wk and 5mg 1 day a wk Active amoxicillin (AMOXIL) 500 mg capsule Take 500 mg by mouth. Takes 4 tabs prior to dental work Active dilTIAZem CR (TIAZAC; TAZTIA XT) 120 mg capsule Take 120 mg by mouth once daily. 04/11/2021 Active lisinopriL (PRINIVIL; ZESTRIL) 5 mg tablet Take 5 mg by mouth once daily. 01/10/2021 Active Active Problems Problem Noted Date Diagnosed Date Sensorineural hearing loss, bilateral 01/30/2009 KASIA 10/2007 AHI-12- positional 02/12/2008 Encounters Date Type Department Care Team Description 10/30/2023 12:30 PM CDT Office Visit [facility] [address] [place] [address] Homer Julien, [place] Hearing Aid 10/30/2023 Travel from Last 3 Months Immunizations Name Administration Dates Next Due COVID-19 vaccine (Pfizer-BioNTech 30mcg/0.3mL) P F, MDV 05/10/2020,04/19/2020 Influenza, IIV3 (Age >=3 years) 12/29/2007 Social History Tobacco Use Types Packs/Day Years Used Date Smoking Tobacco: Former Smokeless Tobacco: Never Alcohol Use Standard Drinks/Week Comments Yes 0 (1 standard drink = 0.6 oz pure alcohol) drinks 2 cocktails per day per hx Sex and Gender Information Value Date Recorded Sex Assigned at Not on file Gender Identity Not on file Sexual Orientation Not on file Obstetrics History Last Filed Vital Signs Vital Sign Reading Time Taken Comments Blood Pressure 125/75 05/11/2021 2:21 PM CRISIS CLINICIAN Pulse 65 05/11/2021 2:21 PM CRISIS CLINICIAN Temperature 36.7 ??C (98.1 ??F) 05/11/2021 1:50 PM CS T Respiratory Rate 20 05/11/2021 2:21 PM CRISIS CLINICIAN Oxygen Saturation 93% 05/11/2021 2:21 PM CRISIS CLINICIAN Inhaled Oxygen Concentration - - Weight 89 kg (196 lb 4.8 oz) 05/11/2021 12:15 PM CRISIS CLINICIAN Height 170.2 cm (5' 7) 05/11/2021 12:15 PM CRISIS CLINICIAN Body Mass Index 30.74 05/11/2021 12:15 PM CRISIS CLINICIAN Plan of Treatment Upcoming Encounters Date Type Department Care Team (Late st Contact Info) Description 11/27/2023 8:30 AM CDT Office Visit [facility] [address] [place] [address] Homer Julien, AuD [address] [place] [phone] Health Maintenance Due Date Last Done Comments Tdap 1955 Depression screening for age 12+ 1956 Hepatitis C screening for ag e 18-79 1962 Tetanus booster 1964 Zoster (shingles) series for age 50+ (1 of 2) 1994 RSV vaccine for adults or (1 - 1-dose 60+ series) 2004 Medicare Wellness for age 65+ 2009 Pneumococcal series for age 65+ (1 of 1 - PCV) 2009 BMI (ht and wt on same day) for age 18+ 05/03/2022 05/03/2021 Influenza for age 65+ 11/02/2023 12/29/2007 COVID-19 vaccine series Completed 06/03/19, 01/14/2023, 07/31/2022, Additional history exists Advance Directives * Full Code (Latest Code Status on File) Date Activated Date Inactivated Comments 08/02/2013 9:19 AM 08/02/2013 2:18 PM Care Teams Match Up Worker Relationship Specialty Start Date End Date Junior Woods MBBS [address] [place] [address] NORMA Ramirez [phone] PCP - General Family Practice 05/11/21
--- OUTSIDE RECORDS SUMMARY | 2023-11-13 08:49 | XMS_ITS | Encounter Summary ---
Author Organization [facility] Address [address] [place] [address] Care Team Providers Care Venereal Disease Investigator Name Role Phone Junior Woods M.D. Primary Care [facility] Encounter Details Date Type Department Care Team (Latest Contact Info) Description 11/11/2023 9:30 AM CDT - 11/11/2023 11:59 PM CDT Hospital Encounter Department of Laboratory Medicine in [place], [place] [address] [place] [address] Junior Woods M.B.B.S., Maria R [address] [place] [address] Atrial Fibrillation Unspecified (HCC); Hypertension Essential Primary; Hyperlipidemia; Impaired Fasting Glucose Discharge Disposition: Home or Self Care Social History Tobacco Use Types Packs/Day Years Used Date Smoking Tobacco: Former Cigarettes 1977 Pipe Smokeless Tobacco: Never Alcohol Use Standard Drinks/Week Comments Yes 13 [...] re latives? Once a week 11/21/2020 Attends [employer] Not on file 11/21 Do you belong to any clubs o r organizations such as adventist groups, unions, fraternal or athletic groups, or [...] Answer Date Recorded PHQ-2 Score 0 03/12/2023 [facility] - Occupational Stress [...] money to buy more. Never true 11/22/19 Within the past 12 months, t he [...] on file Sexual Orientation Not on file documented as of this encounter Medications at Time of Discharge Medication Sig Dispensed Refills Start Date End Date acetaminophen (TYLENOL) 500 mg tablet Take 1,000 mg by mouth as needed. 09/07/2015 amoxicillin (for_AMOXIL) 500 mg capsule Take 4 capsules by mouth See Admin Instructions. Prior to dental appointments 03/26/2011 lisinopriL 10 mg tabletIndications:Hyp ertension Essential Primary Take 1 tablet (10 mg total) by mouth daily. 90 tablet 3 11/11/2023 11/10/2024 metoprolol tartrate (Lopressor) 100 mg tabletIndications:Hyp ertension Essential Primary Take 1 tablet (100 mg total) by mouth 2 (two) times a day. 180 tablet 3 11/11/2023 11/10/2024 MULTIVITAMIN ORAL Take 1 tablet by mouth every morning. 07/14/2009 pravastatin (PravachoL) 80 mg tabletIndications:Hyp erlipidemia Take 1 tablet (80 mg total) by mouth at bedtime. 90 tablet 3 11/11/2023 11/10/2024 PSYLLIUM SEED, WITH SUGAR, (PSYLLIUM ORAL) Take by mouth daily. 07/14/2009 triamcinolone (KENALOG) 0.1 % cream APPLY THIN LAYER TOPICALLY TWICE A DAY FOR RASH ON NECK 01/14/2023 triamterene-hydroCHLO ROthiazide (Maxzide) 75-50 mg per tabletIndications:Hyp ertension Essential Primary Take 1 tablet by mouth every morning. 90 tablet 3 11/11/2023 11/10/2024 warfarin (Jantoven) 5 mg tabletIndications:Atr ial Fibrillation Unspecified (HCC) Take as directed per After Visit Summary. 100 tablet 3 11/11/2023 documented as of this encounter Miscellaneous Notes * Result Encounter Note - Junior Woods M.B.B.S., M.D. - 11/12/2023 5:36 PM CDT Cholesterol is elevated. Cardiovascular risk assessments indicates value to statin therapy as 10 year ASCVD risk score is over 7%. This indicates a greater than 7% chance of having a stroke or heart attack over the next 10 years. Statin medications lower this by stabilizing plaques making these episodes less likely to occur. Some patients cannot tolerate this medication as it causes muscle aches but for the vast majority, this is a safe and appropriate treatment option. I will send a prescription to the pharmacy if he would like to try this. documented in this encounter Plan of Treatment Not on file documented as of this encounter Procedures Procedure Name Priority Date/Time Associated Diagnosis Comments LIPID PANEL, S Routine 11/11/2023 9:45 AM CDT Hyperlipidemia CBC WITH DIFFERENTIAL, B Routine 11/11/2023 9:45 AM CDT Hypertension Essential Primary HEMOGLOBIN A1C, B Routine 11/11/2023 9:4 5 AM CDT Impaired Fasting Glucose BASIC METABOLIC PANEL, S/P Routine 11/11/2023 9:45 AM CDT Atrial Fibrillation Unspecified (HCC) Hypertension Essential Primary documented in this encounter Results * (ABNORMAL) Hemoglobin A1c (11/11/2023 9:45 AM [...] Junior Shah M.D. LAB BLO OD ADD-ON [facility] [address] [place] [address], [facility] OWAT [facility] [place] [address] [place] [address] * (ABNORMAL) CBC with Differential, Blood (11/11/2023 [...] Junior Shah M.D. LAB BLO OD ADD-ON [facility] [address] [place] [address], [facility] [address] [facility] [place] [address] [place] [address] * (ABNORMAL) Lipid Panel (11/11/2023 9:45 AM [...] Junior Shah M.D. LAB BLO OD ADD-ON [facility] [address] [place] [address], [place] OW[facility] [place] [address] [place] [address] * Basic Metabolic Panel (11/11/2023 9:45 AM [...] Junior Shah M.D. LAB BLO OD ADD-ON [facility] [address] [place] [address], [facility] OWAT [facility] [place] [address] [place] [address] documented in this encounter Visit Diagnoses Diagnosis Atrial Fibrillation Unspecified (HCC) Hypertension Essential Primary Hyperlipidemia Impaired Fasting Glucose documented in this encounter Additional Health Concerns Assessment Noted Time PHQ-9 Depression Total Score: 0 10/20/19 19 9:46 AM CDT documented as of this encounter Care Teams Venereal Disease Investigator Relationship Specialty Start Date End Date Junior Woods M.B.B.S., M.D. [address] [place] [address] NORMA Ramirez [phone] PCP - General Family Medicine 08/13/19 documented as of this encounter
--- OUTSIDE RECORDS SUMMARY | 2023-11-13 08:49 | XMS_ITS | Encounter Summary ---
Author Name [facility] Organization [facility] Address [address] [place] [address] Care Team Providers Care Split Leather Department Supervisor Name Role Phone CATIE GAN Primary Care [...] Name Patient's Relationship to Policy Reyez HUMANA [facility] ([facility]) MEDICARE ADVANTAGE [facility] ([facility]) Mar 03, 2018 [id number] FELX FRAGOSO PATIENT [facility] ([facility]) MEDICARE ADVANTAGE [facility] ([facility]) Mar 03, 2021 [id number] FLEX FRAGOSO PATIENT Selected Encounter This section includes the information on record at DC for the Encounter. Date/Time Encounter Type Encounter Description Reason Provider Source Oct 28, 2023 11:23 AM QNHP OL DIG ASSMT&MGMT 5-10 CLINICAL PHARMACY ICD-10-CM Z51.81 Encounter for therapeutic drug level monitoring MARÍA PATEL Maria Esther Encounter Template Text not used by DC Assessments - Encounter Diagnoses This section includes the primary and secondary diagnoses documented for the Encounter. 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 This section includes future appointments and future orders which are active, pending or scheduled. Future Appointments This section includes appointments that were scheduled to occur 6 months from the date of the Encounter, up to a maximum of 20 appointments. The data comes from all [place] treatment facilities. Appointment Date/Time Appointment Type Appointme nt Facility Name Dec 22, 2023 08:00 AM AMBULATORY - NONE [facility] Mar 09, 2024 09:00 AM AMBULATORY - SURGERY [facility] Lab Results: +/- 30 days of the encounter This section includes the Chemistry and Hematology Lab Results on record with DC for the patient. Radiology Reports and Pathology Reports are provided separately, in subsequent sections. Lab Results This section contains the Chemistry/Hematology Results that were resulted 30 days before or 30 daysafter the date of the Encounter. Date/Time Source Result Type Result - Unit Interpretation Reference Range Comment Oct 27, 2023 07:46 AM [facility] POC INR(COAGUCHEK) Specimen Type: BLOOD No comment entered. Ordering Provider: GUY LINDSAY Report Released Date/Time: Oct 27, 2023 07:48 AM Reporting Lab: [facility] [id number] Performing Lab: [facility] [id number] POC INR(COAGU CHEK) 2.3 {INR} H 0.8-1.1 Social History: Smoking Status (Most current) and Tobacco Use (All prior to encounter date) This section includes the most current, and the historical, smoking and tobacco- related health factors from the DC facility where the Encounter took place. Current Smoking Status This section includes the most current smoking, or tobacco-related health factor, from the DC facility where the Encounter took place. Date/Time Current Smoking Status Comment Geronimo cross Aug 27, 2023 08:00 AM VA-TOBACCO FORMER USER [facility] Tobacco Use History This section includes a history of the smoking, or tobacco-related health factors, that were collected on or before the date of the Encounter. The data comes from the DC facility where the Encounter took place. Date/Time Smoking Status/Tobacco Use Comment F acility Aug 27, 2023 08:00 AM VA-TOBACCO QUIT 15 YRS OR MORE [facility] May 09, 2022 08:45 AM VA-TOBACCO FORMER USER [facility] May 09, 2022 08:45 AM VA-TOBACCO QUIT 15 YRS OR MORE [facility] May 30, 2021 08:15 AM VA-TOBACCO FORMER USER [facility] May 30, 2021 08:15 AM VA-TOBACCO QUIT 15 YRS OR MORE [facility] May 29, 2020 08:30 AM VA-TOBACCO FORMER USER [facility] May 29, 2020 08:30 AM VA-TOBACCO QUIT 15 YRS OR MORE [facility] Feb 09, 2019 09:07 AM VA-TOBACCO FORMER USER [facility] Feb 09, 2019 09:07 AM VA-TOBACCO QUIT 15 YRS OR MORE [facility] Apr 22, 2018 10:04 AM VA-TOBACCO FORMER USER [facility] Apr 22, 2018 10:04 AM VA-TOBACCO QUIT 15 YRS OR MORE [facility] Apr 02, 2017 09:41 AM FORMER TOBACCO USER 7Y OR GREATE R [facility] Apr 02, 2016 02:38 PM FORMER TOBACCO USER 7Y OR GREATE R [facility] Apr 26, 2015 08:09 AM FORMER TOBACCO USER 7Y OR GREATE R [facility] May 17, 2014 08:12 AM FORMER TOBACCO USER 7Y OR GREATE R [facility] Sep 11, 2010 12:27 PM FORMER TOBACCO USER 7Y OR GREATE R [facility] Encounter Notes: All associated encounter notes This section contains the clinical notes associated to the Encounter. Date/Time Encounter Note(s) Provider Source Oct 28, 2023 11:23 AM PHARMACY OUTPATIEN T MEDICATION MGT NOTE: LOCAL TITLE: PHARMACY ANTICOAGULATION CLINIC F/U STANDARD TITLE: PHARMACY OUTPATIENT MEDICATION MGT NOTE DATE OF NOTE: OCT 28, 2023@11:23 ENTRY DATE: OCT 28, 2023@11:23:56 AUTHOR: ERNESTO PATEL COSIGNER: URGENCY: STATUS: COMPLETED Warfarin indication: A-fib Relevant PMH: - CVA and PFO (repaired in 2000), HTN - Prior major bleeds: None - Prior anticoagulants: None Goal INR range: 2-3 Perioperative interruption history: No bridging previously Date started: 06/02/11 Anticipated duration: Lifelong - CHADS2-VASC = 5 (age, CVA, HTN) = moderate risk - HAS-BLED = 2 (age, CVA) = Moderate risk DOAC Assessment (05/20/19: Pt declined, stable pattern. SUBJECTIVE/OBJECTIVE: Assessment completed as chart review; pt was not interviewed. Warfarin dose: 2.5mg daily (17.5mg/wk); PM Collection DT Spec INR mg in last 7 days 10/27/2023 07:46 BLOOD 2.3 17.5 letter 08/27/2023 08:38 BLOOD 2.2 17.5 07/22/2023 07:48 BLOOD 2.9 17.5 letter 06/03/2023 08:01 PLASM 2.2 17.5 letter 05/06/2023 07:55 BLOOD 2.6 17.5 letter 03/11/2023 07:48 BLOOD 2.5 17.5 01/14/2023 07:42 BLOOD 2.1 17.5 letter 11/19/2022 08:16 BLOOD 2.4 17.5 letter 09/25/2022 13:53 BLOOD 3.0 17.5 letter + VMs Other Recent Labs Collection DT Spec WBC HGB HCT PLT MCV NEUT LYMPHS 06/03/2023 08:01 BLOOD 9.60 15.4 44.8 254 95.9 05/09/2022 07:45 BLOOD 7.84 14.4 42.8 224 96.4 ASSESSMENT/PLAN: Therapeutic INR. Reassess in 8 weeks. - Warfarin dose: CONTINUE: 2.5mg daily (17.5mg/wk) - Next INR: 12/22/23 @[facility] POC @8am - Rx reviewed - Letter sent Time Spent: 10 Minutes /bryant/ ERNESTO PATEL CLINICAL PHARMACIST Signed: 10/28/2023 11:27 ERNESTO PATEL [facility]
--- OUTSIDE RECORDS SUMMARY | 2023-11-13 08:49 | XMS_ITS | Encounter Summary ---
Author Organization [facility] Address [address] [place] [address] Care Team Providers Care Supervisor Dock Name Role Phone Junior Woods M.D. Primary Care Denzel [email or web address] Reason for Visit * Reason Onset Date Comments Hypertension - Quality Improvement 08/28/2023 Encounter Details Date Type Department Care Team (Latest Contact Info) Description 08/28/2023 Clinical Communication Department of Family Medicine, [facility], in [place], [place] [address] [place] [phone] Junior Woods M.B.B.S., MZahra [address] [place] [address] Hypertension - Quality Improvement Social History Tobacco Use Types Packs/Day Years [...] re latives? Once a week 11/21/2020 Attends [employer] Not on file 11/21 Do you belong to any clubs o r organizations such as muslim groups, unions, fraternal or athletic groups, or [...] Answer Date Recorded PHQ-2 Score 0 03/12/2023 [facility] - Occupational [...] place to sleep or slept in a retirement (including now)? No 11/21/2020 Nutrition Answer Date [...] on file documented as of this encounter Miscellaneous Notes * Telephone Encounter - Natali Soriano - 09/23/2023 1:27 PM CDT Patient is wondering if labs need to be ordered before his physical in November. Please order labsand patient will be contacted. * Telephone Encounter - Saima Ferro R.N. - 08/28/2023 2:52 PM CDT Primary Care Chart Review Completed patient chart review on 08/28/2023, for Balaji Bethea, a 78 y.o. male, currently paneled to Pablo Littlejohn M.D.. Summary of Chart Review Lab Results Component Value Date HGBA1C 6.7 (H) 03/12/2023 Lab Results Component Value Date LDLCALC 101 10/26/2020 BP Readings from Last 2 Encounters: 03/12/23 158/67 03/12/23 152/78 Social History Tobacco Use Smoking Status Former Current packs/day: 0.00 Types: Cigarettes, Pipe Start date: 1948 Quit date: 1977 Years since quittin.5 Smokeless Tobacco Never Upon today's chart review, patient is not meeting the following criteria: Blood pressure Patient has a visit scheduled with Dr. Woods, on 11/11/23.. Recent Updates to Hypertension Management Plan The following recommendations regarding patient's hypertension management plan have been made within the last 12 months: No changes to patient's diabetes management plan have been recommended within the last 12 months. Home monitoring was recommended and multiple attempts have been made to get home BP readings from patient. Patient reads messages but does not reply. Recommended follow-up: RN will: pend order for nurse visit BP check, see if patient will come to clinic for nurse visit inthe near future. Additional Notes: None. documented in this encounter Plan of Treatment Not on file documented as of this encounter Visit Diagnoses Diagnosis Hypertension Essential Primary- Primary documented in this encounter Additional Health Concerns Assessment Noted Time PHQ-9 Depression Total Score: 0 10/20/19 19 9:46 AM CDT documented as of this encounter Care Teams Supervisor Dock Relationship Specialty Start Date End Date Junior Woods M.B.B.S., M.D. [address] [place] [phone] PCP - General Family Medicine 08/13/19 documented as of this encounter
--- OUTSIDE RECORDS SUMMARY | 2023-11-13 08:49 | XMS_ITS | Encounter Summary ---
Author Organization [facility] Address [address] [place] [id number] Care Team Providers Care Commercial Green Building Architect Name Role Phone Junior Woods M.D. Primary Care Denzel zepeda Reason for Visit * Reason Comments Medication review No concerns. * Appointment Request (Routine) - Closed Specialty Diagnoses / Procedures Referred By Chen [email or web address] Referred To Contact Family Medicine Referral ID Status Reason Start Date Expiration Date Visits Re quested Visits Authorized [id number] Closed 05/22/2023 05/21/2024 1 1 Encounter Details Date Type Department Care Team (Latest Contact Info) Description 11/11/2023 8:30 AM CDT Comprehensive Visit Department of Family Medicine, [facility], in [place], [place] [address] [place] [phone] Junior Woods M.B.B.S., M.D. [address] [place] [phone] Atrial Fibrillation Unspecified (HCC) (Primary Dx); Hypertension Essential Primary; Peripheral Vascular Disease (HCC); Apnea Sleep Obstructive; Hyperlipidemia; Impaired Fasting Glucose Social History Tobacco Use Types Packs/Day Years Used Date Smoking Tobacco: Former Cigarettes 1 1977 Pipe Smokeless Tobacco: Never Tobacco Cessation:Counseling [...] re latives? Once a week 11/21/2020 Attends [employer] Not on file 11/21 Do you belong to any clubs o r organizations such as buddhism groups, unions, fraternal or athletic groups, or [...] Answer Date Recorded PHQ-2 Score 0 03/12/2023 [facility] - Occupational Stress Questionnaire Answer Date Recorded [...] place to sleep or slept in a senior living (including now)? No 11/21/2020 Nutrition Answer Date [...] on file documented as of this encounter Last Filed Vital Signs Vital Sign Reading Time Taken Comments Blood Pressure 135/63 11/11/2023 8:24 AM CDT Pulse 43 11/11/2023 8:24 AM CDT Temperature 35.5 ??C (95.9 ??F) 11/11/2023 8 :18 AM CDT Respiratory Rate 16 11/11/2023 8:18 AM CDT Oxygen Saturation - - Inhaled Oxygen Concentration - - Weight 87.6 kg (193 lb 1.9 oz) 11/11/2023 8:18 AM CDT Height 170 cm (5' 6.93) 11/11/2023 8:1 8 AM CDT with shoes on Body Mass Index 30.31 11/11/2023 8:18 AM CDT documented in this encounter H&P Notes * Junior Woods M.B.B.S., M.D. - 11/11/2023 8:30 AM CDT SUBJECTIVE HISTORY OF PRESENT ILLNESS Balaji Bethea is a 78 y.o. male who presents for an annual exam. The patient is feeling quite well. He reports consistency with his medications. [facility] He has no concerns today. Patient Active Problem List Diagnosis Hypertension Essential Primary Bradycardia Sinus Peripheral Vascular Disease (HCC) Dilatation Ascending Aorta (HCC) Annual Medicare Examination Return Keratosis Actinic Length Control Tester (Current) Anticoagulant Treatment Degeneration Disc Cervical Atrial Fibrillation Unspecified (HCC) High Risk Medication Hyperlipidemia Impaired Fasting Glucose Loss Hearing Sensorineural Bilateral Pain Neck Apnea Sleep Obstructive Defect Atrial Septal Secundum (HCC) Cancer Skin Squamous Cell Personal History Cancer Skin Basal Cell Personal History Flutter Atrial (HCC) REVIEW OF SYSTEMS General: No weight gain, no weight loss, no fever in past month, no chills, no sweats, no fatigue. HEENT: No blurred vision, no double vision, no eye pain, no sinus problems, no hoarseness, no difficulty swallowing, no mouth sores, no diminished hearing, no ringing in the ears, no enlarged glands. Pulmonary: No shortness of breath, no cough, no wheezing, no sputum, no hemoptysis. Cardiac: No valve problems, no chest pain, no chest pressure, no rapid beating, no irregular beating, no dependent edema, pain in calves or with walking, no difficulty moving arms and legs. GI: No heartburn, no nausea, no vomiting, no stomach trouble, no constipation, no diarrhea, no blood in BMs, no change in BMs. Reproductive: Is heterosexual, no change in sex drive or performance. : No burning/pain with urination, no difficulty starting stream, no difficulty emptying bladder, no excessive urination. Musculoskeletal: No joint pain, no joint swelling, no joint stiffness, no muscle pain, no muscle stiffness, no back pain, no back stiffness. Skin: No skin rashes, no skin sores, no change in moles. Neuro: No significant headaches, no slurred speech, no seizures, no dizziness, no loss of consciousness, no memory loss. Psych: No mood change. Sleep is okay. 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 Basal Cell Carcinoma Right Right preauricular area Malignant Neoplasm Of Ear Squamous Cell Carcinoma Right Right preauricular area Osteoarthritis Patent Foramen Ovale (HCC) Status post closure in 2000 Peripheral Vascular Disease (HCC) Stroke (HCC) 07/17/2000 Posterior inferior cerebellar infarction Tendinitis Extensor Tobacco Use Social History Socioeconomic History Marital status: Spouse name: Ynes Number of children: 2 Years of education: Not on file Highest education level: Some college, no degree Occupational History Employer: RETIRED Tobacco Use Smoking status: Former Current packs/day: 0.00 Types: Cigarettes, Pipe Start date: 1948 Quit date: 1977 Years since quittin.7 Smokeless tobacco: Never Substance and Sexual Activity Alcohol use: Yes Alcohol/week: 14.0 standard drinks of alcohol Types: 14 Cans of beer per week Comment: 2 bottles beer daily Drug use: No Sexual activity: Not on file Other Topics Concern Not on file Social History Narrative He is , Ynes. He is retired. He has 2 children. He is active. He exercises regularly. He quit smoking cigarettes in 1977. He has a 30 pack year history of smoking. He drinks two beers most days with supper. He denies drug abuse. He drinks decaffeinated coffee regularly. Caffeine: 5-7 cups decaf coffee daily Social Determinants of Health Food Insecurity: No Food Insecurity (11/21/2020) Hunger Vital Sign Worried About Running Out of Food in the Last Year: Never true Ran Out of Food in the Last Year: Never true Transportation Needs: No Transportation Needs (11/21/2020) PRAPARE - Transportation Lack of Transportation (Medical): No Lack of Transportation (Non-Medical): No Physical Activity: Insufficiently Active (11/21/2020) Exercise Vital Sign Days of Exercise per Week: 2 days Minutes of Exercise per Session: 30 min Intimate Partner Violence: Not At Risk (11/21/2020) Humiliation, Afraid, Rape, and Kick questionnaire Fear of Current or Ex-Partner: No Emotionally Abused: No Physically Abused: No Sexually Abused: No Housing Stability: Low Risk (11/21/2020) Housing Stability Vital Sign Unable to Pay for Housing in the Last Year: No Number of Places Lived in the Last Year: 1 Unstable Housing in the Last Year: No Family History Problem Relation Name Age of Onset Heart attack Father Hypertension Father Coronary artery disease Father Hearing loss Father Hypertension Mother Hearing loss Mother Alzheimer's disease Mother Dementia Mother Hypertension Sister Hyperlipidemia Sister Cataracts Sister Skin cancer Sister Hypertension Brother Hearing loss Brother Diabetes Brother Hyperlipidemia Brother Cataracts Brother OBJECTIVE VITAL SIGNS BP 135/63 (BP Location: Left arm, Patient Position: Sitting, Cuff Size: Regular) Pulse (!) 43 Temp (!) 35.5 ??C (Temporal) Resp 16 Ht 170 cm Comment: with shoes on Wt 87.6 kg BMI 30.31 kg/m?? Body mass index is 30.31 kg/m??. PHYSICAL EXAMINATION General: Patient is in no distress. Capable of full communication without difficulty. Patient is polite and cooperative. Appropriately dressed and normal hygiene. HEENT: Normocephalic. EOMI, PERRLA, canals patent, TMs normal. Oropharynx without lesion of mucosa.Pharyngeal rises symmetrically without exudate. Neck: No nodes, no thyromegaly. No bruit auscultated. Heart: Regular rate and rhythm. No murmurs, gallops or rubs noted. Lungs: Clear to auscultation bilaterally. No expiratory wheeze. No accessory muscles of respirationnoted. Abdomen: Nontender to palpation. Non-distended. No mass. Normal bowel sounds in all 4 quadrants. Extremities: No neurovascular compromise. No cyanosis, clubbing or edema. No abnormal limb length. Endocrine: No purple striae, kinney faces or buffalo hump. Neurologic: Strength and tone normal, sensory exam grossly normal, mentation intact, speech normal,reflexes symmetric. Psychiatric: Alert and oriented times 3; speech coherent, normal rate and volume; able to articulate logical thoughts. Lymphatics: Anterior cervical normal, posterior cervical normal. Skin: No lesion, rash or bruising. ASSESSMENT / PLAN Balaji Buckley was seen today for medication review. Diagnoses and all orders for this visit: Atrial Fibrillation Unspecified (HCC) - Basic Metabolic Panel; Future - warfarin (Jantoven) 5 mg tablet; Take as directed per After Visit Summary. Hypertension Essential Primary - Basic Metabolic Panel; Future - CBC with Differential, Blood; Future - lisinopriL 10 mg tablet; Take 1 tablet (10 mg total) by mouth daily. - metoprolol tartrate (Lopressor) 100 mg tablet; Take 1 tablet (100 mg total) by mouth 2 (two) times a day. - triamterene-hydroCHLOROthiazide (Maxzide) 75-50 mg per tablet; Take 1 tablet by mouth every morning. Peripheral Vascular Disease (HCC) Apnea Sleep Obstructive Hyperlipidemia - Lipid Panel; Future - pravastatin (PravachoL) 80 mg tablet; Take 1 tablet (80 mg total) by mouth at bedtime. Impaired Fasting Glucose - Hemoglobin A1c; Mike Buckley is here for his annual physical. His medications have been reviewed today. Strategies for healthy living have been discussed. Annual labs have been ordered. Pablo Littlejohn M.D. documented in this encounter Plan of Treatment Not on file documented as of this encounter Results * (ABNORMAL) Hemoglobin A1c [...] Junior Shah M.D. LAB BLO OD ADD-ON [facility] [address] [place] [address], [place] [facility] in [place] [address] [place] [address] * (ABNORMAL) CBC with Differential, Blood (11/11/2023 [...] Junior Shah M.D. LAB BLO OD ADD-ON [facility] [address] [place] [address], [facility] [address] [facility] in [place] [address] [place] [address] * (ABNORMAL) Lipid Panel (11/11/2023 9:45 AM [...] Junior Shah M.D. LAB BLO OD ADD-ON [facility] [address] [place] [id number], [facility] [place] [address], [place] [address] * Basic Metabolic Panel (11/11/2023 9:45 AM [...] Junior Shah M.D. LAB BLO OD ADD-ON [facility] [address] [place] [address], [facility] [place] [address] [place] [address] documented in this encounter Visit Diagnoses Diagnosis Atrial Fibrillation Unspecified (HCC)- Primary Hypertension Essential Primary Peripheral Vascular Disease (HCC) Apnea Sleep Obstructive Hyperlipidemia Impaired Fasting Glucose documented in this encounter Additional Health Concerns Assessment Noted Time PHQ-9 Depression Total Score: 0 10/20/19 19 9:46 AM CDT documented as of this encounter Care Teams Commercial Green Building Architect Relationship Specialty Start Date End Date Junior Woods M.B.B.S., M.D. [address] [place] [phone] PCP - General Family Medicine 08/13/19 documented as of this encounter
--- OUTSIDE RECORDS SUMMARY | 2023-11-13 08:49 | XMS_ITS | Encounter Summary ---
Author Name [facility] [place] Organization [facility] [place] Address [address] [place] [address] Care Team Providers Care Semiconductor Equipment Technician Name Role Phone CATIE GAN Primary Care [...] Relationship to Policy Reyez HUMANA [facility] ([facility]) MEDICARE ADVANTAGE [facility] ([facility]) Mar 03, 2018 [id number] FLEX FRAGOSO PATIENT [facility] ([facility]) MEDICARE ADVANTAGE [facility] ([facility]) Mar 03, 2021 [id number] FLEX FRAGOSO PATIENT Selected Encounter This section includes the information on record at [place] for the Encounter. Date/Time Encounter Type Encounter Description Reason Provider Source Aug 28, 2023 02:29 PM QNHP OL DIG ASSMT&MGMT 5-10 TELEPHONE/ANCILLA RY ICD-10-CM Z51.81 Encounter for therapeutic drug level monitoring JASS AVALOS IHE Encounter Template Text not used by [place] Assessments - Encounter Diagnoses This section includes the primary and secondary diagnoses documented for the Encounter. 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 This section includes future appointments and future orders which are active, pending or scheduled. Future Appointments This section includes appointments that were scheduled to occur 6 months from the date of the Encounter, up to a maximum of 20 appointments. The data comes from all [place] treatment facilities. Appointment Date/Time Appointment Type Appointme nt Facility Name Oct 27, 2023 08:00 AM AMBULATORY - NONE [facility] Dec 22, 2023 08:00 AM AMBULATORY - NONE [facility] Lab Results: +/- 30 days of the encounter This section includes the Chemistry and Hematology Lab Results on record with [place] for the patient. Radiology Reports and Pathology Reports are provided separately, in subsequent sections. Lab Results This section contains the Chemistry/Hematology Results that were resulted 30 days before or 30 daysafter the date of the Encounter. Date/Time Source Result Type Result - Unit Interpretation Reference Range Comment Aug 27, 2023 04:58 PM [facility] ALBUMIN/CREATININE RATIO URINE Specimen Type: URINE No comment entered. Ordering Provider: GUY LINDSAY Report Released Date/Time: Aug 27, 2023 08:33 AM Reporting Lab: [facility] [id number] Performing Lab: [facility] [id number] CREATININE,U R RANDOM 46.8 mg/dL L 58.0-161.0 ALB/CREAT RATIO,UR 16.9 mg/g{creat} <29.9 ALBUMIN,UR 7.9 mg/L <29.9 Aug 27, 2023 08:38 AM [facility] POC INR(COAGUCHEK) Specimen Type: BLOOD No comment entered. Ordering Provider: GUY LINDSAY Report Released Date/Time: Aug 27, 2023 08:41 AM Reporting Lab: [facility] [id number] Performing Lab: [facility] [id number] POC INR(COAGUCHE K) 2.2 {INR} H 0.8-1.1 Aug 27, 2023 08:35 AM [facility] BASIC METABOLIC PANEL+MG Specimen Type: PLASMA No comment entered. Ordering Provider: GUY LINDSAY Report Released Date/Time: Aug 27, 2023 08:33 AM Reporting Lab: [facility] [id number] Performing Lab: [facility] [id number] CREATININE 0.8 mg/dL 0.7-1.2 UREA NITROGEN 12 mg/dL 8-26 GLUCOSE 112 mg/dL H 70-100 SODIUM 136 mmol/L 136-145 POTASSIUM 4.0 mmol/L 3.5-5.1 CHLORIDE 103 mmol/L 98-107 CO2 24 mmol/L 22-29 CALCIUM 9.6 mg/dL 8.4-10.2 MAGNESIUM 2.2 mg/dL 1.6-2.6 ANION GAP 9 mmol/L 5-15 .CREAT EGFR(CKD-EPI ) 90 >60 Social History: Smoking Status (Most current) and Tobacco Use (All prior to encounter date) This section includes the most current, and the historical, smoking and tobacco- related health factors from the [place] facility where the Encounter took place. Current Smoking Status This section includes the most current smoking, or tobacco-related health factor, from the [place] facility where the Encounter took place. Date/Time Current Smoking Status Comment Geronimo cross Aug 27, 2023 08:00 AM VA-TOBACCO QUIT 15 YRS OR MORE [facility] Tobacco Use History This section includes a history of the smoking, or tobacco-related health factors, that were collected on or before the date of the Encounter. The data comes from the [place] facility where the Encounter took place. Date/Time Smoking Status/Tobacco Use Comment F acility Aug 27, 2023 08:00 AM VA-TOBACCO QUIT 15 YRS OR MORE [facility] May 09, 2022 08:45 AM VA-TOBACCO FORMER USER [facility] May 09, 2022 08:45 AM VA-TOBACCO QUIT 15 YRS OR MORE [facility] May 30, 2021 08:15 AM VA-TOBACCO FORMER USER [facility] May 30, 2021 08:15 AM VA-TOBACCO QUIT 15 YRS OR MORE [facility] May 29, 2020 08:30 AM VA-TOBACCO FORMER USER [facility] May 29, 2020 08:30 AM VA-TOBACCO QUIT 15 YRS OR MORE [facility] Feb 09, 2019 09:07 AM VA-TOBACCO FORMER USER [facility] Feb 09, 2019 09:07 AM VA-TOBACCO QUIT 15 YRS OR MORE [facility] Apr 22, 2018 10:04 AM VA-TOBACCO FORMER USER [facility] Apr 22, 2018 10:04 AM VA-TOBACCO QUIT 15 YRS OR MORE [facility] Apr 02, 2017 09:41 AM FORMER TOBACCO USER 7Y OR GREATE R [facility] Apr 02, 2016 02:38 PM FORMER TOBACCO USER 7Y OR GREATE R [facility] Apr 26, 2015 08:09 AM FORMER TOBACCO USER 7Y OR GREATE R [facility] May 17, 2014 08:12 AM FORMER TOBACCO USER 7Y OR GREATE R [facility] Sep 11, 2010 12:27 PM FORMER TOBACCO USER 7Y OR GREATE R [facility] Encounter Notes: All associated encounter notes This section contains the clinical notes associated to the Encounter. Date/Time Encounter Note(s) Provider Source Aug 29, 2023 01:53 PM ADDENDUM: LOCAL TITLE: Addendum STANDARD TITLE: ADDENDUM DATE OF NOTE: AUG 29, 2023@13:53:36 ENTRY DATE: AUG 29, 2023@13:53:37 AUTHOR: LENORE GRIFFITH EXP COSIGNER: URGENCY: STATUS: COMPLETED SUBJECT: Anticoag Patient returned real estate underwriter's call and reviewed the following: SUBJECTIVE/OBJECTIVE: History obtained from patient at [phone]. No Health changes: No Pending procedures: No Bleeding or thromboembolic signs/symptoms or falls: Yes Significant medication changes/new drug interactions: - Continues: APAP PRN Arthritis - CHANGES: Patient confirmed he discontinued ASA 81mg No Dietary changes: - Baseline vit K: they have vegtables everyday at lunch. From [employer], [employer], various vegtables. Yes Alcohol/tobacco use: - Baseline: Continues with 1-2 beers daily No Dosing discrepancies: Warfarin dose: 2.5mg daily (17.5mg/wk); PM Collection DT Spec INR mg in last 7 days 08/27/2023 08:38 BLOOD 2.2 17.5 07/22/2023 07:48 [...] BLOOD 7.84 14.4 42.8 224 96.4 ASSESSMENT/PLAN: Patient confirmed follow up date of 10/22/23. /es/ LENORE GRIFFITH PRODUCT CONTROLLER Signed: 08/29/2023 13:57 Receipt Acknowledged By: 08/29/2023 14:44 /bryant/ Genesis Avalos PharmD, [facility] Clinical Alternative Energy Technician --- Original Document --- 08/28/23 PHARMACY ANTICOAGULATION CLINIC F/U: Warfarin indication: A-fib Relevant PMH: - CVA [...] Assessment (05/20/19: Pt declined, stable pattern. SUBJECTIVE/OBJECTIVE: 08/28/23: Unable to reach patient for routine phone follow up. Voicemail left and letter sent. Assessment completed as chart review; pt was not interviewed. From PACT note in CPRS on 08/27/23: -D/C order for ASA Warfarin dose: 2.5mg daily (17.5mg/wk); PM Collection DT Spec INR mg in last 7 days 08/27/2023 08:38 BLOOD 2.2 17.5 letter + 07/22/2023 07:48 BLOOD 2.9 17.5 letter 06/03/2023 [...] CONTINUE: 2.5mg daily (17.5mg/wk) - Next INR: 10/22/23 @[facility] @8am - Rx reviewed - Voicemail left and letter sent Time Spent: 10 Minutes /es/ LENORE GRIFFITH PRODUCT CONTROLLER Signed: 08/28/2023 14:38 LENORE GRIFFITH [facility] Aug 28, 2023 02:30 PM PHARMACY OUTPATIEN T MEDICATION MGT NOTE: LOCAL TITLE: PHARMACY ANTICOAGULATION CLINIC F/U STANDARD TITLE: PHARMACY OUTPATIENT MEDICATION MGT NOTE DATE OF NOTE: AUG 28, 2023@14:30:55 ENTRY DATE: AUG 28, 2023@14:30:55 AUTHOR: LENORE GRIFFITH EXP COSIGNER: URGENCY: STATUS: COMPLETED SUBJECT: Anticoag PHARMACY ANTICOAGULATION CLINIC F/U Has ADDENDA Warfarin [...] Assessment (05/20/19: Pt declined, stable pattern. SUBJECTIVE/OBJECTIVE: 08/28/23: Unable to reach patient for routine phone follow up. Voicemail left and letter sent. Assessment completed as chart review; pt was not interviewed. From PACT note in CPRS on 08/27/23: -D/C order for ASA Warfarin dose: 2.5mg daily (17.5mg/wk); PM Collection DT Spec INR mg in last 7 days 08/27/2023 08:38 BLOOD 2.2 17.5 letter + VM 07/22/2023 07:48 BLOOD 2.9 17.5 letter 06/03/2023 [...] CONTINUE: 2.5mg daily (17.5mg/wk) - Next INR: 10/22/23 @[facility] @8am - Rx reviewed - Voicemail left and letter sent Time Spent: 10 Minutes /es/ LENORE GRIFFITH PRODUCT CONTROLLER Signed: 08/28/2023 14:38 08/29/2023 ADDENDUM STATUS: COMPLETED Patient returned real estate underwriter's call and reviewed the following: SUBJECTIVE/OBJECTIVE: History obtained from patient at [phone]. No Health changes: No Pending procedures: No Bleeding or thromboembolic signs/symptoms or falls: Yes Significant medication changes/new drug interactions: - Continues: APAP PRN Arthritis - CHANGES: Patient confirmed he discontinued ASA 81mg No Dietary changes: - Baseline vit K: they have vegtables everyday at lunch. From [employer], various vegtables. Yes Alcohol/tobacco use: - Baseline: Continues with 1-2 beers daily No Dosing discrepancies: Warfarin dose: 2.5mg daily (17.5mg/wk); PM Collection DT Spec INR mg in last 7 days 08/27/2023 08:38 BLOOD 2.2 17.5 07/22/2023 07:48 [...] BLOOD 7.84 14.4 42.8 224 96.4 ASSESSMENT/PLAN: Patient confirmed follow up date of 10/22/23. /bryant/ LENORE GRIFFITH PRODUCT CONTROLLER Signed: 08/29/2023 13:57 Receipt Acknowledged By: 08/29/2023 14:44 /bryant/ Abhinav LemonsD, BCACP Clinical Alternative Energy Technician 09/23/2023 ADDENDUM STATUS: COMPLETED Patient had sent a My Healthy Vet Message and has rescheduled his INR to 10/27/23. /bryant/ NATHAN HOPPER MEDICAL SUPPORT ASSISTAT Signed: 09/23/2023 13:35 LENORE GRIFFITH [facility]
--- OUTSIDE RECORDS SUMMARY | 2023-11-13 08:49 | XMS_ITS ---
Author Organization [facility] Address [address] [place] [address] Care Team Providers Care Pigs Feet Finisher Name Role Phone Unavailable Unavailable Unavailable Surgery Details Not on file Complications Check Surgery Details section. Procedure Estimated Blood Loss Check Surgery Details section. Procedure Findings Check Surgery Details section. Procedure Specimens Taken Check Surgery Details section.
--- OUTSIDE RECORDS SUMMARY | 2023-11-13 08:49 | XMS_ITS | Encounter Summary ---
Author Name [facility] [place] Organization [facility] [place] Address [address] [place] [id number] Care Team Providers Care Public Health Physician Name Role Phone CATIE GAN Primary Care [...] Name Patient's Relationship to Policy Reyez HUMANA [facility] (WNR) MEDICARE ADVANTAGE [facility] ([facility]) Mar 03, 2018 [id number] FLEX FRAGOSO PATIENT [facility] (WNR) MEDICARE ADVANTAGE [facility] ([facility]) Mar 03, 2021 [id number] FLEX FRAGOSO PATIENT Selected Encounter This section includes the information on record at [place] for the Encounter. Date/Time Encounter Type Encounter Description Reason Pro vider Source Nov 11, 2023 12:35 PM Outpatient Encounter [facility] CONSULT IHE Encounter Template Text not used by [place] Plan of Treatment: Future Appointments (+ 6 months) and Future Tests (+/- 45 days) The Plan of Treatment section includes future care activities for the patient from all [facility] treatment[facility]. This section includes future appointments and future orders which are active, pending or scheduled. Future Appointments This section includes appointments that were scheduled to occur 6 months from the date of the Encounter, up to a maximum of 20 appointments. The data comes from all [place] treatment facilities. Appointment Date/Time Appointment Type Appointme nt Facility Name Dec 22, 2023 08:00 [facility] Mar 09, 2024 09:00 AM AMBULATORY - SURGERY [facility] Lab Results: +/- 30 days of the encounter This section includes the Chemistry and Hematology Lab Results on record with [place] for the patient. Radiology Reports and Pathology Reports are provided separately, in subsequent sections. Lab Results This section contains the Chemistry/Hematology Results that were resulted 30 days before or 30 daysafter the date of the Encounter. Date/Time Source Result Type Result - Unit Interpretation Reference Range Comment Oct 27, 2023 07:[address] [facility] POC INR(COAGUCHEK) Specimen Type: BLOOD No comment entered. Ordering Provider: GUY LINDSAY Report Released Date/Time: Oct 27, 2023 07:48 AM Reporting Lab: [facility] [id number] Performing Lab: [facility] [id number] POC INR(COAGU CHEK) 2.3 {INR} H 0.8-1.1 Social History: Smoking Status (Most current) and Tobacco Use (All prior to encounter date) This section includes the most current, and the historical, smoking and tobacco- related health factors from the [place] facility where the Encounter took place. Current Smoking Status This section includes the most current smoking, or tobacco-related health factor, from the [place] facility where the Encounter took place. Date/Time Current Smoking Status Comment Geronimo ity Aug 27, 2023 08:00 AM VA-TOBACCO FORMER USER [facility] Tobacco Use History This section includes a history of the smoking, or tobacco-related health factors, that were collected on or before the date of the Encounter. The data comes from the [place] facility where the Encounter took place. Date/Time Smoking Status/Tobacco Use Comment F acility Aug 27, 2023 08:00 AM VA-TOBACCO QUIT [address] [facility] May 09, 2022 08:45 AM VA-TOBACCO FORMER USER [facility] May 09, 2022 08:45 AM VA-TOBACCO QUIT [address] [facility] May 30, 2021 08:15 AM VA-TOBACCO FORMER USER [facility] May 30, 2021 08:15 AM VA-TOBACCO QUIT [address] [facility] May 29, 2020 08:30 AM VA-TOBACCO FORMER USER [facility] May 29, 2020 08:30 AM VA-TOBACCO QUIT [address] [facility] Feb 09, 2019 09:07 AM VA-TOBACCO FORMER USER [facility] Feb 09, 2019 09:07 AM VA-TOBACCO QUIT [address] [facility] Apr 22, 2018 10:04 AM VA-TOBACCO FORMER USER [facility] Apr 22, 2018 10:04 AM VA-TOBACCO QUIT [address] [facility] Apr 02, 2017 09:41 AM FORMER TOBACCO USER 7Y OR GREATE R [facility] Apr 02, 2016 02:38 PM FORMER TOBACCO USER 7Y OR GREATE R [facility] Apr 26, 2015 08:09 AM FORMER TOBACCO USER 7Y OR GREATE R [facility] May 17, 2014 08:12 AM FORMER TOBACCO USER 7Y OR GREATE R [facility] Sep 11, 2010 12:27 PM FORMER TOBACCO USER 7Y OR GREATE R [facility] Encounter Notes: All associated encounter notes This section contains the clinical notes associated to the Encounter. Date/Time Encounter Note(s) Provider Source Nov 11, 2023 12:35 PM PHARMACY NOTE: LOCAL TITLE: PHARMACY NON [place] CARE MEDICATIONS STANDARD TITLE: PHARMACY NOTE DATE OF NOTE: NOV 11, 2023@12:35 ENTRY DATE: NOV 11, 2023@12:36:01 AUTHOR: JESSICA FLORES COSIGNER: URGENCY: STATUS: COMPLETED [facility] RECEIVED electronic prescription(s) (eRX(s)) from NON-ME Provider: KENDRICK MONROE I. Date eRX received: Nov Outside (NON-VA) provider not authorized to write for prescription(s) through [place] pharmacy. Prescription request REDIRECTED via FAX to one of the following for review: [X][facility] (Dual) [facility] [ ]Other: eRx Prescription Information: 1. [id number] lisinopriL 10 mg table KENDRICK MONROE I 11/11/23 N A A A eRx Qty: 90 eRx # of Refills: 3 eRx Days Supply: SIG: Take 1 tablet (10 mg total) by mouth daily. 2. [id number] metoprolol tartrate 10 KENDRICK MONROE I 11/11/23 N A A A eRx Qty: 180 eRx # of Refills: 3 eRx Days Supply: SIG: Take 1 tablet (100 mg total) by mouth 2 (two) times a day. 3. [id number] pravastatin 80 mg tabl KENDRICK MONROE [place] 11/11/23 N A A A eRx Qty: 90 eRx # of Refills: 3 eRx Days Supply: SIG: Take 1 tablet (80 mg total) by mouth at bedtime. 4. [id number] triamterene 75 mg-hydr KENDRICK MONROE [place] 11/11/23 N A A A eRx Qty: 90 eRx # of Refills: 3 eRx Days Supply: SIG: Take 1 tablet by mouth every morning. 5. [id number] warfarin 5 mg tablet ( KENDRICK MONROE [place] 11/11/23 N A A eRx Qty: 100 eRx # of Refills: 3 eRx Days Supply: SIG: Take as directed per After Visit Summary. /bryant/ JESSICA FLORES pharmacist Signed: 11/11/2023 12:[address] [facility]
--- OUTSIDE RECORDS SUMMARY | 2023-11-13 08:49 | XMS_ITS | Encounter Summary ---
Author Name [facility] [place] Organization [facility] [place] Address [address] [place] [id number] Care Team Providers Care Road Mixer Operator Name Role Phone CATIE GAN Primary [...] Name Patient's Relationship to Policy Reyez [facility] ([facility]) MEDICARE ADVANTAGE [facility] ([facility]) Mar 03, 2018 [id number] FLEX FRAGOSO PATIENT [facility] ([facility]) MEDICARE ADVANTAGE MCR ([facility]) Mar 03, 2021 [id number] FLEX FRAGOSO PATIENT Selected Encounter This section includes the information on record at [place] for the Encounter. Date/Time Encounter Type Encounter Description Reason Provider Source Aug 27, 2023 08:00 AM OFFICE O/P EST MOD 30 MIN PRIMARY CARE/MEDICINE ICD-10-CM I10 Essential (primary) hypertension GUY LINDSAY Maria Esther Encounter Template Text not used by [place] Assessments - Encounter Diagnoses This section includes the primary and secondary diagnoses documented for the Encounter. Date/Time Primary/Secondary Diagnosis Diagnosis Name Provider Source Aug 27, 2023 08:42 AM PRIMARY Essential (primary) hypertension GUY LINDSAY [facility] Aug 27, 2023 08:42 AM SECONDARY Basal cell carcinoma of skin of other parts of face GUY LINDSAY [facility] Aug 27, 2023 08:42 AM SECONDARY Hyperlipidemia, unspecified GUY LINDSAY [facility] Aug 27, 2023 08:42 AM SECONDARY shelter (current) use of anticoagulants GUY LINDSAY [facility] Aug 27, 2023 08:42 AM SECONDARY Obstructive sleep apnea (adult) (pediatric) GUY LINDSAY [facility] Aug 27, 2023 08:42 AM SECONDARY Paroxysmal atrial fibrillation GUY LINDSAY [facility] Aug 27, 2023 08:42 AM SECONDARY Sensorineural hearing loss, bilateral GUY LINDSAY [facility] Aug 27, 2023 08:42 AM SECONDARY Type 2 diabetes mellitus without complications GUY LINDSAY [facility] Plan of Treatment: Future Appointments (+ 6 months) and Future Tests (+/- 45 days) The Plan of Treatment section includes future care activities for the patient from [facility] [place] [facility] This section includes future appointments and future orders which are active, pending or scheduled. Future Appointments This section includes appointments that were scheduled to occur 6 months from the date of the Encounter, up to a maximum of 20 appointments. The [facility] comes [facility]. Appointment Date/Time Appointment Type Appointme nt Facility Name Oct 27, 2023 08:00 AM AMBULATORY - NONE [facility] Dec 22, 2023 08:00 AM AMBULATORY NONE [facility] Lab Results: +/- 30 days of [...] Range Comment Aug 27, 2023 04:58 PM [facility] ALBUMIN/CREATININE RATIO URINE Specimen Type: URINE No comment entered. Ordering Provider: GUY LINDSAY Report Released Date/Time: Aug 27, 2023 08:33 AM Reporting Lab: [facility] [id number] Performing Lab: [facility] [id number] CREATININE,U R RANDOM 46.8 mg/dL L 58.0-161.0 ALB/CREAT RATIO,UR 16.9 mg/g{creat} <29.9 ALBUMIN,UR 7.9 mg/L <29.9 Aug 27, 2023 08:38 AM [facility] POC INR(COAGUCHEK) Specimen Type: BLOOD No comment entered. Ordering Provider: GUY LINDSAY Report Released Date/Time: Aug 27, 2023 08:41 AM Reporting Lab: [facility] [id number] Performing Lab: [facility] [id number] POC INR(COAGUCHE K) 2.2 {INR} H 0.8-1.1 Aug 27, 2023 08:35 AM [facility] BASIC METABOLIC PANEL+MG Specimen Type: PLASMA No comment entered. Ordering Provider: GUY LINDSAY Report Released Date/Time: Aug 27, 2023 08:33 AM Reporting Lab: [facility] [id number] Performing Lab: [facility] [id number] CREATININE 0.8 mg/dL 0.7-1.2 UREA NITROGEN 12 mg/dL 8-26 GLUCOSE 112 mg/dL H 70-100 SODIUM 136 mmol/L 136-145 POTASSIUM 4.0 mmol/L 3.5-5.1 CHLORIDE 103 mmol/L 98-107 CO2 24 mmol/L 22-29 CALCIUM 9.6 mg/dL 8.4-10.2 MAGNESIUM 2.2 mg/dL 1.6-2.6 ANION GAP 9 mmol/L 5-15 .CREAT EGFR(CKD-EPI ) 90 >60 Vital Signs: All taken on the encounter date This section contains inpatient and outpatient Vital Signs collected on the date of the Encounter. Date/Time Temperature Pulse Blood Pressure Respiratory Rate SP02 Pain Height Weight Body Mass Index Source Aug 27, 2023 07:55 AM 97.9 50 153/71 18 96 0 67 200 31 [facility] Social History: Smoking Status (Most current) and Tobacco Use (All prior to encounter date) This section includes the most current, and the historical, smoking and tobacco- related health factors from the [facility] where the Encounter took place. Current Smoking Status This section includes the most current smoking, or tobacco-related health factor, from the [place] facility where the Encounter took place. Date/Time Current Smoking Status Comment [place] Aug 27, 2023 08:00 AM VA-TOBACCO QUIT 15 YRS OR MORE [facility] Tobacco Use History This section includes a history of the smoking, or tobacco-related health factors, that were collected on or before the date of the Encounter. The data comes from the [place] facility where the Encounter took place. Date/Time Smoking Status/Tobacco Use Comment F acility Aug 27, 2023 08:00 AM VA-TOBACCO QUIT 15 YRS OR MORE [facility] May 09, 2022 08:45 AM VA-TOBACCO FORMER USER [facility] May 09, 2022 08:45 AM VA-TOBACCO QUIT 15 YRS OR MORE [facility] May 30, 2021 08:15 AM VA-TOBACCO FORMER USER [facility] May 30, 2021 08:15 AM VA-TOBACCO QUIT 15 YRS OR MORE [facility] May 29, 2020 08:30 AM VA-TOBACCO FORMER USER [facility] May 29, 2020 08:30 AM VA-TOBACCO QUIT 15 YRS OR MORE [facility] Feb 09, 2019 09:07 AM VA-TOBACCO FORMER USER [facility] Feb 09, 2019 09:07 AM VA-TOBACCO QUIT 15 YRS OR MORE [facility] Apr 22, 2018 10:04 AM VA-TOBACCO FORMER USER [facility] Apr 22, 2018 10:04 AM VA-TOBACCO QUIT 15 YRS OR MORE [facility] Apr 02, 2017 09:41 AM FORMER TOBACCO USER 7Y OR GREATE R [facility] Apr 02, 2016 02:38 PM FORMER TOBACCO USER 7Y OR GREATE R [facility] Apr 26, 2015 08:09 AM FORMER TOBACCO USER 7Y OR GREATE R [facility] May 17, 2014 08:12 AM FORMER TOBACCO USER 7Y OR GREATE R [facility] Sep 11, 2010 12:27 PM FORMER TOBACCO USER 7Y OR GREATE R [facility] Encounter Notes: All associated encounter notes This section contains the clinical notes associated to the Encounter. Date/Time Encounter Note(s) Provider Source Aug 27, 2023 09:20 AM LETTERS: LOCAL TITLE: FOLLOW UP RESULTS LETTER STANDARD TITLE: LETTERS DATE OF NOTE: AUG 27, 2023@09:20 ENTRY DATE: AUG 27, 2023@09:20:19 AUTHOR: GUY LINDSAY COSIGNER: URGENCY: STATUS: COMPLETED [facility] [place] [address] Aug CECI FRAGOSO [address] [place] [id number] Dear : I am writing to inform you of the results of testing that you had done recently at the [facility]. - Electrolytes including sodium and potassium SODIUM 136 (08/27/23) (normal is 136-145) POTASSIUM 4.0 (08/27/23) (normal is 3.5-5.1) - Calcium CALCIUM 9.6 (08/27/23) (normal is 8.5-10.1) - Kidney function CREATININE 0.8 (08/27/23)(normal Male = less than 1.2; normal Female = less than 1.0)) UREA NITROGEN 12 (08/27/23) (normal Male is 8-26; normal Female is 10- 20) - Blood Sugar GLUCOSE 112 H (08/27/23) (normal is 70 - 100 if fasting) - Blood Clotting Test INR 2.2 H (06/03/23) (suggested therapeutic range 2-3) Additional Comments: Your labs look good/normal. 112 for blood sugar is normal if you are not fasting. If you have any further questions or problems, please contact our nursing staff or provider at the following number: [phone]. Sincerely, GUY LINDSAY PA-C PHYSICIAN ADHESIVE BONDING MACHINE OPERATOR GUY LINDSAY [facility] Aug 27, 2023 07:51 AM INTERNAL MEDICINE OUTPATIENT NOTE: LOCAL TITLE: MEDICINE CLINIC NURSING NOTE STANDARD TITLE: INTERNAL MEDICINE OUTPATIENT NOTE DATE OF NOTE: AUG 27, 2023@07:51 ENTRY DATE: AUG 27, 2023@07:51:23 AUTHOR: ELLEN HAGER EXP COSIGNER: URGENCY: STATUS: COMPLETED MEDICINE CLINIC NURSING NOTE Has ADDENDA TYPE OF VISIT: Appointment Check In Type of appointment: In-person appointment REASON FOR VISIT: CHECK-UP ALLERGIES: Patient has answered NKA Vital Signs: Blood Pressure: 153/71 (08/27/2023 07:55) Recheck b/p158/82 Pulse: 50 (08/27/2023 07:55) Respiration: 18 (08/27/2023 07:55) Temperature: 97.9 F [36.6 C] (08/27/2023 07:55) Weight: 200 lb [90.72 kg] (08/27/2023 07:55) Height: 67 in [170.2 cm] (08/27/2023 07:55) BMI: 31.4 Pain: 0 (08/27/2023 07:55) PAIN SCREEN: Patient is not having significant pain that they wish to discuss with their provider today. MEDICATION Over the Counter/Herbal Medications: The patient states that they take some outside medications and/or herbals. Suicide Screen: C-SSRS Screening [place] Suicide Severity Rating Scale (C-SSRS) screener 1. Over the past month, have you wished you were or wished you could go to sleep and not wake up? No 2. Over the past month, have you had any actual thoughts of killing yourself? No 3. Over the past month, have you been thinking about how you might do this? Response not required due to responses to other questions. 4. Over the past month, have you had these thoughts and had some intention of acting on them? Response not required due to responses to other questions. 5. Over the past month, have you started to work out or worked out the details of how to kill yourself? Response not required due to responses to other questions. 6. If yes, at any time in the past month did you intend to carry out this plan? Response not required due to responses to other questions. 7. In your lifetime, have you ever done anything, started to do anything, or prepared to do anything to end your life (for example, collected pills, obtained a gun, gave away valuables, went to the roof but didn't jump)? No 8. If YES, was this within the past 3 months? Response not required due to responses to other questions. Depression Screening: Perform PHQ-2 A PHQ-2 screen was performed. The score was 0 which is a negative screen for depression. Over the past two weeks, how often have you been bothered by the following problems? 1. Little interest or pleasure in doing things Not at all 2. Feeling down, depressed, or hopeless Not at all Tobacco Use Screening: The patient is a former tobacco user. The patient quit fifteen or more years ago. /bryant/ ELLEN HAGER LPN LPN Signed: 08/27/2023 07:58 08/27/2023 ADDENDUM STATUS: COMPLETED EDUCATION: BARRIERS/SPECIAL NEEDS: No barriers identified PREFERRED STYLE OF LEARNING: No preference stated PARTICIPANT(s): Patient Clean Catch Urine Instructed in collection of clean catch urine. Printed instructions provided and participant(s) is able to repeat these instructions accurately. Albumin/Creatinine urine sent to lab /bryant/ ELLEN HAGER LPN LPN Signed: 08/27/2023 16:41 ELLEN HAGER [facility] Aug 27, 2023 07:45 AM INTERNAL MEDICINE NOTE: LOCAL TITLE: MEDICINE CLINIC NOTE STANDARD TITLE: INTERNAL MEDICINE NOTE DATE OF NOTE: AUG 27, 2023@07:45 ENTRY DATE: AUG 27, 2023@07:45:26 AUTHOR: GUY LINDSAY COSIGNER: URGENCY: STATUS: COMPLETED MEDICINE CLINIC NOTE Has ADDENDA CECI FRAGOSO is a 78 year old [facility] [address] [facility] Chief complaint: Routine f/u HPI: Pt with hypertension, hyperlipidemia, PFO (S/P repair 2000), sleep apnea, Paroxysmal atrial fibrillation on coumadin, diabetes type II, and CVA 2000 presents for routine follow up. He continues to be co-managed by Dr Woods at [facility] in [place], but gets most medications through the [place]. Pt reports health has been fine other than BPs has been a little high. Reports 120-150's/60-80's. ROS: No numbness/tingling of the lower extremities. Hard of hearing despite having hearing aids. Active problems - Computerized Problem List is the source for the followin. Hearing loss (SNOMED CT 34554574) - Total loss left ear( [facility] not rec cochlear implant - Hearing aid - right ear. 2. Insomnia (SNOMED CT 738109692) 3. Hypertension 4. PATENT FORAMEN OVALE - Repair through sternotomy 2000- [facility] 5. Long-term current use of anticoagulant (SNOMED CT 680947656) 6. 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 Hyperlipidemia 8. Obstructive sleep apnea 9. Paroxysmal atrial fibrillation 10. co-mgd - [facility] Dr. Jimenez 11. History of colonoscopy - 2013 Cscope w/diverticuli o/w , [facility]. F/u rec 10yr 12. Diabetes mellitus 13. History of cerebrovascular accident - Cerebellar infarct 07/17/2000 14. Ex-smoker - 30pack yr. Quit 1970s 15. Aortic root dilatation - 2014 echo ([place]) aortic root 4.3cm; ascending aorta 3.9cm - TTE 10/2018: EF 61%, ascending aorta 4.0cm, arch 3.0cm Allergies: Patient has answered NKA Active Medications: Active Outpatient Medications (including Supplies): Active Outpatient Medications Status 1) AMOXICILLIN 500MG CAP TAKE FOUR CAPSULES BY MOUTH ACTIVE DIRECTED ONE HOUR BEFORE PROCEDURE 2) ASPIRIN 81MG EC TAB TAKE ONE TABLET BY MOUTH EVERY ACTIVE DAY 3) HCTZ 50/TRIAMTERENE 75MG TAB TAKE 1 TABLET BY MOUTH ACTIVE (S) EVERY MORNING FOR BLOOD PRESSURE 4) LISINOPRIL 10MG TAB TAKE ONE-HALF TABLET BY MOUTH ACTIVE (S) EVERY DAY 5) METOPROLOL TARTRATE 100MG TAB TAKE ONE TABLET BY ACTIVE MOUTH TWICE A DAY 6) MULTIVITAMIN CAP/TAB TAKE 1 TABLET BY MOUTH EVERY ACTIVE MORNING 7) PRAVASTATIN NA 80MG TAB TAKE ONE TABLET BY MOUTH ACTIVE DAILY FOR CHOLESTEROL 8) PSYLLIUM SF ORAL PWD TAKE 1 TABLESPOONFUL BY MOUTH ACTIVE EVERY DAY MIXED IN JUICE OR WATER DIRECTED 9) TRIAMCINOLONE ACETONIDE 0.1% CREAM APPLY THIN LAYER ACTIVE TOPICALLY TWICE A DAY FOR RASH ON NECK 10) WARFARIN NA ([place]) 5MG TAB TAKE THIS ACTIVE MEDICATION BY MOUTH EVERY DAY TO PREVENT STROKES DIRECTED BY THE [facility]TICOAGULATION CLINIC (PHONE: [phone]) Active Non-VA Medications Status 1) Non-VA ZINC GLUCONATE TAB ACTIVE 11 Total Medications Family/Social History: EXAM:------ -- VS: Temperature: 97.9 F [36.6 C] (08/27/2023 07:55) Blood Pressure: 153/71 (08/27/2023 07:55) Pulse: 50 (08/27/2023 07:55) Respiration: 18 (08/27/2023 07:55) PO2: 96% (08/27/2023 07:55) Pain: 0 (08/27/2023 07:55) BMI: 31.4 Wt: 200 lb [90.72 kg] (08/27/2023 07:55) General Appearance: Pt pleasant, in NAD Mental Status: Pt alert, oriented. HEENT: Neck: Skin: intact Cardiac: Irr rhythm, reg rate; borderline bradycardic. Lungs: CTAB Abdomen: MSK: Extremities: See PAVE Exam Edema (x)None ()1+ ()2+ ()3+ ()4+ Pulses ()MARKET DEVELOPMENT MANAGER ()1+ (x)2+ ()3+ ()4+ Gait: Steady without assistive device Data/Labs: LAB RESULTS LAST 48 HRS - NONE FOUND Hemoglobin A1C: LAB TESTS SELECTED Collection DT Specimen Test Name Result Units Ref Range 01/14/2023 07:40 BLOOD !! HEMOGLOBIN A1C 6.2 H % 4.0 - 6.0 !! Indicates COMMENTS AVAILABLE...Refer to Interim Lab Report. Assessment and Plan: ----- # Hypertension: BP mildly elevated today, home BPs a bit over goal. We discussed increasing the lisinopril (is taking 1/2 tab 10 mg) vs continuing to monitor and f/u with PCP (scheduled later this summer). Pt elects to increase the lisinopril, as he doesn't like cutting the pills anyway. - Continue HCTZ/triamterene, Metoprolol - Increase Lisinopril to 10 mg daily ------->>>> PACT RN: Please fax today's clinic note to PCP Dr Woods - BMP today # Hyperlipidemia- Continues on Pravastatin # Paroxysmal afib/PFO closure 2000, continues with Warfarin. Is not taking ASA. Following with [facility] and [facility]. S/P cardioversion 03/25 for atrial flutter (symptomatic). Prescribed prophylactic ABx presumably for prior PFO closure; likely no longer indicated. -D/C order for ASA # Sleep apnea: adherent w[facility]AP[facility] # Diabetes type II, HgbA1c 6.2, stable. Diet controlled at this time. Eye exam at [place] 2 weeks ago without diabetic retinopathy. -BMP, check urine microalbumin # BCC: Right lateral superior forehead. Follows with derm. MOHS procedure June 2023. # Insomnia- Managed by community PCP. RTC in 1 year w/labs sooner prn (x ) Patient/Caregiver indicates readiness to learn, verbalizes understanding, agreement and satisfaction with the treatment plan. Patient/Caregiver doesn't have any further questions today. I have spent 35 minutes reviewing patients medical history, labs, interviewing and examining the patient and documenting my note. Diabetes: Kidney Health Evaluation: uACR (Urine Albumin-Creatinine Ratio) Quantitative urine creatinine and quantitative urine albumin lab tests were ordered. PAVE Foot Check: A complete foot check was completed at this encounter. VISUAL INSPECTION: Includes inspection for skin breaks, deformity, erythema, trauma, pallor on elevation, dependent rubor, nail deformities, extensive callus and pitting edema. Visual exam results: Normal PEDAL PULSES: Includes palpation of dorsalis and posterior tibial pulses and signs/symptoms of vascular compromise like pain, pallor, paresthesia or paralysis. Present (even if diminished) SENSORY CHECK: Includes 10 gram Monofilament ([place]) test of sensation. Intact (Greater than or equal to 80% of sites checked) Abnormal (Less than 80% of sites checked): Intact Comment: 5/5 bilaterally LOW-RISK: LOW RISK INFORMATION PROVIDED: 1. Advised patient not to walk barefoot. 2. Explained the importance of daily foot checks for changes. 3. Stressed the importance of daily foot hygiene, including bathing and complete drying. HTN Assess for Elevated BP>=140/90: The patient's medication regimen was adjusted to improve blood pressure control. Comment: lisinopril increased to 10 mg /bryant/ GUY LINDSAY PA-C PHYSICIAN ADHESIVE BONDING MACHINE OPERATOR Signed: 08/27/2023 08:42 Receipt Acknowledged By: 08/27/2023 11:13 /bryant/ SAMI KERN RN REGISTERED NURSE for ALEX MCGOWAN 08/27/2023 ADDENDUM STATUS: COMPLETED Faxed today's clinic note to PCP Dr Woods at F:[phone]. /bryant/ SAMI KERN RN REGISTERED NURSE Signed: 08/27/2023 11:22 GUY LINDSAY [facility]
[2023-11-13 08:57] LABS: Prothrombin Time 24.1 Seconds
--- NOTE | 2023-11-13 09:55 | P.ANES_ITS ---
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
--- NOTE | 2023-11-13 09:55 | W.ANESCHARGE ---
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
--- NOTE | 2023-11-13 10:28 | W.ANESCHARGE ---
Anesthesia Charges Start Date/Time Anesthesia Start Date: 11/13/23 Anesthesia Start Time: 09:41 Stop Date/Time Anesthesia Stop Date: 11/13/23 Anesthesia Stop Time: 09:50 Summary Emergency: MDA Extremes of Age - Over 70 or under 1: MDA
== END 2023-11-13 10:43 | disposition home or self-care (01) ==
PROVIDERS: Emergency Provider Emergency Medicine; PCP Family Medicine
DX: I48.92 Unspecified atrial flutter (principal)
CPT/HCPCS: 92960; 00410; 36415; 80048; 84484; 85025; 85610; 99100; 99140; 99284; 99291; J7030